=== PATIENT | female | born 1975 | race Caucasian/White ===

== ENCOUNTER 2022-09-11 16:35 | Emergency (ER) | payer BC, SELFPAY ==
[2022-09-11 16:44] VITALS: BP 140/72; PULSE 94; RESP 14; TEMP 36.7; O2SAT 100
[2022-09-11 16:58] VITALS: BP 140/72; PULSE 94; RESP 14; TEMP 36.7; O2SAT 100
--- NOTE | 2022-09-11 17:10 | ED.GENADULT ---
HPI - General Adult General Chief complaint: Urogenital-Female Stated complaint: Toothache/Facial Swelling Source: patient Mode of arrival: ambulatory Limitations: no limitations History of Present Illness HPI narrative: Patient presents for evaluation of multiple concerns. She reports right lower dental pain with associated swelling since yesterday. She indicates that she has a ?bad tooth? in the affected area. Pain is moderate in severity, without descriptive quality. No fever, chills, nausea, vomiting, trismus, problems handling secretions. She recently found out that her insurance does cover dental care so she is planning on scheduling appointment with a dentist. She is also concerned about some irritation to her vaginal area for the last few weeks. She has urinary frequency, itching, and feels ?cut up . She notes blood on the tissue when wiping after urination. She is in a sexually monogamous relationship with her . She denies vaginal discharge and other urinary symptoms. She states she has felt vaginal dryness as she has been going through menopause. She is diabetic with sees her blood sugars at home have been in the 150s. Related Data Home Medications Medication Instructions Recorded Confirmed gabapentin 100 mg tablet 100 mg PO DAILY 09/11/22 09/11/22 insulin aspart U-100 100 unit/mL 1 sliding scale dose subcut 09/11/22 09/11/22 (3 mL) subcutaneous pen (Novolog USEASDIRECTD Flexpen U-100 Insulin aspart) insulin glargine 100 unit/mL 8 unit subcut BID 09/11/22 09/11/22 subcutaneous solution (Lantus U-100 Insulin) Allergies Allergy/AdvReac Type Severity Reaction Status Date / Time hydrocodone Allergy Anxiety Verified 09/11/22 16:58 ibuprofen Allergy Swelling Verified 09/11/22 16:58 of Lip/Tongue/Throat Review of Systems Review of Systems: CONSTITUTIONAL: Denies fever, chills, or sweats. EYES: Denies visual changes, redness, or discharge. ENT: Reports right-sided dental pain with associated swelling. CARDIOVASCULAR: Denies chest pain, palpitations, or edema. RESPIRATORY: Denies cough or dyspnea. GASTROINTESTINAL: Denies abdominal pain, nausea, vomiting, or diarrhea. GENITOURINARY: Reports urinary frequency, vaginal irritation and dryness. Denies vaginal discharge or other urinary symptoms SKIN: Denies rash or itching. MUSCULOSKELETAL: Denies back pain, joint pain, or myalgia. NEUROLOGIC: Denies headache, numbness, dizziness, or weakness. PSYCHIATRIC: Denies anxiety or depression. [facility] Past Medical History Medical History Diabetes Surgical History Surgical History History of History of hand surgery Family History Family History Mother Family history non-contributory Social History Social History Living arrangements: with family Gender identity (if verbalized by the patient): Female Sexual Orientation (if Verbalized by the Patient): Straight or Heterosexual Spiritual care concerns: No Exam Narrative: GENERAL: Well-appearing, well-nourished, and in no acute distress. HEAD: Normocephalic, atraumatic. EYES: PERRLA and EOMI. ENT: Nares clear, no rhinorrhea or epistaxis. Mucous membranes moist. Tooth #29 is fractured. There is tenderness in the gum line adjacent to tooth #29 but there is no discrete drainable fluid collection visualized or palpated. There is right sided mandibular swelling. Oropharynx without tonsillar hypertrophy exudate or other lesions. Bilateral TMs pearly blake nonbulging NECK: Supple. No adenopathy or masses. No carotid bruits or JVD CHEST: Clear to auscultation. No respiratory distress. No wheezes rales or rhonchi HEART: Regular rate and rhythm. No murmur heard. Normal peripheral pulses.
== END 2022-09-11 17:31 | disposition home or self-care (01) ==
PROVIDERS: Emergency Provider Nurse Practitioner; PCP Nurse Practitioner Family
DX: N76.0 Acute vaginitis (principal); S02.5XXA Fracture of tooth (traumatic), initial encounter for closed fracture; X58.XXXA Exposure to other specified factors, initial encounter; E11.9 Type 2 diabetes mellitus without complications
CPT/HCPCS: 81003; 87070; 87491; 87591; 87661; 99214; G0463

== ENCOUNTER 2023-02-17 08:50 | Emergency (ER) | payer BC, SELFPAY ==
[2023-02-17 08:58] VITALS: BP 139/93; PULSE 93; RESP 20; TEMP 36.6; O2SAT 100
--- NOTE | 2023-02-17 08:58 | ED.EAR ---
HPI - Ear Problem General Chief complaint: Ear Stated complaint: ear clogged Time Seen by Provider: 02/17/23 08:58 Source: patient, family and RN notes reviewed History of Present Illness HPI Narrative: Patient is a 47-year-old female who presents to urgent care with complaints of bilateral ear clogging. Patient states that she is having ringing in the ears and feels muffled. Patient has not taken anything [id number] for her symptoms. Denies any other upper respiratory complaints. No acute distress noted. Patient aware of plan of care. Some parts of this dictation were generated by voice recognition software and may contain typographical and/or grammatical inaccuracies. Related Data Home Medications Medication Instructions Recorded Confirmed insulin glargine 100 unit/mL 8 unit subcut BID 09/11/22 09/11/22 subcutaneous solution (Lantus U-100 Insulin) insulin lispro 100 unit/mL subcut 02/17/23 02/17/23 subcutaneous pen Allergies Allergy/AdvReac Type Severity Reaction Status Date / Time hydrocodone Allergy Anxiety Verified 02/17/23 09:07 ibuprofen Allergy Swelling Verified 02/17/23 09:07 of Lip/Tongue/Throat Review of Systems Review of Systems: CONSTITUTIONAL: Denies fever, chills, or sweats. EYES: Denies visual changes, redness, or discharge. ENT: Denies rhinorrhea, congestion, sore throat. Reports of bilateral otalgia CARDIOVASCULAR: Denies chest pain, palpitations, or edema. RESPIRATORY: Denies cough or dyspnea. GASTROINTESTINAL: Denies abdominal pain, nausea, vomiting, or diarrhea. GENITOURINARY: Denies dysuria or hematuria. SKIN: Denies rash or itching. MUSCULOSKELETAL: Denies back pain, joint pain, or myalgia. NEUROLOGIC: Denies headache, numbness, or weakness. All other systems reviewed are negative, except as documented in HPI. [facility] Past Medical History Medical History (Updated 02/17/23 @ 09:44 by JULIA Selby) Diabetes Surgical History Surgical History History of History of hand surgery Family History Family History Mother Family history non-contributory Social History Social History Living arrangements: with family Gender identity (if verbalized by the patient): Female Sexual Orientation (if Verbalized by the Patient): Straight or Heterosexual Spiritual care concerns: No Comments At the time of my signature, I reviewed and agree with the nursing past medical, surgical, social, and family history. There is no relevant family history pertinent to the patient complaint. Exam Narrative: GENERAL: This is a well-nourished, well-developed patient, in no apparent distress. HEAD: normocephalic, atraumatic. EYES: PERRL. Sclera clear/white. Vision is grossly intact. EARS: External ears normal, auditory canals clear and without drainage, unable to visualize bilateral TMs due to cerumen impaction NOSE: External nose normal with no obvious nasal discharge, nares without redness, no rhinorrhea. THROAT: Mucous membranes moist NECK: Neck supple SKIN: warm, intact with no suspicious lesions or rash, good texture and turgor. NEURO: awake, alert, and oriented to person, place and time. There were no obvious focal neurologic abnormalities. EXTREMITIES: No clubbing, cyanosis, or edema. Course Course Level of Care: Express Care Visit Vital Signs Vital signs: Vital Signs Temperature 97.8 F 02/17/23 08:58 Pulse Rate 93 02/17/23 08:58 Respiratory Rate 20 02/17/23 08:58 Blood Pressure 139/93 H 02/17/23 08:58 Pulse Oximetry 100 02/17/23 08:58 Oxygen Delivery Room Air 02/17/23 08:58 Temperature 97.8 F 02/17/23 08:58 Pulse Rate 93 02/17/23 08:58 Respiratory Rate 20 02/17/23 08:58 Blood Pressure 139/93 H 02/17/23 08:58 Pulse Oximetry 100
== END 2023-02-17 09:46 | disposition home or self-care (01) ==
PROVIDERS: Emergency Provider Nurse Practitioner Family; PCP Nurse Practitioner Family
DX: H61.23 Impacted cerumen, bilateral (principal); E11.9 Type 2 diabetes mellitus without complications
CPT/HCPCS: 69210; 99213; G0463

== ENCOUNTER 2023-05-20 08:08 | Emergency (ER) | payer BC, SELFPAY ==
[2023-05-20 08:12] VITALS: BP 154/97; PULSE 95; RESP 16; TEMP 36.3; O2SAT 100
--- NOTE | 2023-05-20 08:15 | ED.FEMALEGU ---
HPI - Female Genitourinary General Chief complaint: Urogenital-Female Stated complaint: Urinary Problem Source: patient and RN notes reviewed History of Present Illness HPI Narrative: 47 yo F Presents to urgent care with complaints of urinary urgency x 2 days. Pt reports a pressure in her mid lower pelvic region. Pt admits to having her initial appt with a GI MD next month to be evaluated for IBS. Pt reports having loose, watery, bowels at times and feels like there is a hard stool that she is unable to get out. Pt denies any burning with urination. Pt denies any known fevers, vomiting, flank pain, or concern for STIs. Related Data Home Medications Medication Instructions Recorded Confirmed insulin glargine 100 unit/mL 8 unit subcut BID 09/11/22 05/20/23 subcutaneous solution (Lantus U-100 Insulin) insulin lispro 100 unit/mL subcut 02/17/23 02/17/23 subcutaneous pen Allergies Allergy/AdvReac Type Severity Reaction Status Date / Time hydrocodone Allergy Anxiety Verified 02/17/23 09:07 ibuprofen Allergy Swelling Verified 02/17/23 09:07 of Lip/Tongue/Throat Penicillins Allergy Rash Verified 05/20/23 08:17 Review of Systems Review of Systems: Pertinent positives and pertinent negatives per HPI. [facility] Past Medical History Medical History (Updated 05/20/23 @ 08:31 by Hodan Dong APRN) Diabetes Surgical History Surgical History History of History of hand surgery Family History Family History Mother Family history non-contributory Social History Social History Living arrangements: with family Gender identity (if verbalized by the patient): Female Sexual Orientation (if Verbalized by the Patient): Straight or Heterosexual Spiritual care concerns: No Comments At the time of my signature, I reviewed and agree with the nursing past medical, surgical, social, and family history. There is no relevant family history pertinent to the patient complaint. Exam Narrative: GENERAL: This is a well-nourished, well-developed patient, in no apparent distress. HEAD: normocephalic, atraumatic. EYES: Sclera clear/white. Vision is grossly intact. EARS: External ears normal, auditory canals clear and without drainage. Hearing grossly intact. NOSE: External nose normal with no obvious nasal discharge, nares without redness, no rhinorrhea. THROAT: Mucous membranes moist, posterior pharynx clear. NECK: Neck supple, non-tender without lymphadenopathy, masses or thyromegaly. CARDIOVASCULAR: Regular rate and rhythm without murmurs, gallops, or rubs. RESPIRATORY: Clear to auscultation. Breath sounds equal bilaterally. No wheezes, rales, or rhonchi. GASTROINTESTINAL:Abdomen soft, non-tender. bowel sounds hypoactive. SKIN: warm, intact with no suspicious lesions or rash, good texture and turgor. NEURO: awake, alert, and oriented to person, place and time. There were no obvious focal neurologic abnormalities. EXTREMITIES: No clubbing, cyanosis, or edema. No joint tenderness, effusion, or edema noted. BACK: Nontender without deformity or crepitus. No flank tenderness. Course Course Level of Care: Express Care Visit Vital Signs Vital signs: Vital Signs Temperature 97.3 F L 05/20/23 08:12 Pulse Rate 95 05/20/23 08:12 Respiratory Rate 16 05/20/23 08:12 Blood Pressure 154/97 H 05/20/23 08:12 Pulse Oximetry 100 05/20/23 08:12 Oxygen Delivery Room Air 05/20/23 08:12 Temperature 97.3 F L 05/20/23 08:18 Pulse Rate 95 05/20/23 08:18 Respiratory Rate 16 05/20/23 08:18 Blood Pressure 154/97 H 05/20/23 08:18 Pulse Oximetry 100 05/20/23 08:18 Oxygen Delivery Room Air 05/20/23 08:18 Reviewed MDM - Female Genitourinary MDM Narrative Medical decision making narrative
[2023-05-20 08:18] VITALS: BP 154/97; PULSE 95; RESP 16; TEMP 36.3; O2SAT 100
== END 2023-05-20 08:38 | disposition home or self-care (01) ==
PROVIDERS: Emergency Provider Nurse Practitioner Family; PCP Nurse Practitioner Family
DX: K59.00 Constipation, unspecified (principal); E11.9 Type 2 diabetes mellitus without complications; Z79.4 Long term (current) use of insulin
CPT/HCPCS: 81003; 99212; G0463

== ENCOUNTER 2024-09-08 16:53 | Emergency (ER) | payer BC, SELFPAY ==
[2024-09-08 17:04] VITALS: BP 144/71; PULSE 76; RESP 16; TEMP 36.8; O2SAT 100
--- NOTE | 2024-09-08 17:10 | ED.DENTAL ---
HPI - Dental/Oral General Chief complaint: Dental/Oral Stated complaint: tooth pain History of Present Illness HPI Narrative: NO FEVER. NO JAW SWELLING. NO NECK SWELLING. NO LIMITATION WITH SPEAKING OR SWALLOWING. HAS A HISTORY OF DENTAL CARIES. HAS NOT SEEN A DENTIST RECENTLY. Related Data Home Medications Medication Instructions Recorded Confirmed blood-glucose sensor (Dexcom G7 09/08/24 09/08/24 Sensor device) gabapentin 100 mg capsule mg 09/08/24 insulin lispro 100 unit/mL subcut 09/08/24 subcutaneous pen Allergies Allergy/AdvReac Type Severity Reaction Status Date / Time hydrocodone Allergy Anxiety Verified 02/17/23 09:07 ibuprofen Allergy Swelling Verified 02/17/23 09:07 of Lip/Tongue/Throat Penicillins Allergy Rash Verified 05/20/23 08:17 Review of Systems Review of Systems: CONSTITUTIONAL: Denies fever, chills, or sweats. EYES: Denies visual changes, redness, or discharge. ENT: Denies rhinorrhea, congestion, sore throat, or otalgia. CARDIOVASCULAR: Denies chest pain, palpitations, or edema. RESPIRATORY: Denies cough or dyspnea. GASTROINTESTINAL: Denies abdominal pain, nausea, vomiting, or diarrhea. GENITOURINARY: Denies dysuria or hematuria. SKIN: Denies rash or itching. MUSCULOSKELETAL: Denies back pain, joint pain, or myalgia. NEUROLOGIC: Denies headache, numbness, or weakness. PSYCHIATRIC: Denies anxiety or depression. [facility] Past Medical History Medical History (Updated 09/08/24 @ 17:11 by JULIA Nixon) Diabetes Surgical History Surgical History History of History of hand surgery Family History Family History Mother Family history non-contributory Social History Social History Living arrangements: with family Gender identity (if verbalized by the patient): Female Sexual Orientation (if Verbalized by the Patient): Straight or Heterosexual Spiritual care concerns: No Comments At time of signature, agree with nursing past medical, surgical, social and family history. There is no relevant family history pertinent to the presenting complaint Exam Narrative: GENERAL: Well-appearing, well-nourished, and in no acute distress. HEAD: Normocephalic, atraumatic. EYES: PERRLA and EOMI. ENT: Nares clear, no rhinorrhea or epistaxis. Mucous membranes moist. NO EVE APICAL SWELLING, TOOTH TENDER TO PALPATION. NO FACIAL SWELLING. NO TRISMUS. ABLE TO OPEN MOUTH FULLY. NO NECK SWELLING OR REBEKA'S ANGINA. NO ABSCESS TO BE DRAINED. no drooling, trismus, facial asymmetry or significant neck swelling NECK: Supple. CHEST: Clear to auscultation. No respiratory distress. HEART: Regular rate and rhythm. No murmur heard. Normal peripheral pulses. ABDOMEN: Soft, nontender, nondistended, normal active bowel sounds. EXTREMITIES: Normal range of motion. No edema. SKIN: Warm, dry, no rash. NEURO: No focal deficits. Alert and oriented x3. Martha Coma Scale Eye Opening: Spontaneous 4 [place] Coma Scale Motor: Obeys Commands 6 Martha Coma Scale Verbal: Oriented 5 [place] Coma Scale Total 15 Course Course Level of Care: Express Care Visit Vital Signs Vital signs: Vital Signs Temperature 36.8 C 09/08/24 17:04 Pulse Rate 76 09/08/24 17:04 Respiratory Rate 16 09/08/24 17:04 Blood Pressure 144/71 H 09/08/24 17:04 Pulse Oximetry 100 09/08/24 17:04 Oxygen Delivery Room Air 09/08/24 17:04 Temperature 36.8 C 09/08/24 17:04 Pulse Rate 76 09/08/24 17:04 Respiratory Rate 16 09/08/24 17:04 Blood Pressure 144/71 H 09/08/24 17:04 Pulse Oximetry 100 09/08/24 17:04 Oxygen Delivery Room Air 09/08/24 17:04 Please GAURAV schedule a followup visit with your personal physician for further evaluation and treatment. Including recheck and discussion of your blood pressure. If your symptoms persist, change or worsen significantly before you can contact your personal physician then please, without delay, go to the emergency department for further evaluation Discharge Plan Discharge Clinical Impression: Dental caries, Toothache, Dental abscess Patient Disposition: Home, Self-Care Condition: Stable Instructions: Antibiotic Form Additional Instructions: Dental discharge Avoid temperature extremes May apply heat or ice to the face Gentle brushing and flossing Antibiotic as directed Tylenol for lesser pain Follow-up with the dentist as soon as possible--see the list provided -If you have any worsening of symptoms or any other concerns please go to the ED immediately. Prescriptions: New clindamycin HCl [Cleocin HCl] 300 mg capsule 300 mg PO Q8H 7 Days Qty: 21 0RF lidocaine HCl [Lidocaine Viscous] 2 % solution 1 applic MUCOUS MEM BID PRN (Reason: pain) 3 Days Qty: 100 0RF No Action gabapentin 100 mg capsule insulin lispro 100 unit/mL insulin pen SUBCUT (DME) Dexcom G7 Sensor Device MISCELLANEOUS Follow-up/Referrals: Lisa,Radha Freire APN [Primary Care Provider] -
== END 2024-09-08 17:16 | disposition home or self-care (01) ==
PROVIDERS: Emergency Provider Nurse Practitioner Family; PCP Nurse Practitioner Family
DX: K02.9 Dental caries, unspecified (principal); K04.7 Periapical abscess without sinus; E11.9 Type 2 diabetes mellitus without complications
CPT/HCPCS: 99213; G0463

== ENCOUNTER 2025-05-26 11:33 | Emergency (ER) | payer BC, SELFPAY ==
--- OUTSIDE RECORDS SUMMARY | 2025-05-26 11:35 | XMS_ITS | Continuity of Care Document ---
Author Organization [facility] Address [id number] [place] [address] [address] [place] [address] Phone Care Team Providers Care Blower Insulator Name Role Phone Jovita Gautam Unavailable Unavailable Advance Directives Directive Yes / No Effective Date File Name No Information Encounters Encounter Description Practice Location Reason(s) For Visit Diagnoses Date Provider Providers Copied on Encounter [facility], [id number] [place] [address] [address], [place], [place], [id number], [place] tel:[phone] [facility] No Information 3 Lotus Hussein. [address] , [address], [place], [address], [place]. tel:[phone] Referring Provider: Benji Monreal MD, [address], [facility]. tel:[phone] Family History Family Member Type Diagnosis Age At Onset No Information Payers Payer name Insurance type Covered constitution party ID Authoriza tion(s) No Information Social [...]
--- OUTSIDE RECORDS SUMMARY | 2025-05-26 11:35 | XMS_ITS | Continuity of Care Document ---
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 Name Role Phone Unavailable Unavailable Unavailable Allergies, [...] EAR STICK) OFFICE/OUTPATIENT VISIT, EST OFFICE/OUTPATIENT VISIT, [facility] COLLECTION OF VENOUS BLOOD BY VENIPUNCTU Advance Directives Directive Yes / No Effective Date File Name No Information Encounters Encounter Description Practice Location Reason(s) For Visit Diagnoses Date Provider Providers Copied on Encounter [facility], [address], [place], [place], [id number] , [place] tel: [phone] [facility] No Information 4 No Information [facility], [address], [place], [place], [id number] , [place] tel:[phone] [facility] No Information 3 No Information OFFICE/OUTPA TIENT VISIT, EST [facility], [address], [place], [place], [id number] , [place] tel: [phone] [facility] diabetes (chief complaint) allergies (chief complaint) back pain (chief complaint) Diabetes with ketoacidosis, type I [juvenile type], not stated as uncontrolledAllerg ic reaction caused by a drugLumbagoRoutine general medical examination at a health care facility 3 No Information OFFICE/OUTPA TIENT VISIT, MARIANNA [facility], [address], [place], [place], [id number] , [place] tel: [phone] Helga Grimaldo rt eye problem (chief complaint) Diabetes mellitus without mention of complication, type II or unspecified type, not stated as uncontrolledHordeo lum externum 2 No Information OFFICE/OUTPA TIENT VISIT, CONNIE [facility], [address], [place], [place], [id number] , [place] tel: [phone] Helga Grimaldo diabetes (chief complaint) blisters on feet (chief complaint) preegnancy test (chief complaint) Diabetes with ketoacidosis, type I [juvenile type], not stated as uncontrolledDiabet es mellitus without mention of complication, type II or unspecified type, not stated as uncontrolled 2 No Information Family History Family Member Type Diagnosis Age At Onset No Information Payers Payer name Insurance type Covered libertarian ID Authoriza tion(s) No Information Social History [...] t No Information Instructions Date Instruction Additional Infotabitha page Reviewed medications Change medication Patient understood and made info rmed decision Continue current medication Assessments Type Assessment Date No Information Patient Care Teams Name Effective Dates (start - stop) Status Members No Information
--- OUTSIDE RECORDS SUMMARY | 2025-05-26 11:35 | XMS_ITS | Data Portability ---
Author Organization [facility] Address [address] [place] [address] Care Team Providers Care Dependency Counselor Name Role Phone TIMO, RADHA Primary Care Provider [phone] RANJANA JORDAN Jacquard Lace Weaver Unavailable Assessment No assessment recorded. Plan of Treatment Reminders Order Date Submit Date Provider Last Modified By Organization Details Last Modified Time Details Appointments None recorded. Lab HbA1c (hemoglobin A1c), blood 2024 025 [facility], [address] [facility], [place], [address], 12:12:32 microalbumi n/creatinin e, mass ratio, urine 2024 025 [facility], [address] [facility], [place], [address], 12:12:29 TSH, ultra-sensi tive, serum 2024 025 [facility], [address], [place], [address], 12:12:31 CMP, serum or plasma 2024 025 [facility], [address], [place], [address], 12:12:24 lipid panel, serum 2024 025 NATHAN [facility], [address], [place], [address], 5 12:12:23 CBC 2024 025 NATHAN [facility], [address], [place], [address], 5 12:12:26 vaginal pathogens panel, ILIR+probe, vaginal fluid 2023 024 NATHAN [facility], [address], [place], [address], 4 18:35:49 Hepatitis C IgG Ab, qual, serum 2023 024 eemeryma [facility], [address], [place], [address], 4 16:13:54 HIV 1 + 2, meaningful use set 2023 024 eemeryma [facility], [address], [place], [address], 4 10:01:45 cytology report, thin prep, smear or scraping, cervical or vaginal 2023 024 [facility], [address], [place], [address], 4 14:36:26 HbA1c (hemoglobin A1c), blood 2023 024 In-Office Order, Internal Use Only DO Not Attach Compendium DO Not Attach Compendium, Do Not Delete/merge, [id number] 4 10:47:48 TITO (antinuclea r antibodies) screen, serum 2022 023 [facility], [address], [place], [address], 3 16:14:00 erythrocyte sedimentati on rate by westergren method 2022 023 [facility], [address] [facility], [facility], [place], [address], 3 16:14:02 C reactive protein, QN, serum or plasma 2022 023 [facility], [address] [facility], [facility], [place], [address], 3 16:14:03 microalbumi n/creatinin e, mass ratio, urine 2022 023 [facility], [address] [facility], [facility], [place], [address], 3 16:13:59 HbA1c (hemoglobin A1c), blood 2022 023 [facility], [address] [facility], [facility], [place], [address], 3 16:14:01 rf (rheumatoid factor) + anti-ccp abs, serum 2022 023 [facility], [address] [facility], [facility], [place], [address], 3 16:13:59 TSH, ultra-sensi tive, serum 2022 023 [facility], [address], [place], [address], 3 16:14:01 CMP, serum or plasma 2022 023 [facility], [address], [place], [address], 3 20:08:50 lipid panel, serum 2022 023 [facility], [address] [facility], [facility] [address], [place], [address], 3 20:08:49 CBC 2022 023 [facility], [address] [facility] [address], [place], [address], 3 20:08:51 Referral gastroenter ologist referral 2023 024 [email or web address] Augustine Jung MD, [address] [place], [address], 4 11:35:19 gastroenter ologist referral 2022 023 [email or web address] Augustine Jung MD, [address] [place], [address], 3 12:00:18 diabetic ophthalmolo gy referral 2022 023 [email or web address], [address], [place], [address], 3 15:40:30 numerical tool programmer referral 2022 023 [email or web address] [facility], [address], [place], [address], 3 16:44:28 Procedures None recorded. Surgeries None recorded. Imaging MAMMO, screening, digital, bilateral 2023 024 eemeryma [facility] ([facility] Scheduling, [address] [place], [address], 4 17:03:03 Medication Orders cephalexin 500 mg capsule 2024 025 [id number], [address], [place], [place], [id number], 5 09:44:27 estradiol 0.01% (0.1 mg/gram) vaginal cream 2023 025 [id number], [address], [place], [place], [id number], 5 11:11:35 gabapentin 100 mg capsule 2023 024 [id number], [address], [place], [place], [id number], 5 09:44:47 gabapentin 100 mg capsule 2022 023 NATHAN [facility][id number], [address], [place], [place], [id number], 3 10:00:17 Patient TargetsNo targets recorded. Patient Instructions Encounter Date Encounter Id Patient Instructions Last Modified By Organization Details Last Modified Time 06/23/2023 [id number] Quitting Tobacco : Care Instructions Not available 06/23/2023 10:00:09 learning about type 1 diabetes Not available 06/23/2023 10:00:09 type 1 diabetes: care instructions Not available 06/23/2023 10:00:09 Continue to work on diet and decrease A1C to < 7 with fasting glucose 100. Need to see eye drMartine each year for dilated eye exam. Increase activity level to get exercise most days of the week. Work on eating more fresh fruit, veggies and lean protein and less packaged foods. Cut back on the fatty foods, add fish oil or omega three fatty acids; red yeast rice may also help. Drink more water! Low salt diet. Take all medications as prescribed. Keep appointments with PCP and all specialists. Not available 06/23/2023 10:01:30 dwp labs needed, plan pending results schedule for 6 mos Not available 06/23/2023 14:20:47 01/12/2024 [id number] tailbone injury: care instructions Not available 01/12/2024 10:50:56 learning about type 1 diabetes Not available 01/12/2024 10:47:45 type 1 diabetes: care instructions Not available 01/12/2024 10:47:45 Continue to work on diet and decrease A1C to < 7 with fasting glucose 100. Need to see eye dr. each year for dilated eye exam. Increase activity level to get exercise most days of the week. Work on eating more fresh fruit, veggies and lean protein and less packaged foods. Cut back on the fatty foods, add fish oil or omega three fatty acids; red yeast rice may also help. Drink more water! Low salt diet. Take all medications as prescribed. Keep appointments with PCP and all specialists. Not available 01/12/2024 10:47:59 f/u 6 months DWP barriers to care: none Not available 01/12/2024 10:48:35 11/22/2024 [id number] Quitting Tobacco : Care Instructions Not available 11/22/2024 11:36:31 learning about type 1 diabetes Not available 11/22/2024 11:36:32 type 1 diabetes: care instructions Not available 11/22/2024 11:36:31 Increase intake of fresh fruits, and vegetables. Avoid packaged foods and fast foods. Follow a low salt diet, drink at least 8-10 8oz glasses of water a day, exercise most days of the week. Take all medications as prescribed. Keep appointments with PCP and all specialists. Not available 11/22/2024 11:36:56 follow up as needed, yearly to keep established with provider Not available 11/22/2024 11:37:12 03/11/2025 [id number] learning about type 1 diabetes Not available 03/11/2025 09:59:56 type 1 diabetes: care instructions Not available 03/11/2025 09:59:56 Continue all medications as prescribed. Not available 03/11/2025 09:58:45 follow up in 6 months Not available 03/11/2025 09:58:57 Reason for Referral Console Operator Referral for Altered bowel function Referring Physician: [facility], Encounter Date: 06/23/2023 Compensation Director Referral for Neur opathy due to diabetes mellitus Referring Physician: Family Tacho Garcia, Encounter Date: 06/23/2023 Diabetic Ophthalmology Refer ral for Type 1 diabetes mellitus Referring Physician: Family Tacho Garcia, Encounter Date: 06/23/2023 Console Operator Referral for Altered bowel function Referring Physician: Family Tacho Garcia, Encounter Date: 01/12/2024 Results Created Date Observation Date Name Description Value Unit Range Abnormal Flag Note LastModifiedBy Organization Detail LastModifiedTime 06/23/20 23 06/23/2023 LIPID PANEL cholesterol, total 223 mg/dL 100-19 9 above high normal Not Available [facility] Department [address] [place] [address], [address], 06/23/2023 20:08:49 06/23/20 23 06/23/2023 LIPID PANEL triglyceride s 87 mg/dL 0-149 Not Available [facility] Department [address] [place] [address], [address], 06/23/2023 20:08:49 06/23/20 23 06/23/2023 LIPID PANEL HDL cholesterol 92 mg/dL 40-999 Not Available [facility] Department [address] [place], [address], 06/23/2023 20:08:49 06/23/20 23 06/23/2023 LIPID PANEL VLDL cholesterol prasanth 17 mg/dL 5-40 Not Available [facility] Department [address] [place], [address], 06/23/2023 20:08:49 06/23/20 23 06/23/2023 LIPID PANEL LDL chol calc ([facility]) 127 mg/dL 0-99 above high normal Not Available [facility] Department [address] [place], [address], 06/23/2023 20:08:49 06/23/20 23 06/23/2023 COMP. METAB OLIC PANEL (14) glucose 165 mg/dL 70-99 above high normal Not Available [facility] Department [address] [place], [address], 06/23/2023 20:08:50 06/23/20 23 06/23/2023 COMP. METAB OLIC PANEL (14) BUN 12 mg/dL 6-[address] [facility] Department [address] [place], [address], 06/23/2023 20:08:50 06/23/20 23 06/23/2023 COMP. METAB OLIC PANEL (14) creatinine 0.63 mg/dL 0.76-1 .27 below low normal Not Available [facility] Department [address] [place], [address], 06/23/2023 20:08:50 06/23/20 23 06/23/2023 COMP. METAB OLIC PANEL (14) eGFR 110 >=60 Units for eGFR value s are mL/mi n/1.7 3 The eGFR Calcu latio n has not been valid ated for patie nts under the age of 18. If test resul ts are displ ayed for a patie nt under the age of 18, disre nannette that value . Not Available [facility] Department [address] [place] [address], [address], 06/23/2023 20:08:50 06/23/20 23 06/23/2023 COMP. METAB OLIC PANEL (14) BUN/creatini ne ratio 20 9-23 Not Available [facility] Department [address] [place], [address], 06/23/2023 20:08:50 06/23/20 23 06/23/2023 COMP. METAB OLIC PANEL (14) sodium 143 mmol/ L 134-[address] [facility] Department [address] [place] [address], [address], 06/23/2023 20:08:50 06/23/20 23 06/23/2023 COMP. METAB OLIC PANEL (14) potassium 4.0 mmol/ L 3.5-5. [address] [facility] Department [address] [place], [address], 06/23/2023 20:08:50 06/23/20 23 06/23/2023 COMP. METAB OLIC PANEL (14) chloride 98 mmol/ L 96-[address] [facility] Department [address] [place], [address], 06/23/2023 20:08:50 06/23/20 23 06/23/2023 COMP. METAB OLIC PANEL (14) carbon dioxide, total 32 mmol/ L 20-29 above high normal Not Available [facility] Department [address] [place], [address], 06/23/2023 20:08:50 06/23/20 23 06/23/2023 COMP. METAB OLIC PANEL (14) calcium 9.8 mg/dL 8.7-[address] [facility] Department [address] [place], [address], 06/23/2023 20:08:50 06/23/20 23 06/23/2023 COMP. METAB OLIC PANEL (14) protein, total 7.4 g/dL 6.0-8. [address] [facility] Department [address] [place], [address], 06/23/2023 20:08:50 06/23/20 23 06/23/2023 COMP. METAB OLIC PANEL (14) albumin 4.6 g/dL 3.9-4. [address] [facility] Department [address] [place], [address], 06/23/2023 20:08:50 06/23/20 23 06/23/2023 COMP. METAB OLIC PANEL (14) globulin, total 2.8 g/dL 1.5-4. [address] [facility] Department [address] [place], [address], 06/23/2023 20:08:50 06/23/20 23 06/23/2023 COMP. METAB OLIC PANEL (14) A/G ratio 1.7 1.2-2. [address] [facility] Department [address] [place], [address], 06/23/2023 20:08:50 06/23/20 23 06/23/2023 COMP. METAB OLIC PANEL (14) bilirubin, total 0.3 mg/dL 0.0-1. [address] [facility] Department [address] [place] [address], [address], 06/23/2023 20:08:50 06/23/20 23 06/23/2023 COMP. METAB OLIC PANEL (14) alkaline phosphatase 77 IU/L 44-121 Not Available [facility] Department [address] [place] [address], [address], 06/23/2023 20:08:50 06/23/20 23 06/23/2023 COMP. METAB OLIC PANEL (14) AST (SGOT) 31 IU/L 0-40 Not Available [facility] Department [address] [place], [address], 06/23/2023 20:08:50 06/23/20 23 06/23/2023 COMP. METAB OLIC PANEL (14) ALT (SGPT) 29 IU/L 0-32 Not Available [facility] Department [address] [place] [address], [address], 06/23/2023 20:08:50 06/23/20 23 06/23/2023 CBC, NO DIFFE RENTI AL/PL ATELE T WBC 8.3 x10e3 /uL 3.4-[address] [facility] Department [address] [place] [address], [address], 06/23/2023 20:08:51 06/23/20 23 06/23/2023 CBC, NO DIFFE RENTI AL/PL ATELE T RBC 4.39 x10e6 /uL 3.77-[address] [facility] Department [address] [place], [address], 06/23/2023 20:08:51 06/23/20 23 06/23/2023 CBC, NO DIFFE RENTI AL/PL ATELE T hemoglobin 13.6 g/dL 11.1-[address] [facility] Department [address] [place], [address], 06/23/2023 20:08:51 06/23/20 23 06/23/2023 CBC, NO DIFFE RENTI AL/PL ATELE T hematocrit 42.5 % 34.0-[address] [facility] Department [address] [place], [address], 06/23/2023 20:08:51 06/23/20 23 06/23/2023 CBC, NO DIFFE RENTI AL/PL ATELE T MCV 97 fL 79-[address] [facility] Department [address] [place], [address], 06/23/2023 20:08:51 06/23/20 23 06/23/2023 CBC, NO DIFFE RENTI AL/PL ATELE T MCH 31.0 pg 26.6-[address] [facility] Department [address] [place], [address], 06/23/2023 20:08:51 06/23/20 23 06/23/2023 CBC, NO DIFFE RENTI AL/PL ATELE T MCHC 32.0 g/dL 31.5-[address] [facility] Department [address] [place], [address], 06/23/2023 20:08:51 06/23/20 23 06/23/2023 CBC, NO DIFFE RENTI AL/PL ATELE T RDW 13.2 % 11.5-[address] [facility] Department [address] [place], [address], 06/23/2023 20:08:51 06/23/20 23 06/23/2023 CBC, NO DIFFE RENTI AL/PL ATELE T NRBC 0 % 0-0 Not Available [facility] Department [address] [place], [address], 06/23/2023 20:08:51 06/23/20 23 06/24/2023 ALBUM IN/CR EAT RATIO , RANDO M UR creatinine, urine 92.7 mg/dL notest ab. Not Available [facility] ([facility]) [address] [place], [address], 06/24/2023 16:13:59 06/23/20 23 06/24/2023 ALBUM IN/CR EAT RATIO , RANDO M UR albumin, urine 5.4 ug/mL notest ab. Not Available [facility] ([facility]) [address] [place], [address], 06/24/2023 16:13:59 06/23/20 23 06/24/2023 ALBUM IN/CR EAT RATIO , RANDO M UR alb/creat ratio 6 mg/g_ creat 0-29 Sabina l: 0 - 29 Moder ately incre ased: 30 - 300 Sever phu incre ased: >300 Not Available [facility] ([facility]) [address] [place], [address], 06/24/2023 16:13:59 06/23/20 23 06/24/2023 RHEUM ATOID ARTHR ITIS PROFI LE rheumatoid factor (rf) <10.0 IU/mL <14.0 Not Available [facility] ([facility]) [address] [place], [address], 06/24/2023 16:13:59 06/23/20 23 06/24/2023 RHEUM ATOID ARTHR ITIS PROFI LE anti-ccp Ab, IgG/IgA 3 units 0-19 Negat lucrecia <20 Weak posit lucrecia 20 - 39 Moder ate posit lucrecia 40 - 59 Stron g posit lucrecia >59 Not Available [facility] ([facility]) [address] [place], [address], 06/24/2023 16:13:59 06/23/20 23 06/24/2023 ANTIN UCLEA R AB MULTI PLEX RFX 9 TITO direct Positi ve negati ve abnormal Not Available [facility] ([facility]) [address] [place], [address], 06/24/2023 16:14:00 06/23/20 23 06/24/2023 ANTIN UCLEA R AB MULTI PLEX RFX 9 anti-DNA (ds) Ab qn 1 IU/mL 0-9 Negat lucrecia <5 Equiv ocal 5 - 9 Posit lucrecia >9 Not Available [facility] ([facility]) [address] [place], [address], 06/24/2023 16:14:00 06/23/20 23 06/24/2023 ANTIN UCLEA R AB MULTI PLEX RFX 9 senior cytogenetics laboratory director antibodies 1.2 ai 0.0-0. 9 above high normal Not Available [facility] ([facility]) [address] [place], [address], 06/24/2023 16:14:00 06/23/20 23 06/24/2023 ANTIN UCLEA R AB MULTI PLEX RFX 9 chatman antibodies <0.2 ai 0.0-0. 9 Not Available [facility] ([facility]) [address] [place], [address], 06/24/2023 16:14:00 06/23/20 23 06/24/2023 ANTIN UCLEA R AB MULTI PLEX RFX 9 antisclerode rma-70 antibodies <0.2 Not Available [facility] ([facility]) [address] [place], [address], 06/24/2023 16:14:00 06/23/20 23 06/24/2023 ANTIN UCLEA R AB MULTI PLEX RFX 9 sjogren's anti-ss-A <0.2 Not Available [facility] ([facility]) [address] [place], [address], 06/24/2023 16:14:00 06/23/20 23 06/24/2023 ANTIN UCLEA R AB MULTI PLEX RFX 9 sjogren's anti-ss-B <0.2 Not Available [facility] ([facility]) [address] [place], [address], 06/24/2023 16:14:00 06/23/20 23 06/24/2023 ANTIN UCLEA R AB MULTI PLEX RFX 9 antichromati n antibodies <0.2 Not Available [facility] ([facility]) [address] [place], [address], 06/24/2023 16:14:00 06/23/20 23 06/24/2023 ANTIN UCLEA R AB MULTI PLEX RFX 9 anti-celeste-1 <0.2 Not Available [facility] ([facility]) [address] [place], [address], 06/24/2023 16:14:00 06/23/20 23 06/24/2023 ANTIN UCLEA R AB MULTI PLEX RFX 9 anti-centrom ere B antibodies <0.2 Not Available [facility] ([facility]) [address] [place], [address], 06/24/2023 16:14:00 06/23/20 23 06/24/2023 ANTIN UCLEA R AB MULTI PLEX RFX 9 see below: Yessy t Autoa ntibo dy Disea se Assoc iatio n ----- ----- ----- ----- ----- ----- ----- ----- ----- ----- ----- ----- Condi tion Mohinder ency ----- ----- ----- ----- - ----- ----- ----- ----- ---- ----- ---- Antin uclea r Antib [place], SLE, mixed conne ctive Direc t (TITO- D) tissu e disea ses ----- ----- ----- ----- - ----- ----- ----- ----- ---- ----- ---- dsDNA SLE 40 - 60% ----- ----- ----- ----- - ----- ----- ----- ----- ---- ----- ---- Chrom atin Drug induc ed SLE 90% SLE 48 - 97% ----- ----- ----- ----- - ----- ----- ----- ----- ---- ----- ---- SSA (Ro) SLE 25 - 35% Sjogr en's Syndr ome 40 - 70% Neona daniel Lupus 100% ----- ----- ----- ----- - ----- ----- ----- ----- ---- ----- ---- SSB (La) SLE 10% Sjogr en's Syndr ome 30% ----- ----- ----- ----- - ----- ----- ----- ----- --- ----- ---- Sm (anti -Isaias h) SLE 15 - 30% ----- ----- ----- ----- - ----- ----- ----- ----- --- ----- ---- HOROLOGIST Mixed Conne ctive Tissu e Disea se 95% (U1 nRNP, SLE 30 - 50% anti- ribon ucleo prote in) Polym yosit is and/o r [place] tomyo sitis 20% ----- ----- ----- ----- - ----- ----- ----- ----- ---- ----- ---- Scl-7 0 (anti DNA Scler oderm a (diff use) 20 - 35% topoi corby ase) Crest 13% ----- ----- ----- ----- - ----- ----- ----- ----- ---- ----- ---- Celeste-1 Polym yosit is and/o r [place] tomyo sitis 20 - 40% ----- ----- ----- ----- - ----- ----- ----- ----- ---- ----- ---- Centr omere B Scler oderm a - Crest varia nt 80% Not Available [facility] ([facility]) [address] [place], [address], 06/24/2023 16:14:00 06/23/20 23 06/24/2023 TSH RFX ON ABNOR MAL TO FREE T4 TSH 3.860 uIU/m L 0.450- 4.500 Not Available [facility] ([facility]) [address] [place], [address], 06/24/2023 16:14:01 06/23/20 23 06/24/2023 HEMOG LOBIN A1C hemoglobin A1C 11.0 % 4.8-5. 6 above high normal Predi abete s: 5.7 - 6.4 Diabe marty: >6.4 Glyce kika contr ol for adult s with diabe marty: <7.0 Not Available [facility] ([facility]) [address] [place], [address], 06/24/2023 16:14:01 06/23/20 23 06/24/2023 SEDIM ENTAT ION RATE- WESTE RGREN sedimentatio n rate-westerg derek 2 mm/HR 0-32 Not Available [facility] ([facility]) [address] [facility], [place], [address], 06/24/2023 16:14:02 06/23/20 23 06/24/2023 C-WALLY CTIVE PROTE IN, QUANT C-reactive protein, quant <1 mg/L 0-10 Not Available [facility] ([facility]) [address] [facility], [place], [address], 06/24/2023 16:14:02 11/01/20 23 11/01/2023 Compr ehens lucrecia metab olic 1999 panel - Serum or Plasm a sodium [moles/volum e] in serum or plasma 133 mmol/ L low: 136mmo l/Lhig h: 145mmo l/L low SODIU M 133 (L) 136 - 145 mmol/ L 11/01 1:19 AM MARINE EQUIPMENT TEST ENGINEER [facility] Not Available Not Available 02/15/2025 09:10:37 11/01/20 23 11/01/2023 Compr ehens lucrecia metab olic 1999 panel - Serum or Plasm a potassium [moles/volum e] in serum or plasma 4.2 mmol/ L low: 3.5mmo l/Lhig h: 5.1mmo l/L POTAS SIUM 4.2 3.5 - 5.1 mmol/ L 11/01 1:19 AM MARINE EQUIPMENT TEST ENGINEER [facility] Not Available Not Available 02/15/2025 09:10:37 11/01/20 23 11/01/2023 Compr ehens lucrecia metab olic 2000 panel - Serum or Plasm a chloride [moles/volum e] in serum or plasma 93 mmol/ L low: 98mmol /Lhigh : 107mmo l/L low CHLOR DONTAE 93 (L) 98 - 107 mmol/ L 11/01 1:19 AM MARINE EQUIPMENT TEST ENGINEER [facility] Not Available Not Available 02/15/2025 09:10:37 11/01/20 23 11/01/2023 Compr ehens lucrecia metab olic 1999 panel - Serum or Plasm a carbon dioxide, total [moles/volum e] in serum or plasma 19 mmol/ L low: 22mmol /Lhigh : 30mmol /L low CO2, VENOU S 19 (L) 22 - 30 mmol/ L 11/01 1:19 AM MARINE EQUIPMENT TEST ENGINEER [facility] [employer] R LAB Not Available Not Available 02/15/2025 09:10:37 11/01/20 23 11/01/2023 Compr ehens lucrecia metab olic 1999 panel - Serum or Plasm a anion gap in serum or plasma by calculation 25.2 mmol/ L high: 18mmol /L high ANION GAP 25.2 (H) <18.0 mmol/ L 11/01 1:19 AM [facility] [employer] [facility] LAB Not Available Not Available 02/15/2025 09:10:37 11/01/20 23 11/01/2023 Compr ehens lucrecia metab olic 2000 panel - Serum or Plasm a glucose [mass/volume ] in serum or plasma 330 mg/dL low: 70mg/d Lhigh: 99mg/d L high GLUCO SE 330 (H) 70 - 99 mg/dL 11/01 1:19 AM [facility] [employer] [facility] LAB Not Available Not Available 02/15/2025 09:10:37 11/01/20 23 11/01/2023 Compr ehens lucrecia metab olic 1999 panel - Serum or Plasm a urea nitrogen [mass/volume ] in serum or plasma 9 mg/dL low: 5mg/dL high: 18mg/d L BUN 9 5 - 18 mg/dL 11/01 1:19 AM [facility] Not Available Not Available 02/15/2025 09:10:37 11/01/20 23 11/01/2023 Compr ehens lucrecia metab olic 2000 panel - Serum or Plasm a creatinine [mass/volume ] in serum or plasma 0.98 mg/dL low: 0.6mg/ dLhigh : 1mg/dL CREAT ININE , BLOOD 0.98 0.60 - 1.00 mg/dL 11/01 1:19 AM MARINE EQUIPMENT TEST ENGINEER [facility] Not Available Not Available 02/15/2025 09:10:37 11/01/20 23 11/01/2023 Compr ehens lucrecia metab olic 1999 panel - Serum or Plasm a urea nitrogen/cre atinine [mass ratio] in serum or plasma 9 text: 12 - 20 ratio low BUN/C REATI NINE RATIO 9 (L) 12 - 20 ratio 11/01 1:19 AM MARINE EQUIPMENT TEST ENGINEER [facility] Not Available Not Available 02/15/2025 09:10:37 11/01/20 23 11/01/2023 Compr ehens lucrecia metab olic 1999 panel - Serum or Plasm a protein [mass/volume ] in serum or plasma 7.6 g/dL low: 6.3g/d Lhigh: 8.2g/d L TOTAL PROTE IN 7.6 6.3 - 8.2 g/dL 11/01 1:19 AM MARINE EQUIPMENT TEST ENGINEER [facility] Not Available Not Available 02/15/2025 09:10:37 11/01/20 23 11/01/2023 Compr ehens lucrecia metab olic 1999 panel - Serum or Plasm a albumin [mass/volume ] in serum or plasma 4 g/dL low: 3.5g/d Lhigh: 5g/dL ALBUM IN 4.0 3.5 - 5.0 g/dL 11/01 1:19 AM MARINE EQUIPMENT TEST ENGINEER [facility] Not Available Not Available 02/15/2025 09:10:37 11/01/20 23 11/01/2023 Compr ehens lucrecia metab olic 1999 panel - Serum or Plasm a albumin/glob ulin [mass ratio] in serum or plasma 1.1 low: 1high: 2.2 A/G RATIO 1.1 1.0 - 2.2 11/01 1:19 AM MARINE EQUIPMENT TEST [facility]INE[facility] Not Available Not Available 02/15/2025 09:10:37 11/01/20 23 11/01/2023 Compr ehens lucrecia metab olic 1999 panel - Serum or Plasm a calcium [mass/volume ] in serum or plasma 9.5 mg/dL low: 8.7mg/ dLhigh : 10.5mg /dL CALCI UM 9.5 8.7 - 10.5 mg/dL 11/01 1:19 AM MARINE EQUIPMENT TEST ENGINEER [facility] [employer] R LAB Not Available Not Available 02/15/2025 09:10:37 11/01/20 23 11/01/2023 Compr ens lucrecia metab [facility] 1999 panel - Serum or Plasm a bilirubin.to daniel [mass/volume ] in serum or plasma 0.6 mg/dL low: 0.2mg/ dLhigh : 1.2mg/ dL T BILI 0.6 0.2 - 1.2 mg/dL 11/01 1:19 AM MARINE EQUIPMENT TEST ENGINEER [facility] [employer] Not Available Not Available 02/15/2025 09:10:37 11/01/20 23 11/01/2023 Compr ens lucrecia metab ic 1999 panel - Serum or Plasm a aspartate aminotransfe rase [enzymatic activity/vol ume] in serum or plasma 23 U/L low: 5U/Lhi gh: 34U/L SGOT (AST) 23 5 - 34 U/L 11/01 1:19 AM MARINE EQUIPMENT TEST ENGINEER [facility] [employer] [facility] Not Available Not Available 02/15/2025 09:10:37 11/01/20 23 11/01/2023 Compr ens lucrecia metab olic 1999 panel - Serum or Plasm a alanine aminotransfe rase [enzymatic activity/vol ume] in serum or plasma 14 U/L low: 0U/Lhi gh: 55U/L SGPT (ALT) 14 0 - 55 U/L 11/01 1:19 AM MARINE EQUIPMENT TEST ENGINEER [facility] [employer] [facility] Not Available Not Available 02/15/2025 09:10:37 11/01/20 23 11/01/2023 Compr ehens lucrecia metab olic 2000 panel - Serum or Plasm a alkaline phosphatase [enzymatic activity/vol ume] in serum or plasma 73 U/L low: 40U/Lh igh: 150U/L ALKAL INE PHOSP HATAS E 73 40 - 150 U/L 11/01 1:19 AM MARINE EQUIPMENT TEST ENGINEER [facility] Not Available Not Available 02/15/2025 09:10:37 11/01/20 23 11/01/2023 Compr ehens lucrecia metab olic 2000 panel - Serum or Plasm a glomerular filtration rate [volume rate/area] in serum, plasma or blood by creatinine-b ased formula (MDRD)/1.73 sq M among non black population low: 60 GFR, ESTIM ATED >60 >=60 11/01 1:19 AM 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 [facility] Not Available Not Available 02/15/2025 09:10:37 11/01/20 23 11/01/2023 Compr ehens lucrecia metab olic 2000 panel - Serum or Plasm a interpretati on and review of laboratory results Abnorm al Not Available Not Available 09:10:37 01/12/20 24 01/12/2024 HbA1c (hemo globi n A1c), blood HbA1c 10.2 Not Available In-Office Order Internal Use Only DO Not Attach Compendium DO Not Attach Compendium, Do Not Delete/merge, [id number] 01/12/2024 10:37:38 03/01/20 24 03/03/2024 NUSWA B VAGIN ITIS PLUS (VG+) atopobium vaginae Low - 0 score Not Available [facility] ([facility]) [address], [place], [address], 03/04/2024 18:35:49 03/01/20 24 03/03/2024 NUA B VAGIN ITIS PLUS (VG+) bvab 2 Low - 0 score Not Available [facility] ([facility]) [address], [place], [address], 03/04/2024 18:35:49 03/01/20 24 03/03/2024 NUA B VAGIN ITIS PLUS (VG+) megasphaera 1 Low - 0 score Calcu late total score by arnie yost the 3 indiv idual bacte rial vagin osis (BV) marke r score s toget her. Total score is inter prete d as follo ws: Total score 0-1: Indic ates the absen ce of BV. Total score 2: Indet ermin ate for BV. Addit ional clini prasanth data shoul d be evalu ated to estab ju a diagn osis. Total score 3-6: Indic ates the prese nce of BV. This test was devel oped and its perfo rmanc e mariam cteri stics deter mined by [facility]. It has not been clear ed or appro festus by the Food and Drug Admin istra tion. Not Available [facility] ([facility]) [address], [place], [address], 03/04/2024 18:35:49 03/01/20 24 03/03/2024 NUA B VAGIN ITIS PLUS (VG+) valeria albicans, ILIR Negati ve negati ve Not Available [facility] ([facility]) [address], [place], [address], 03/04/2024 18:35:49 03/01/20 24 03/03/2024 NUA B VAGIN ITIS PLUS (VG+) valeria glabrata, ILIR Negati ve negati ve Not Available [facility] ([facility]) [address], [place], [address], 03/04/2024 18:35:49 03/01/20 24 03/04/2024 NUA B VAGIN ITIS PLUS (VG+) trich vag by ILIR Negati ve negati ve Not Available [facility] ([facility]) [address], [place], [address], 03/04/2024 18:35:49 03/01/20 24 03/04/2024 NUA B VAGIN ITIS PLUS (VG+) chlamydia trachomatis, ILIR Negati ve negati ve Not Available [facility] ([facility]) [address] [place], [address], 03/04/2024 18:35:49 03/01/20 24 03/04/2024 NUA B VAGIN ITIS PLUS (VG+) neisseria gonorrhoeae, ILIR Negati ve negati ve Not Available [facility] ([facility]) [address], [place], [address], 03/04/2024 18:35:49 03/01/20 24 03/03/2024 IGP, APTIM A HPV, RFX 16/18 ,45 HPV aptima Negati ve negati ve This nucle ic acid ampli ficat ion test detec ts fourt een high- risk HPV types (16,1 8,31, 33,35 ,39,4 5,51, 52,56 ,58,5 9,66, 68) witho darren dumont atalejandro . Not Available [facility] ([facility]) [address] [place], [address], 03/05/2024 14:36:26 03/01/20 24 03/05/2024 IGP, APTIM A HPV, RFX 16/18 ,45 diagnosis: Commbrandyn t NEGAT LUCRECIA FOR INTRA EPITH ELIAL LESIO N OR DORA TURPIN . CELLU TIA AVELAR ES ASSOC IATED WITH INFLA MMATI ON ARE PRESE NT. Not Available [facility] ([facility]) [address] [place], [address], 03/05/2024 14:36:26 03/01/20 24 03/05/2024 IGP, APTIM A HPV, RFX 16/18 ,45 specimen adequacy: Commen t Satis facto ry for evalu ation . Endoc ervic al and/o r squam ous metap lasti c cells (endo cervi prasanth compo nent) are prese nt. Not Available [facility] ([facility]) [address] [place], [address], 03/05/2024 14:36:26 03/01/20 24 03/05/2024 IGP, APTIM A HPV, RFX 16/18 ,45 clinician provided ICD10: Yessy de la garza L29.3 Z11.5 9 Z11.4 Z12.4 Not Available [facility] ([facility]) [address] [place], [address], 03/05/2024 14:36:26 03/01/20 24 03/05/2024 IGP, APTIM A HPV, RFX 16/18 ,45 performed by: Yessy Frank and-Sylvia Murrieta (ASCP ) Not Available [facility] ([facility]) [address] [place], [address], 03/05/2024 14:36:26 03/01/20 24 03/05/2024 IGP, APTIM A HPV, RFX 16/18 ,45 . . Not Available [facility] ([facility]) [address] [place], [address], 03/05/2024 14:36:26 03/01/20 24 03/05/2024 IGP, APTIM A HPV, RFX 16/18 ,45 note: Commen t The Pap smear is a scree josse test desig macy to aid in the detec tion of sara ligna nt and malig nant condi tions of the uteri ne cervi x. It is not a diagn ostic proce dure and shoul d not be used as the sole means of detec ting cervi prasanth cance r. Both false -posi tive and false -nega tive repor ts do occur . Not Available [facility] ([facility]) [address], [place], [address], 03/05/2024 14:36:26 03/01/20 24 03/05/2024 IGP, APTIM A HPV, RFX 16/18 ,45 test methodology: Yessy t This liqui d based ThinP rep(R ) pap test was scree macy with the use of an image guide alivia vicente. Not Available [facility] ([facility]) [address], [place], [address], 03/05/2024 14:36:26 03/01/20 24 03/05/2024 IGP, APTIM A HPV, RFX 16/18 ,45 HPV genotype reflex Commen t Crite gudelia not met, HPV Genot ype not perfo rmed. Not Available [facility] ([facility]) [address] [place], [address], 03/05/2024 14:36:26 06/08/20 24 06/08/2024 Gluco se [Mass /volu me] in Blood glucose [mass/volume ] in blood 202 mg/dL low: 70mg/d Lhigh: 99mg/d L high GLUCO SE,BE DSIDE POCT 202 (H) 70 - 99 mg/dL 06/08 11:57 AM CDT [facility] Not Available Not Available 02/21/2025 13:18:02 06/08/20 24 06/08/2024 Gluco se [Mass /volu me] in Blood interpretati on and review of laboratory results Abnorm al Not Available Not Available 13:18:02 10/25/20 24 10/25/2024 Hemog lobin A1c/H emogl obin. total in Blood hemoglobin A1C/hemoglob in.total in blood 7.8 % low: 4%high : 6% abnormal HGB-A 1C 7.8 (A) 4 - 6 % Not Available Not Available 02/15/2025 09:10:37 10/25/20 24 10/25/2024 Hemog lobin A1c/H emogl obin. total in Blood interpretati on and review of laboratory results Abnorm al Not Available Not Available 09:10:37 11/22/19 25 11/23/2024 INTER PRETA TION: interpretati on: Commen t Not infec elida with HCV unles s early or acute infec tion is suspe cted (whic h may be delay ed in an immun ocomp romis ed indiv idual ), or other evide nce exist s to indic ate HCV infec tion. Not Available [facility] ([facility]) [address], [place], [address], 11/23/2024 07:37:47 11/22/19 25 11/23/2024 HCV ANTIB LINCOLN RFX TO QUANT PCR HCV Ab Non Reacti ve nonrea ctive Not Available [facility] ([facility]) [address], [place], [address], 11/23/2024 07:37:48 11/22/19 25 11/23/2024 HIV AB/P2 4 AG WITH REFLE X HIV Ab/P24 Ag screen Non Reacti ve nonrea ctive HIV-1 /HIV- 2 antib odies and HIV-1 p24 antig en were NOT detec elida. There is no labor atory evide nce of HIV infec tion. HIV Negat lucrecia Not Available [facility] ([facility]) [address], [place], [address], 11/23/2024 07:37:49 11/22/19 25 11/23/2024 LIPID PANEL cholesterol, total 194 mg/dL 100-19 9 Not Available [facility] ([facility]) [address] [place], [address], 11/23/2024 12:12:23 11/22/19 25 11/23/2024 LIPID PANEL triglyceride s 65 mg/dL 0-149 Not Available [facility] ([facility]) [address] [place], [address], 11/23/2024 12:12:23 11/22/19 25 11/23/2024 LIPID PANEL HDL cholesterol 85 mg/dL >39 Not Available [facility] ([facility]) [address] [place], [address], 11/23/2024 12:12:23 11/22/19 25 11/23/2024 LIPID PANEL VLDL cholesterol prasanth 12 mg/dL 5-40 Not Available [facility] ([facility] [address] [place], [address], 11/23/2024 12:12:23 11/22/19 25 11/23/2024 LIPID PANEL LDL chol calc ([facility]) 97 mg/dL 0-99 Not Available [facility] ([facility] [address] [place], [address], 11/23/2024 12:12:23 11/22/19 25 11/23/2024 COMP. METAB OLIC PANEL (14) glucose 90 mg/dL 70-99 Not Available [facility] ([facility]) [address] [place], [address], 11/23/2024 12:12:24 11/22/19 25 11/23/2024 COMP. METAB OLIC PANEL (14) BUN 17 mg/dL 6-24 Not Available [facility] ([facility]) [address] [place], [address], 11/23/2024 12:12:24 11/22/19 25 11/23/2024 COMP. METAB OLIC PANEL (14) creatinine 0.65 mg/dL 0.57-1 .00 Not Available [facility] ([facility]) [address], [address], 11/23/2024 12:12:24 11/22/19 25 11/23/2024 COMP. METAB OLIC PANEL (14) eGFR 108 mL/mi n/1.7 3 >59 Not Available [facility] ([facility]) [address], [address], 11/23/2024 12:12:24 11/22/19 25 11/23/2024 COMP. METAB OLIC PANEL (14) BUN/creatini ne ratio 26 9-23 above high normal Not Available [facility] ([facility]) [address], [place], [address], 11/23/2024 12:12:24 11/22/19 25 11/23/2024 COMP. METAB OLIC PANEL (14) sodium 141 mmol/ L 134-14 4 Not Available [facility] ([facility]) [address] [place], [address], 11/23/2024 12:12:24 11/22/19 25 11/23/2024 COMP. METAB OLIC PANEL (14) potassium 4.0 mmol/ L 3.5-5. 2 Not Available [facility] ([facility]) [address] [place], [address], 11/23/2024 12:12:24 11/22/19 25 11/23/2024 COMP. METAB OLIC PANEL (14) chloride 99 mmol/ L 96-106 Not Available [facility] ([facility]) [address] [place], [address], 11/23/2024 12:12:24 11/22/19 25 11/23/2024 COMP. METAB OLIC PANEL (14) carbon dioxide, total 28 mmol/ L 20-29 Not Available [facility] ([facility]) [address], [place], [address], 11/23/2024 12:12:24 11/22/19 25 11/23/2024 COMP. METAB OLIC PANEL (14) calcium 9.6 mg/dL 8.7-10 .2 Not Available [facility] ([facility]) [address], [place], [address], 11/23/2024 12:12:24 11/22/19 25 11/23/2024 COMP. METAB OLIC PANEL (14) protein, total 7.1 g/dL 6.0-8. 5 Not Available [facility] ([facility]) [address], [place], [address], 11/23/2024 12:12:24 11/22/19 25 11/23/2024 COMP. METAB OLIC PANEL (14) albumin 4.5 g/dL 3.9-4. 9 Not Available [facility] ([facility]) [address], [place], [address], 11/23/2024 12:12:24 11/22/19 25 11/23/2024 COMP. METAB OLIC PANEL (14) globulin, total 2.6 g/dL 1.5-4. 5 Not Available [facility] ([facility]) [address], [place], [address], 11/23/2024 12:12:24 11/22/19 25 11/23/2024 COMP. METAB OLIC PANEL (14) bilirubin, total 0.3 mg/dL 0.0-1. 2 Not Available [facility] ([facility]) [address], [address], 11/23/2024 12:12:24 11/22/19 25 11/23/2024 COMP. METAB OLIC PANEL (14) alkaline phosphatase 84 IU/L 44-121 Not Available [facility] [address], [place], [address], 11/23/2024 12:12:24 11/22/19 25 11/23/2024 COMP. METAB OLIC PANEL (14) AST (SGOT) 25 IU/L 0-40 Not Available [facility] ([facility]) [address], [place], [address], 11/23/2024 12:12:24 11/22/19 25 11/23/2024 COMP. METAB OLIC PANEL (14) ALT (SGPT) 23 IU/L 0-32 Not Available [facility] ([facility]) [address], [place], [address], 11/23/2024 12:12:24 11/22/19 25 11/23/2024 CBC, PLATE LET, NO DIFFE RENTI AL WBC 6.3 x10e3 /uL 3.4-10 .8 Not Available [facility] ([facility]) [address], [place], [address], 11/23/2024 12:12:26 11/22/19 25 11/23/2024 CBC, PLATE LET, NO DIFFE RENTI AL RBC 4.12 x10e6 /uL 3.77-5 .28 Not Available [facility] ([facility]) [address], [place], [address], 11/23/2024 12:12:26 11/22/19 25 11/23/2024 CBC, PLATE LET, NO DIFFE RENTI AL hemoglobin 12.6 g/dL 11.1-1 5.9 Not Available [facility] ([facility]) [address], [place], [address], 11/23/2024 12:12:26 11/22/19 25 11/23/2024 CBC, PLATE LET, NO DIFFE RENTI AL hematocrit 39.9 % 34.0-4 6.6 Not Available [facility] ([facility]) [address], [place], [address], 11/23/2024 12:12:26 11/22/1911/23/2024 CBC, PLATE LET, NO DIFFE RENTI AL MCV 97 fL 79-97 Not Available [facility] ([facility]) [address], [place], [address], 11/23/2024 12:12:26 11/22/19 25 11/23/2024 CBC, PLATE LET, NO DIFFE RENTI AL MCH 30.6 pg 26.6-3 3.0 Not Available [facility] ([facility]) [address], [place], [address], 11/23/2024 12:12:26 11/22/19 25 11/23/2024 CBC, PLATE LET, NO DIFFE RENTI AL MCHC 31.6 g/dL 31.5-3 5.7 Not Available [facility] ([facility]) [address], [place], [address], 11/23/2024 12:12:26 11/22/19 25 11/23/2024 CBC, PLATE LET, NO DIFFE RENTI AL RDW 12.2 % 11.7-1 5.4 Not Available [facility] ([facility]) [address], [place], [address], 11/23/2024 12:12:26 11/22/19 25 11/23/2024 CBC, PLATE LET, NO DIFFE RENTI AL platelets 371 x10e3 /uL 150-45 0 Not Available [facility] ([facility]) [address], [place], [address], 11/23/2024 12:12:26 11/22/19 25 11/23/2024 ALBUM IN/CR EAT RATIO , RANDO M UR creatinine, urine 74.7 mg/dL notest ab. Not Available [facility] ([facility]) [address], [place], [address], 11/23/2024 12:12:29 11/22/19 25 11/23/2024 ALBUM IN/CR EAT RATIO , KARLENE Vicente UR albumin, urine 4.2 ug/mL notest ab. Not Available [facility] ([facility]) [address] [place], [address], 11/23/2024 12:12:29 11/22/19 25 11/23/2024 ALBUM IN/CR EAT RATIO , RANDO M UR alb/creat ratio 6 mg/g_ creat 0-29 Sabina l: 0 - 29 Moder ately incre ased: 30 - 300 Sever phu incre ased: >300 Not Available [facility] ([facility]) [address] [place], [address], 11/23/2024 12:12:29 11/22/19 25 11/23/2024 TSH RFX ON ABNOR MAL TO FREE T4 TSH 3.260 uIU/m L 0.450- 4.500 Not Available [facility] ([facility]) [address] [place], [address], 11/23/2024 12:12:31 11/22/19 25 11/23/2024 HEMOG LOBIN A1C hemoglobin A1C 8.3 % 4.8-5. 6 above high normal Predi abete s: 5.7 - 6.4 Diabe marty: >6.4 Glyce kika contr ol for adult s with diabe marty: <7.0 Not Available [facility] ([facility]) [address] [place], [address], 11/23/2024 12:12:32 03/01/20 25 03/02/2025 MEASL ES/MU MPS/R UBELL A IMMUN ITY rubella antibodies, IgG 20.10 index immune >0.99 Non-i mmune <0.90 Equiv ocal 0.90 - 0.99 Immun e >0.99 Not Available [facility] ([facility]) [address] [place], [address], 03/02/2025 09:36:16 03/01/2003/02/2025 MEASL ES/MU MPS/R UBELL A IMMUN ITY measles antibodies, IgG 140.0 AU/mL immune >16.4 Negat lucrecia <13.5 Equiv ocal 13.5 - 16.4 Posit lucrecia >16.4 Prese nce of antib odies to Rubeo la is presu mptiv e evide nce of immun ity excep t when acute infec tion is suspe cted. Not Available [facility] ([facility]) [address], [place], [address], 03/02/2025 09:36:16 03/01/2003/02/2025 MEASL ES/MU MPS/R UBELL A IMMUN ITY mumps abs, IgG 207.0 AU/mL immune >10.9 Negat lucrecia <9.0 Equiv ocal 9.0 - 10.9 Posit lucrecia >10.9 A posit lucrecia resul t gener ally indic ates past expos ure to Mumps virus or previ ous vacci natio n. Not Available [facility] ([facility]) [address], [place], [address], 03/02/2025 09:36:16 03/01/2003/02/2025 VARIC RAJINDER- ZOSTE R V AB, IGG varicella zoster IgG REACTI VE nonrea ctive Ple ase note refer ence inter elizabeth avelar e A React lucrecia resul t is consi dered evide nce of immun ity to VZV. React lucrecia indic ates that VZV IgG was detec elida consi stent with previ ous infec tion and/o r vacci natio n. A Non React lucrecia resul t indic ates that VZV IgG was not detec elida sugge sting that immun ity has not been acqui red. Not Available [facility] ([facility]) [address], [place], [address], 03/02/2025 09:36:17 03/01/2003/02/2025 QUANT IFERO N-TB GOLD PLUS quantiferon incubation INCUBA TION PERFOR MED. Not Available [facility] ([facility]) [address], [place], [address], 03/05/2025 14:28:17 03/01/2003/02/2025 QUANT IFERO N-TB GOLD PLUS quantiferon criteria COMMEN T Quant iFERO N-TB Gold Plus is a quali tativ e indir ect test for M tuber culos is infec tion (incl uding disea se) and is inten ded for use in conju nctio n with risk asses sment , radio graph y, and other medic al and diagn ostic evalu ation s. The Quant iFERO N-TB Gold Plus resul t is deter mined by subtr actin g the Nil value from eithe r TB antig en (Ag) value . The Mitog en tube serve s as a contr ol for the test. Not Available [facility] ([facility]) [address] [address], [place], [address], 03/05/2025 14:28:17 03/01/2003/05/2025 QUANT IFERO N-TB GOLD PLUS quantiferon- TB gold plus NEGATI VE negati ve No respo nse to M tuber culos is antig ens detec elida. Infec tion with M tuber culos is is unlik phu, but high risk indiv idual s shoul d be consi dered for addit ional testi ng (ATS/ IDSA/ CDC Clini prasanth Pract ice Guide lines , 2017) . The refer ence range is an Antig en minus Nil resul t of <0.35 IU/mL . Chemi lumin escen ce immun oassa y metho dolog y Not Available [facility] ([facility]) [address], [place], [address], 03/05/2025 14:28:17 03/01/2003/05/2025 QUANT IFERO N-TB GOLD PLUS quantiferon TB1 Ag value 0.02 IU/mL Not Available [facility] ([facility]) [address] [place], [address], 03/05/2025 14:28:17 03/01/20 25 03/05/2025 QUANT IFERO N-TB GOLD PLUS quantiferon TB2 Ag value 0.04 IU/mL Not Available [facility] ([facility]) [address] [place], [address], 03/05/2025 14:28:17 03/01/20 25 03/05/2025 QUANT IFERO N-TB GOLD PLUS quantiferon nil value 0.02 IU/mL Not Available [facility] ([facility] [address] [place], [address], 03/05/2025 14:28:17 03/01/20 25 03/05/2025 QUANT IFERO N-TB GOLD PLUS quantiferon mitogen value 7.02 IU/mL Not Available [facility] ([facility]) [address] [place], [address], 03/05/2025 14:28:17 Result Notes None recorded. Problems Name Problem SNOMED Code Status Onset Date Resolution Date Notes Provider Name and Address Organization Details Recorded Time Neuropathy due to diabetes mellitus 648326369 Active 020 Radha Lisa APN, FNP-C Attn: Erick yost,[address] [place], [address], [facility] 5 11:24:49 Type 1 diabetes mellitus [id number] Active 020 Radha Lisa APN, FNP-C Attn: Erick yost,[address] [place], [address], [facility] 5 11:24:49 Tobacco user [id number] Active 020 Radha Lisa APN, FNP-C Attn: Erick yost,[address] [place], [address], [facility] 5 11:24:49 Pain of multiple joints 16360257 Active 020 Radha Lisa APN, [employer] SERV[employer] AIDE-C Attn: Erick ritika,[address] [facility], [place], [address], [facility] 5 11:24:49 Anti-nuclear factor detected [id number] Active 020 Radha Lisa APN, WELFARE SERVICE AIDE-C Attn: Tiffaneisadie yost,[address] [facility], [place], [address], [facility] 5 11:24:49 Problem Notes None recorded. Procedures Surgical History Date Name Laterality Status Provider Name and Address Organization Details Recorded Time 06/08/20 24 colonoscopy completed GABRIELA Gotti [facility] 11/22/2024 11:14:25 delivery completed Lucero Burnett [facility] 09/11/2020 15:32:14 Carpal tunnel surgery completed Lucero Burnett [facility] 09/11/2020 15:32:35 Cholecystectomy completed Lucero Burnett [facility] 09/11/2020 15:32:42 release of trigger finger completed Lucero Burnett MA [facility] 09/11/2020 15:32:53 Imaging Results None recorded. Procedure Notes None recorded. Medical Equipment None Reported. Allergies Allergen ID Allergen Name Allergen Category Reaction Reaction Severity Criticality Documentation Date Start Date Code Code System Note Provider Name and Address Organization Details Recorded Time 332015 hydrocodo ne Not available palpitati ons mild Not available 09/11/20202019 5489 RxNorm Radha Lisa APN, [employer] AIDE-C Attn: Erick ritika,[address] [facility], [place], [address], [facility] [place] 11:23:48 [id number] ibuprofen medicatio n Not available Not available Not available 09/11/20202019 5640 RxNorm Other react ions and sever ities : 'Swel ling - Moder ate'. Radha Lisa APN, WELFARE SERVICE AIDE-C Attn: Accountin g,[address] [facility], [place], [address] 5 11:23:48 [id number] Product containin g penicilli n (product) medicatio n tachycard ia Not available Not available 06/23/2023 67540 8001 SNOMED Ursula Montes null, [place] - [facility] 3 09:33:55 [id number] cephalexi n medicatio n other Not available unabletoasse ss 11/29/20242024 2231 RxNorm pt repor elida ma and yobani Rabago LPN null, [facility] 5 17:19:39 Medications Name Sig Start Date Stop Date Status Note LastModified by Organization Details LastModified Time Prescript ion - Prior Authoriza tion Request 01/11 completed Not Available Not Available Not Available clindamyc in HCl 300 mg capsule TAKE 1 CAPSULE BY MOUTH EVERY 6 HOURS FOR 7 DAYS 03/11 completed Not Available Not Available Not Available azithromy ky 250 mg tablet TAKE 2 TABLETS (500 MG) BY ORAL ROUTE ONCE DAILY FOR 1 DAY THEN 1 TABLET (250 MG) BY ORAL ROUTE ONCE DAILY FOR 4 DAYS 06/24 completed Not Available Not Available Not Available Lidocaine Viscous 2 % mucosal solution APPLY 1 APPLICAT ION TO AFFECTED MUCOSAL AREA TWICE DAILY NEEDED PAIN FOR 3 DAYS 11/22 completed Not Available Not Available Not Available fluconazo le 150 mg tablet TAKE 1 TABLET BY MOUTH 1 TIME 06/23 completed Not Available Not Available Not Available Lantus U-100 Insulin 100 unit/mL subcutane ous solution 01/11 completed Not Available Not Available Not Available penicilli n V potassium 500 mg tablet TAKE 1 TABLET BY MOUTH EVERY 6 HOURS FOR 10 DAYS 06/23 completed Not Available Not Available Not Available metronida zole 500 mg tablet TAKE 1 TABLET BY MOUTH EVERY 12 HOURS 06/23 completed Not Available Not Available Not Available sulfameth oxazole 800 mg-trimet hoprim 160 mg tablet TAKE 1 TABLET BY MOUTH EVERY 12 HOURS FOR 7 DAYS 06/23 completed Not Available Not Available Not Available tramadol 50 mg tablet 06/24 completed Not Available Not Available Not Available amoxicill in 500 mg tablet 06/23 completed Not Available Not Available Not Available ofloxacin 0.3 % ear drops INSTILL 10 DROPS INTO EACH EAR DAILY FOR 7 DAYS 06/23 completed Not Available Not Available Not Available amoxicill in 875 mg tablet 09/11 completed Not Available Not Available Not Available methotrex ate sodium 2.5 mg tablet 11/22 completed Not Available Not Available Not Available NXETouch Ultra Test strips TEST FOUR TIMES DAILY DIRECTED active Not Available Not Available No t Available benzonata te 100 mg capsule TK 1 C PO TID PRN 06/24 completed Not Available Not Available Not Available cephalexi n 500 mg capsule TAKE 1 CAPSULE BY MOUTH EVERY 6 HOURS FOR 7 DAYS 03/11 completed Not Available Not Available Not Available gabapenti n 300 mg capsule 09/11 completed ER, pt states she d/c due to dizzines s and difficul ty concentr ating. Not Available Not Available Not Available folic acid 1 mg tablet TAKE 1 TABLET BY MOUTH DAILY active Not Available Not Available No t Available gabapenti n 100 mg capsule TAKE 2 CAPSULES BY MOUTH THREE TIMES DAILY active PRN Not Available Not Available No t Available estradiol 0.01% (0.1 mg/gram) vaginal cream Insert 2g vaginall y every night for 14 nights, then insert 1g vaginall y three times weekly (M, W, F) for maintena nce dose. 11/22 completed Not Available Not Available Not Available albuterol sulfate HFA 90 mcg/actua tion aerosol inhaler TAKE 2 PUFFS BY INHALATI ON EVERY 6 HOURS NEEDED FOR COUGH 01/11 completed Not Available Not Available Not Available ondansetr on 4 mg disintegr ating tablet PLACE 1 TABLET ON TOP OF TONGUE AND LET DISSOLVE EVERY 8 HOURS NEEDED FOR NAUSEA 01/11 completed Not Available Not Available Not Available neomycin- polymyxin -hydrocor t 3.5 mg-10,000 unit/mL-1 % ear drops,adam p 10/10 completed Not Available Not Available Not Available insulin lispro (U-100) 100 unit/mL subcutane ous pen Inject by SQ route three times daily with meals:1 unit per 10 grams of carbohyd rates plus correcti ve dosing of 1 unit for every 50 mg/dl over 150 mg/dl, max dose 14 units active Not Available Not Available No t Available Lantus Solostar U-100 Insulin 100 unit/mL (3 mL) subcutane ous pen ADMINIST ER 9 UNITS UNDER THE SKIN TWICE DAILY - USE IF INSULIN PUMP DOES NOT WORK 03/11 completed Not Available Not Available Not Available Humalog Mix for every 10 grams of carbs 1 unit 10/10 completed pt is on generic Not Available Not Available Not Available TRUEplus Pen Needle 31 gauge x 5/16 USE TO INJECT THREE TIMES DAILY DIRECTED active Not Available Not Available No t Available TRUEplus Pen Needle 32 gauge x 5/32 active Not Available Not Available Not Available OneToUpMo Ultra Blue Test Strip USE TO TEST FIVE TIMES DAILY 06/23 completed Not Available Not Available Not Available FreeStyle Snehal 2 Sensor kit CHANGE EVERY 14 DAYS DIRECTED active Not Available Not Available No t Available Dexcom G7 Log Buyer CHECK BLOOD GLUCOSE BEFORE EACH MEAL AND AT BEDTIME active Not Available Not Available No t Available Dexcom G7 Sensor device CHANGE EVERY 10 DAYS active Not Available Not Available No t Available Vitals Date Recorded Body height Body mass index (BMI) Body weight Oxygen saturation Oxygen saturation in Arterial blood by Pulse oximetry Respiratory rate Body temperature Heart rate Systolic And Diastolic Provider Name and Address Organization Details Last Updated DateTime 5 162.56 cm 23.9 kg/m2 41163.3 4 g 98 % 98 % 16 /min 97.5 [degF] 82 /min 120/68 mm[Hg] Ursula Montes [facility] 5 11:16:26 Date Recorded Body height Body mass index (BMI) Body weight Oxygen saturation Oxygen saturation in Arterial blood by Pulse oximetry Heart rate Respiratory rate Body temperature Systolic And Diastolic Provider Name and Address Organization Details Last Updated DateTime 4 162.56 cm 22.7 kg/m2 45151.1 9 g 96 % 96 % 108 /min 16 /min 97.3 [degF] 128/72 mm[Hg] Ursula Montes [facility] 4 10:24:50 Date Recorded Body height Body mass index (BMI) Body weight Oxygen saturation Oxygen saturation in Arterial blood by Pulse oximetry Heart rate Body temperature Systolic And Diastolic Provider Name and Address Organization Details Last Updated DateTime 4 162.56 cm 23.5 kg/m2 75649.1 5 g 98 % 98 % 78 /min 97.6 [degF] 108/72 mm[Hg] Eugenia Blanca MA [facility] 4 14:00:48 Date Recorded Body height Body mass index (BMI) Body weight Oxygen saturation Oxygen saturation in Arterial blood by Pulse oximetry Heart rate Respiratory rate Body temperature Systolic And Diastolic Provider Name and Address Organization Details Last Updated DateTime 5 162.56 cm 24.8 kg/m2 22836.8 2 g 98 % 98 % 90 /min 16 /min 98 [degF] 127/77 mm[Hg] Annalise Lentz MA [facility] 5 09:49:23 Date Recorded Systolic And Diastolic Provider Name and Address Organization Details Last Updated DateTime 06/23/2023 142/80 mm[Hg] Radha Lisa APN, GAYEC Attn: Accounting[address] [place], [address], [facility] 06/23/2023 09:50:19 Date Recorded Body weight Body mass index (BMI) Body height Oxygen saturation Oxygen saturation in Arterial blood by Pulse oximetry Heart rate Respiratory rate Body temperature Systolic And Diastolic Provider Name and Address Organization Details Last Updated DateTime 3 29294.6 g 22.5 kg/m2 162.56 cm 98 % 98 % 96 /min 16 /min 98.2 [degF] 166/72 mm[Hg] Ursula Montes [facility] 3 09:41:43 Social History Question Answer Notes LastModified by Organizat ion Details LastModified Time Tobacco Smoking Status Former Smoker quit 10/2023 GABRIELA Gotti null, [facility] 01/12/2024 10:21:45 Do You Have An Advance Directive? No Information not available 09/11/2020 Are You Blind Or Do You Have Difficulty Seeing? No Information not available 06/24/2021 What Is Your Level Of Caffeine Consumption? Moderate Information not available 09/11/2020 How Much Tobacco Do You Chew? None Information not available 09/11/2020 In The 14 Days Before Symptom Onset, Have You Had Close Contact With A Laboratory-confi rmed COVID-19 While That Case Was Ill? No Information not available 09/11/2020 In The 14 Days Before Symptom Onset, Have You Had Close Contact With A Person Who Is Under Investigation For COVID-19 While That Person Was Ill? No Information not available 09/11/2020 Have You Been To An Area Known To Be High Risk For COVID-19? No Information not available 09/11/2020 Are You Deaf Or Do You Have Serious Difficulty Hearing? No Information not available 06/24/2021 What Type Of Diet Are You Following? DIABETIC Bigger Portions Information not available 11/22/2024 Which Illicit Or Recreational Drugs Have You Used? Marijuana Anxiety And Menopause Information not available 09/11/2020 Are There Any Guns Present In Your Home? No Information not available 09/11/2020 Hard Of Hearing Or Deaf In One Or Both Ears? No Information not available 09/11/2020 Legally Blind In One Or Both Eyes? No Information not available 09/11/2020 Marital Status Informatio n not available 09/11/2020 What Was The Date Of Your Most Recent Tobacco Screening? 03/11/2025 Information not available 03/11/2025 How Many Children Do You Have? 1 Information not available 06/24/2021 Performs Monthly Self-breast Exam? No Information not available 09/11/2020 Do You Use Protection During Sex? No Information not available 06/24/2021 What Is Your Relationship Status? Information not available 06/24/2021 Do You Use Your Seat Belt Or Car Seat Routinely? Yes Information not available 06/24/2021 Seat Belts Used Routinely Yes Information not available 09/11/2020 Are You Sexually Active? Yes Information not available 06/24/2021 Smoke Alarm In Home Yes Information not available 09/11/2020 Do You Have Smoke And Carbon Monoxide Detectors In Your Home? Yes Information not available 06/24/2021 At What Age Did You Start Smoking Tobacco? 35 Information not available 09/11/2020 Are You Passively Exposed To Smoke? Yes Information not available 06/24/2021 How Much Tobacco Do You Smoke? 0.25 PPD 6 Cigs A Day. [email or web address] Information not available 06/23/2023 General Stress Level Low Information not available 09/11/2020 Do You Use Sunscreen Routinely? Yes Information not available 09/11/2020 Has Tobacco Cessation Counseling Been Provided? Yes Information not available 06/23/2023 On What Date Was Tobacco Cessation Counseling Provided? 03/11/2025 Information not available 03/11/2025 How Many Years Have You Smoked Tobacco? 12 06/23/23 [email or web address] Information not available 06/23/2023 How Many Years Have You Used E-cigarettes Or Vape? 2024 Information not available 11/22/2024 Sex: Female Functional Status Question Answer Note LastModified by Organization Details LastModified Time Do you use any illicit or recreational drugs? Yes aline [email or web address] Information not available 06/23/2023 Do you or have you ever used any other forms of tobacco or nicotine? No Information not available 06/24/2021 What is your level of alcohol consumption? Occasional Information not available 09/11/2020 Do you or have you ever used smokeless tobacco? Never used smokeless tobacco Information not available 09/11/2020 Are you currently employed? Yes Information not available 03/11/2025 Are you able to care for yourself? 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 Current user of electronic cigarettes occasionally vapes Information not available 03/11/2025 What is your exercise level? Moderate Information not available 03/11/2025 Mental Status Question Answer Note LastModified by Organization D etails LastModified Time Do you feel stressed (tense, restless, nervous, or anxious, or unable to sleep at night)? [id number] Information not available 03/11/2025 Family History Relationship Description Onset Age of this Age Resolved Age Notes LastModified by Organization Details LastModified Time Maternal Grandfather Diabetes mellitus [email or web address] Not available 2019 15:33:06 Maternal Grandfather Myocardial infarction [email or web address] Not available 09/11 15:34:12 Paternal Grandfather Depressive disorder [email or web address] Not available 2019 15:33:45 Paternal Grandfather Myocardial infarction rreiterma Not available 09/11 15:34:06 Brother Diabetes mellitus [email or web address] Not available 2019 15:34:23 Mother Malignant neoplasm of skin [email or web address] Not available 06/23 09:36:07 Medical History Condition Response Coronary Artery Disease N Other N Atrial Fibrillation N High Blood Pressure N Thyroid Problems N Kidney or Bladder Problems N Depression N COPD N Blood Clots N GI Problems N Skin Problems N Eating Disorder N Anemia N Heart Attack (AL) N Diabetes Y Anxiety Disorder Y Muscle, Joint, or Bone Problems N Seizures/Epilepsy N Acid Reflux (GERD) N Cancer N Stroke N Allergies Y Asthma N ADHD N Substance Abuse N High Cholesterol N Hepatitis N Liver Disease N Schizophrenia N Headaches N Osteoporosis N Heart Failure N Gynecological History Statement/Question Response Age at Menarche 14 Current Control Method Menopause Age at First Child 22 Obstetrics History GPAL:G 1 P 1 0 0 1 Type Value Full Term 1 Induced 0 Spontaneous 0 Living 1 Total 1 Immunizations Vaccine Type Date Status Note Provider Nam e and Address Organization Details Recorded Time Tdap 03/11/2025 completed Annalise Lentz MA [place] - [facility] 03/11/2025 11:34:09 Past Encounters Encounter ID Performer Location Encounter Start Date Encounter Closed Date Diagnosis/Indication Diagnosis SNOMED-CT Code Diagnosis ICD10 Code Diagnosis Note [id number] MD [facility] (Adult Med) [address] [place] [address] 09/11/2020 09:09:20 09/12/2020 08:33:08 Adult health examination 292847298 Z00.01 Encouraged routine [employer] CLE[employer]ER, vision, dental exams, well balanced diet. Type 1 lucita betes mellitus 73608062 E10.9 lantus 17 u q hsHumalog 1 unit for every 10 grams, andcorrect lucrecia dosing- gives 1 unit for every 50 over 150 based on bs readingsus es one touch ultra meterhas not had endocrine in a while Neuropathy due to diabetes mellitus 736016402 E13.42 dwp starting lower dose of gabapentin and will also refer to podiatry Tobacco user 484001468 Z 72.0 Smoking cessation encouraged . Pain of mu ltiple joints 97521765 M25.50 pain in todd hands and feet, knees; mother has RA, dwp will check labs as well [id number] MD Adrián Arriaga (Adult Med) [address] [place] [address] 10/10/2020 08:22:36 10/13/2020 11:52:07 Upper respiratory infection 79467018 J06.9 over two weeks of bronchial cough, now moving phlegm, will send zpack and tessalon perlesdwp to increase fluids, OTC cold med prn, rest, good handwashin g Dyspnea 676364315 R06.00 prn albuterol Vaginal discharge 654817 006 N89.8 increased sugars since being sick, vaginal itching, dwp antifungal , increase fluids [id number] Radha Lisa APN, WELFARE SERVICE AIDE-C [facility] (Adult Med) [address] [place] [address] 06/24/2021 13:41:39 06/29/2021 13:35:47 Candidiasis of vagina 50225769 B37.3 prone to yeast infections with abx use Fever 723001809 R50.9 advised pt to get covid test and follow cdc precaution s Dysuria 60840125 R30.9 will treat for bacterial infection, will need culture if not improving Type 1 lucita betes mellitus 03075776 E10.9 lantus 17 u q hsHumalog 1 unit for every 10 grams, andcorrect lucrecia dosing- gives 1 unit for every 50 over 150 based on bs readings Order: Inject by SQ route three times daily with meals: 1 unit per 10 grams of carbohydra marty plus corrective dosing of 1 unit for every 50 mg/dl over 150 mg/dl, max dose 14 units uses one touch ultra meterhas not had endocrine in a while, will refer to endocrine and podiatry [id number] MD Adrián Arriaga (Adult Med) [address] [place] [address] 06/23/2023 09:17:47 06/28/2023 11:59:35 Adult health examination 883257043 Z00.01 Encouraged routine [employer], vision, dental exams, well balanced diet. Type 1 lucita betes mellitus 56953972 E10.9 since age 15 lantus 17 u q hsHumalog 1 unit for every 10 grams, andcorrect lucrecia dosing- gives 1 unit for every 50 over 150 based on bs readings Order: Inject by SQ route three times daily with meals: 1 unit per 10 grams of carbohydra marty plus corrective dosing of 1 unit for every 50 mg/dl over 150 mg/dl, max dose 14 units uses one touch ultra meterrefer to podiatry Neuropathy due to diabetes mellitus 325659893 E13.42 dwp starting lower dose of gabapentin and will also refer to podiatry Pain of mu ltiple joints 10254056 M25.50 pain in todd hands and feet, knees; mother has RA, dwp will check labs as well Tobacco user 198448950 Z 72.0 Smoking cessation encouraged . Anti-nucle ar factor detected 919638877 R76.8 will get new testing Feeling stressed 2875424 06 Z73.3 not working Altered oscar wel function 01010563 R19.4 varies from constipati on and diarrhea, hx of gallbladde r removed, no prior scope, will refer to GI,advised diet/sympt om log [id number] MD Adrián Arriaga (Adult Med) [address] [place] [address] 01/12/2024 10:09:53 01/17/2024 16:07:56 Type 1 diabetes mellitus 18632441 E10.9 since age 15Cont with endocrineu ses one touch ultra meterrefer to podiatry Neuropathy due to diabetes mellitus 446401703 E13.42 dwp starting lower dose of gabapentin and will also refer to podiatry Altered oscar wel function 98531944 R19.4 varies from constipati on and diarrhea, hx of gallbladde r removed, no prior scope, will refer to GI,advised diet/sympt om log Fall 5134044 W19.XXXA fell on buttocks recently hx of tailbone fx years ago, feels the same, sitting on pillow,adv ised pt to call if not improving [id number] MD Adrián WHITAKER (DIRECTOR OF STRATEGIC MARKETING) [address] [place] [address] 03/01/2024 13:37:53 03/05/2024 12:14:16 Routine gynecologic examination done 3905136920 9101 Z01.419 - Reviewed risks for infection and cancer; ordered screening tests as appropriat e Screening for malignant neoplasm of cervix 334494610 Z12.4 - Due for co-testing ; collected today Screening for malignant neoplasm of breast 085080469 Z12.31 - Due for screening mammogram; ordered today HIV screening 879655769 Z11.4 - Once in lifetime screening per USPSTF recommenda tions Hepatitis C screening 41 0448335 Z11.59 - Once in lifetime screening per USPSTF recommenda tions Pruritus of vagina 21550 003 L29.3 - f/u NuSwab; will treat as indicated by results Atrophic vaginitis 68058 000 N95.2 - Exam as well as history of vaginal dryness with superficia l dyspareuni a concerning for atrophic vaginitis in setting of menopause- Will treat with vaginal estrogen - 2g nightly x2 weeks, then 1g M/W/F thereafter - RTC as needed if symptoms not adequately controlled with vaginal estrogen alone [id number] MD Adrián Arriaga (Adult Med) [address] [place] [address] 11/22/2024 11:03:17 11/26/2024 13:13:26 Adult health examination 918644457 Z00.01 Encouraged routine [employer] CLE[employer]ER, vision, dental exams, well balanced diet. Type 1 lucita betes mellitus 47145965 E10.9 since age 15Cont with endocrineu ses one touch ultra metersees podiatry Tobacco user 063439458 Z 72.0 Smoking cessation encouraged . Infection of tooth 88609 8007 K04.7 bottom molars, will send abx, dwp dental options [id number] MD Adrián Arriaga (Adult Med) [address] [place] [address] 03/11/2025 09:24:36 03/12/2025 09:50:18 Requires diphtheria, tetanus and pertussis vaccination 062795148 Z23 cdc handout provided Health exa mination of sub-group 852130530 Z02.89 form completed Type 1 lucita betkali mellitus 83841677 E10.9 since age 15Cont with endocrine- Sees Dr Balderrama, has apt next week;uses one touch ultra metersees podiatry Health Concerns Section Related Observation LastModified by Organization Detai ls LastModified Time None Recorded Concern Status LastModified by Organization Details LastModified Time None Recorded Advance Directives Directive N: Payers Insurance Date Sequence Insurance Name Policy Number Policy De La Cruz Covered Member ID De La Cruz Member ID Guarantor Name 03/11/2025 1 [facility] (MEDICAID REPLACEMENT - HMO) [id number] Eugenia Hopson [id number] Eugenia Holland 03/11/2025 1 [place] Eugenia Hopson [id number] Eugenia Holland 10/09/2020 2 *SELF PAY* Stone Holland 06/23/2023 SLIDING FEE SCHEDULE - DISCOUNT Eugenia Holland Notes Date Note Type Note Provider Name and Address Organization Details Recorded Time 06/23/2023 text/html pt was having transportation issues.have never seen in person here, has only done phone visits during covidstomach issues- states an hour after she eats she gets very bloating and has diarrhea. started 2 months ago. states she has a lot cramping and pressure when she lays down. Has constipation often as well. Did go to in April for Gi issues, has never had scope Sees Endo in Sep.pt states shes been very stressed with life- has not worked in 2 years Radha Lisa APN, WELFARE SERVICE AIDE-C Attn: Accounting[address] [facility], [place], [address], [facility] 06/23/2023 14:21:21 01/12/2024 text/html ER f/u from 10/08 023. and her had the flu which make pt SOB. Given breathing treatments and given albuterol inhaler.Never made apt with gastro- unsure if referral is still valid.fell recently, hx of broken tailbone, sitting on pillow helping HX:pt was having transportation issues.have never seen in person here, has only done phone visits during covidstomach issues- states an hour after she eats she gets very bloating and has diarrhea. started 2 months ago. states she has a lot cramping and pressure when she lays down. Has constipation often as well. Did go to in April for Gi issues, has never had scope Sees Endo in Sep.pt states shes been very stressed with life- has not worked in 2 years Radha Lisa APN, WELFARE SERVICE AIDE-C Attn: Accounting, [address] [facility], [place], [address], [place] - [facility] 01/12/2024 10:52:11 03/01/2024 text/html Annual well [facility] n- PCP: JULIA Mascorro Concerns today- Has a bump on the left side of groin. Not irritated or painful.- Has some vaginal itching- Has superficial dyspareunia and vaginal dryness Infection risk- Prior testing for HIV? Never tested- Prior testing for HepC? Never tested- History of STIs? No- Currently having unprotected sex? With spouse for 13 years- Vaccines due? Tdap, COVID, flu Plans for - Menopause about 7-8 years ago Cancer screenings- Breast cancer: No known FHx.- Cervical cancer: Denies history of abnormal Pap.- Colon cancer: No known FHx.- Lung cancer: Former smoker, quit 10/2023 (age 48). RANJANA JORDAN MD Attn: Accounting[address] [facility], [place], [address], [place] - [facility] 03/01/2024 16:25:25 11/22/2024 text/html here for annual exam,currently looking for dental insurance. pt has been having a lot of teeth pain. requesting abx. Radha Lisa APN, WELFARE SERVICE AIDE-C Attn: Accounting[address] [facility], [place], [address], [place] - [facility] 11/22/2024 11:39:20 03/11/2025 text/html Patient is here for a work physical, no complaints today,Needs Tdap, has records from [facility] with Endocrine for type 1 diabetes, had appointment for tomorrow but had to reschedule for next week Radha Lisa APN, JULIA-C Attn: Accounting[address] , [place], [address], [place] - [facility] 03/11/2025 10:22:44 OBGyn Episode Ob Episode Information Episode Created Date Number of Fetuses Patient Bloodtype Patient rh Status Prepregnancy Weight lbs Domestic Partner Domestic Partner Phone Father Name J[employer] Servicer Status 09/11/20 20 1 CLOSED Fetus Data First Name Last Name Admitted to NICU Weight (g) Sex Living Outcome Pediatric Complications Fetus ID Race Codes Race Delivery Type M Full Term [id number] Reuben Calculation Initial Reuben Date Initial Exam Date Initial Exam Provider Initial Ultrasound Date Last Menstrual Period Date Ultra Sound Weeks Gestation 0 Eighteen To Twenty Week Reuben Update Ultra Sound Date Fundal Height At Umbil Quickening Date Ultra Sound Latest Weeks Gestation Final Reuben Confirmed By Final Reuben Confirmed Date Final Reuben Date Ultra Sound Latest Days Gestation 0 0 Menstrual History Last Menstrual Date Menses Monthly On Bcp Conception Prior Menses Frequency Hcg Plus Date Menarche Onset Age Delivery Information Delivery Date Delivery Type Labor Anesthesia Weeks Gestation Incision Type Labor Labor Length Hrs Delivered By Post Complications Tubal Sterilization Discharge Date Comments 7 Discharge Information Feeding Method Contraceptive Method Maternal HG B and HCT Levels
--- OUTSIDE RECORDS SUMMARY | 2025-05-26 11:35 | XMS_ITS | Clinical Summary ---
Author Organization [facility] Address [address] [facility] [address] [place] [address] Phone Care Team Providers Care Anesthesiology Fellow Name Role Phone Radha Lisa APRN, BLACK TOP PAVER OPERATOR Primary Care Provider [phone] Nick Balderrama MD Unavailable Eugenia Roger APRN, BLACK TOP PAVER OPERATOR Unavailable Allergies Active Allergy Reactions Criticality Noted Date Comments Hydrocodone Palpitations Low 03/27/2020 Ibuprofen Swelling Medium 03/27/2020 Latex Rash 06/01/2024 Penicillin V Potassium Other (see Comments) Medications gabapentin (NEURONTIN) 300 MG Capsule Take 300 mg by mouth 2 times daily. 0 Active meclizine (ANTIVERT) 25 MG Tablet Take 12.5 mg by mouth. 0 Active oxyCODONE-acetam inophen (PERCOCET) 5-325 MG Tablet Take 1 Tablet by mouth. 0 Active traMADol (ULTRAM) 50 MG Tablet Take 50 mg by mouth. 0 Active OneTouch Ultra Strip 4 times a day 400 Each 3 3 Active ondansetron (ZOFRAN-ODT) 4 MG TABLET DISPERSIBLE Take 1 Tablet by mouth every 8 hours as needed for Nausea - 1st line. 20 Tablet 3 Active albuterol 108 (90 Base) MCG/ACT Aerosol Solution take 2 Puffs by inhalation every 6 hours as needed for Cough. 18 g 3 Active Continuous Glucose Energy Projects Lead (Dexcom G7 Energy Projects Lead) Device Check blood glucose before each meal and at bedtime 1 Each 4 Active methotrexate 2.5 MG Tablet once a week 5 tabs 4 Active folic acid (FOLVITE) 1 MG Tablet Take 1,000 mcg by mouth daily. 4 Active insulin glargine (Lantus SoloStar) 100 UNIT/ML Solution Pen-injector 9 units twice a day if insulin pump doesn't work 15 mL 1 4 Active Insulin Lispro, 1 Unit Dial, 100 UNIT/ML Solution Pen-injector Per insulin pump settings, up to 50 units/day 45 mL 1 4 Active Insulin Pen Needle (Pen Raleigh) 32G X 4 MM Misc Up to 4 times a day 100 Each 1 4 Active Continuous Glucose Sensor (Dexcom G7 Sensor) Misc Change every 10 days 9 Each 1 5 Active Active Problems Problem Noted Date Diagnosed Date Colon polyp 06/08/2024 Type 1 diabetes mellitus with diabetic polyneuro eileen 12/18/2023 Encounters Date Type Department Care Team Description 04/04/2025 3:30 PM CDT Office Visit [facility] Endocrinology [facility] [address] [place] [address] Nick Balderrama MD Type 1 diabetes mellitus with diabetic polyneuropathy (HCC) (Primary Dx); Insulin pump titration; Hypoglycemia Discharge Disposition: Discharged to home or Selfcare 04/03/2025 Travel 03/11/2025 Refill [facility] [address] [place] [address] Nick Balderrama MD Medication Refill from Last 3 Months Family History Medical History Relation Name Comments Diabetes Brother No Known Problems Father Heart Attack Maternal Grandfather Cancer Mother Diabetes Paternal Grandfather Heart Attack Paternal Grandfather Relation Name Status Comments Brother Father Alive Maternal Grandfather Mother Alive Paternal Grandfather Social History Tobacco Use Types Packs/Day Years Used Date Smoking Tobacco: Former Cigarettes Smokeless Tobacco: Never Tobacco Cessation:Counseling Given: Not Answered Alcohol Use Standard Drinks/Week Comments Yes 0 (1 standard drink = 0.6 oz pur e alcohol) rare Sexually Active Control Partners Comments Yes Comments No Sex and Gender Information Value Date Recorded Sex Assigned at Female 06/04/2024 10:37 PM CDT Legal Sex Female 10:36 AM CDT Gender Identity Female 06/04/2024 10:37 PM CDT Sexual Orientation Straight 06/04/2024 10 :37 PM CDT Last Filed Vital Signs Vital Sign Reading Time Taken Comments Blood Pressure 116/74 04/04/2025 2:48 PM CDT Pulse 78 04/04/2025 2:48 PM CDT Temperature 36.6 C (97.8 F) 04/04/2025 2:48 PM CDT Respiratory Rate 20 04/04/2025 2:48 PM CDT Oxygen Saturation 98% 04/04/2025 2:48 PM CDT Inhaled Oxygen Concentration - - Weight 66.3 kg (146 lb 3.2 oz) 04/04/2025 2:48 P M CDT Height 163.8 cm (5' 4.5) 05/01/2024 11:03 AM CD T Body Mass Index 24.71 05/01/2024 11:03 AM CDT Plan of Treatment Upcoming Encounters Date Type Department Care Team (Late st Contact Info) Description 07/11/2025 3:45 PM CDT Office Visit [facility] - [place] [address] [place] [address] Nick Balderrama MD [address] [address] Health Maintenance Due Date Last Done Comments Hepatitis C Virus (HCV) Screening 1975 SARS-COV-2 Immunization (#1) 1980 Hepatitis B Immunization (1 of 3 - 19+ 3-dose series) 1994 Pneumococcal Immunization Combined (1 of 2 - PCV) 1994 Pap Smear 1996 Cervical Cancer Screening (CCS) 2005 HPV/Cotest 2005 Cologuard 2020 Immunochemical Fecal Occult Blood 2020 Diabetes: Nephropathy Screening 11/01/2024 11/01/2023 Diabetes: Eye Exam 12/07/2024 12/07/2023 Influenza Immunization (#1) 2025 Diabetes: Foot Exam 07/12/2025 07/12/2024, Diabetes: Hemoglobin A1c 10/05/2025 025, 10/25/2024, 07/12/2024, Additional history exists Mammogram 11/15/2025 11/15/2024 Colonoscopy 06/08/2034 06/08/2024 Colorectal Cancer Screening 06/08/2034 Respiratory Syncytial Virus (RSV) Immunization (Adult) (1 - 1-dose 75+ series) 2050 Discussion re Starting/Frequency of Mammograms Completed 11/15/2024 DTaP/Tdap/Td Immunization Discontinued 03/11/2025 TdaP Immunization Completed 03/11/2025 Human Papillomavirus (HPV) Immunization Aged Out No longer eligible based on patient's age to complete this topic Meningococcal Immunization (ACWY) Aged Out No longer eligible based on patient's age to complete this topic Rotavirus Immunization Aged Out No lo nger eligible based on patient's age to complete this topic Procedures Procedure Name Priority Date/Time Associated Diagnosis Comments POCT GLYCOSYLATED HEMOGLOBIN Routine 04/04/2025 2:51 PM CDT Type 1 diabetes mellitus with diabetic polyneuropathy (HCC) [facility] SCREENING BILATERAL DIGITAL W CAD W ESTUARDO Routine 11/15/2024 11:55 AM WAFER FABRICATION OPERATOR Encounter for screening mammogram for malignant neoplasm of breast CMP (COMPREHENSIVE METABOLIC PANEL) STAT 11/01/2023 12:44 AM WAFER FABRICATION OPERATOR from Last 3 Months or Most Recently Relevant to Health Maintenance Results * (ABNORMAL) POCT GLYCOSYLATED HEMOGLOBIN (04/04/2025 2:51 PM CDT) HGB-A1C 8.2(A) 4 - 6 % Blood 04/04/2025 2:51 PM CDT us Nick Balderrama MD POINT OF CARE TESTING (MANUAL) F inal Result * REX SCREENING BILATERAL DIGITAL W CAD W ESTUARDO (11/15/2024 11:55 AM WAFER FABRICATION OPERATOR) Anatomical Region Laterality Modality breast Bilateral Mammography 11/15/2024 11:4 9 AM WAFER FABRICATION OPERATOR Narrative 11/16/2024 1:05 PM WAFER FABRICATION OPERATOR - REX SCREENING BILATERAL DIGITAL W CAD W ESTUARDO BILATERAL DIGITAL SCREENING MAMMOGRAM 3D/2D WITH CAD WITH MEDIOLATERAL OBLIQUE CRANIOCAUDAL: 11/15/2024 The study was acquired using digital technology and interpreted from soft copy. Current study was also evaluated with ICAD version 7.2. 2D digital mammographic views, as well as 3D digital tomosynthesis were performed in the CC and MLO projections. CLINICAL: New baseline. Routine screening. Patient has no complaints. She has reduced range of motion in her right shoulder. No personal history of cancer. No family history of breast cancer. COMPARISONS: No prior exams were available for comparison. BREAST TISSUE:The breasts are heterogeneously dense, which may obscure small masses. FINDINGS: No significant masses, calcifications, or other findings are seen in either breast. IMPRESSION: NEGATIVE There is no mammographic evidence of malignancy. A 1 year screening mammogram is recommended. A letter will be sent to the patient with these results. The patient will be entered into a reminder system with a target due date of 1 year for her next screening exam. Electronically signed by: Dara kinsey/peter:11/16/2024 12:13:50 Shaker Washer(s): RT Linnette(R)(M), [facility] letter sent: Normal Exam Reading location: [facility] [place] Mammogram BI-RADS: Category 1: Negative Procedure Note Dara Salazar MD - 11/16/2024 - REX SCREENING BILATERAL DIGITAL W CAD W ESTUARDO BILATERAL DIGITAL SCREENING MAMMOGRAM 3D/2D WITH CAD WITH MEDIOLATERAL OBLIQUE CRANIOCAUDAL: 11/15/2024 The study was acquired using digital technology and interpreted from soft copy. Current study was also evaluated with ICAD version 7.2. 2D digital mammographic views, as well as 3D digital tomosynthesis were performed in the CC and MLO projections. CLINICAL: New baseline. Routine screening. Patient has no complaints. She has reduced range of motion in her right shoulder. No personal history of cancer. No family history of breast cancer. COMPARISONS: No prior exams were available for comparison. BREAST TISSUE:The breasts are heterogeneously dense, which may obscure small masses. FINDINGS: No significant masses, calcifications, or other findings are seen in either breast. IMPRESSION: NEGATIVE There is no mammographic evidence of malignancy. A 1 year screening mammogram is recommended. A letter will be sent to the patient with these results. The patient will be entered into a reminder system with a target due date of 1 year for her next screening exam. Electronically signed by: Dara kinsey/peter:11/16/2024 12:13:50 Shaker Washer(s): RT Linnette(R)(M), [facility] letter sent: Normal Exam Reading location: [facility] [place] Mammogram BI-RADS: Category 1: Negative us Tresa Krishnamurthy MD IMG MAMMO ORDERABLES Final Re sult * (ABNORMAL) CMP (11/01/2023 12:44 AM WAFER FABRICATION OPERATOR) SODIUM 133(L) 136 - 145 mmol/L 11/01/2023 1:19 AM [facility] POTASSIUM 4.2 3.5 - 5.1 mmol/L 11/01/2023 1:19 AM [facility] CHLORIDE 93(L) 98 - 107 mmol/L 11/01/2023 1:19 AM [facility] CO2, VENOUS 19(L) 22 - 30 mmol/L 11/01/2023 1:19 AM [facility] ANION GAP 25.2(H) <18.0 mmol/L 11/01/2023 1:19 AM [facility] GLUCOSE 330(H) 70 - 99 mg/dL 11/01/2023 1:19 AM [facility] BUN 9 5 - 18 mg/dL 11/01/2023 1:19 AM [facility] CREATININE, BLOOD 0.98 0.60 - 1.00 mg/dL 11/01/2023 1:19 AM [facility] BUN/CREATININE RATIO 9(L) 12 - 20 ratio 11/01/2023 1:19 AM [facility] TOTAL PROTEIN 7.6 6.3 - 8.2 g/dL 11/01/2023 1:19 AM [facility] ALBUMIN 4.0 3.5 - 5.0 g/dL 11/01/2023 1:19 AM [facility] A/G RATIO 1.1 1.0 - 2.2 11/01/2023 1:19 AM [facility] CALCIUM 9.5 8.7 - 10.5 mg/dL 11/01/2023 1:19 AM [facility] T BILI 0.6 0.2 - 1.2 mg/dL 11/01/2023 1:19 AM [facility] SGOT (AST) 23 5 - 34 U/L 11/01/2023 1:19 AM [facility] SGPT (ALT) 14 0 - 55 U/L 11/01/2023 1:19 AM [facility] ALKALINE PHOSPHATASE 73 40 - 150 U/L 11/01/2023 1:19 AM [facility] GFR, ESTIMATED >60 >=60 11/01/2023 1:19 AM [facility] Comment: Creatinine Clearance is the preferred criteria for selecting drug dose adjustments in renally impaired patients. The GFR is provided as additional pertinent clinical information. GFR is reported in mL/min/1.73 sq m. Calculation based on the Chronic Kidney Disease Epidemiology Collaboration (CKD- EPI) equation refit without adjustment for race. GFR, EST. >60 >=60 023 1:19 AM [facility] GFR, EST. NONAFRICAN >60 >=60 11/01/2023 1:19 AM [facility] Blood Venipuncture / Unknown 11/01/2023 12:44 AM WAFER FABRICATION OPERATOR 11/01/2023 12:54 AM WAFER FABRICATION OPERATOR Wayne Lawler MD CHEMISTRY ORDERABLES Final Resu lt [facility] [place] [address] from Last 3 Months or Most Recently Relevant to Health Maintenance Insurance MEDICAID [place]NEZ [id number] Care Teams Anesthesiology Fellow Relationship Specialty Start Date End Date Radha Lisa APRN, CNP [address] [place] [address] PCP - General Family Medicine 06/30/23 Nick Balderrama MD [facility] [phone] Consulting Physician Endocrinology 08/19/23 Eugenia Roger APRN, BLACK TOP PAVER OPERATOR [address] [place] [address] Nurse Practitioner Advanced Practice Nurse 05/01/24
--- OUTSIDE RECORDS SUMMARY | 2025-05-26 11:35 | XMS_ITS | Clinical Summary ---
Author Organization [facility] [employer] Address [address] [place] [address] Care Team Providers Care Maintenance Electrician Name Role Phone Radha Lisa APRN-STREETCAR REPAIRER Primary Care Provider [phone] Source Comments [facility] [employer],non-owned Affiliates and Associated Physician Practices is amultiple site organization consisting of ambulatory clinics and hospital sitesin [place], [place], [place] and [place]. This disclosure is being madepursuant to the Care Everywhere program and may not contain all information available regarding this patient. Last updated 18.[facility] [employer] Allergies Active Allergy Reactions Criticality Noted Date Comments Hydrocodone Palpitations Low 03/27/2020 Ibuprofen Swelling Medium 03/27/2020 Lortab Itching 07/22/2023 Penicillin V Potassium Other 07/22/2023 Medications * Be aware that medications may not be up to date on this document. Alwaysverify current medications with the patient. albuterol HFA (Proventil; Ventolin; Proair) 108 (90 Base) MCG/ACT inhaler TAKE 2 PUFFS BY INHALATION EVERY 6 HOURS NEEDED FOR COUGH 3 Active albuterol HFA (Proventil; Ventolin; Proair) 108 (90 Base) MCG/ACT inhaler Inhale 2 (two) puffs by mouth every 6 hours as needed 3 Active gabapentin (Neurontin) 100 MG capsule Take 2 (two) capsules by mouth 3 times daily 3 Active OneTouch Ultra test strip TEST FOUR TIMES DAILY DIRECTED 3 Active insulin glargine (Lantus/Semgle e) 100 units/ml injection Inject 9 (nine) Units subcutaneously every 12 hours 3 Active insulin lispro (HumaLOG;ADMel og) 100 UNIT/ML pen 1 units for every 10 gm of carb before each meal and snack, up to 50 units/day 0 Active TRUEplus 5-Bevel Pen Harris 31G X 8 MM needle USE TO INJECT THREE TIMES DAILY DIRECTED 3 Active methotrexate 2.5 MG tablet TAKE 4 TABLET BY MOUTH FOR WEEK 1, THEN 5 TABLET BY MOUTH EVERY WEEK 30 tablet 1 4 Active folic acid (Folvite) 1 MG tablet TAKE 1 TABLET BY MOUTH DAILY 30 tablet 5 5 Active Encounters Date Type Department Care Team Description 04/11/2025 Refill [facility] - Rheumatology [address] [place] [id number] Lorraine Roth MD Refill Request from Last 3 Months Social History Tobacco Use Types Packs/Day Years Used Date Smoking Tobacco: Former Smokeless Tobacco: Former Tobacco Cessation:Counseling Given: No Comments Unknown Sex and Gender Information Value Date Recorded Sex Assigned at Not on file Legal Sex Female 10:51 AM SHOPPING CENTRE MANAGER Gender Identity Not on file Sexual Orientation Not on file Last Filed Vital Signs Vital Sign Reading Time Taken Comments Blood Pressure 118/74 11/25/2023 1:40 PM SHOPPING CENTRE MANAGER Pulse 83 11/25/2023 1:40 PM SHOPPING CENTRE MANAGER Temperature - - Respiratory Rate - - Oxygen Saturation - - Inhaled Oxygen Concentration - - Weight 61.1 kg (134 lb 9.6 oz) 11/25/2023 1:40 P M SHOPPING CENTRE MANAGER Height 162.6 cm (5' 4) 11/25/2023 1:40 PM SHOPPING CENTRE MANAGER Body Mass Index 23.1 11/25/2023 1:40 PM SHOPPING CENTRE MANAGER Plan of Treatment Upcoming Encounters Date Type Department Care Team (Late st Contact Info) Description 06/25/2025 1:40 PM CDT Office Visit [facility] - Rheumatology [address] [place] [address] Lorraine Roth MD [address] [place] [phone] Health Maintenance Due Date Last Done Comments COLOGUARD (AGES 45-75) - COL ON CA SCREENING 1975 COLON MONITORING 1975 COLONOSCOPY - COLON CA SCREENING 1975 CT COLONOGRAPHY - COLON CA SCREENING 1975 Colorectal Cancer Screening 1975 FIT - COLON CA SCREENING 1975 FLEX SIG - COLON CA SCREENING 1975 LIPID TESTING 1975 MAMMOGRAM 1975 HIV SCREENING 1990 HEPATITIS C SCREENING 09/11/1993 DTAP/TDAP/TD VACCINES (1 - Tdap) 1994 HEPATITIS B VACCINE (1 of 3 - 19+ 3-dose series) 1994 PAP SMEAR 1996 COVID-19 VACCINE (1 - 2023-2 5 season) 2024 DEPRESSION SCREENING 11/07/2024 INFLUENZA VACCINE (#1) 2025 ZOSTER VACCINE (1 of 2) 2025 HIB VACCINE Aged Out No longer eligi ble based on patient's age to complete this topic HPV VACCINE Aged Out No longer eligi ble based on patient's age to complete this topic MENINGOCOCCAL (Group B) VACC INE SHARED DECISION-MAKING Aged Out No longer eligibl e based on patient's age to complete this topic MENINGOCOCCAL GROUPS A/C/Y/W VACCINE Aged Out No longer eligible b ased on patient's age to complete this topic [place] [address] [address] MEDICAID Care Teams Maintenance Electrician Relationship Specialty Start Date End Date Radha Lisa APRN-EMMANUEL [address] [place] [address] PCP - General Nurse Practitioner Family 11/25/23
--- OUTSIDE RECORDS SUMMARY | 2025-05-26 11:38 | XMS_ITS | Continuity of Care Document ---
Author Organization [facility] Address [address] [place] [address] Phone Care Team Providers Care Sub Prior Name Role Phone Unavailable Unavailable Unavailable Allergies, [...] EAR STICK) OFFICE/OUTPATIENT VISIT, EST OFFICE/OUTPATIENT VISIT, [facility] COLLECTION OF VENOUS BLOOD BY VENIPUNCTU Advance Directives Directive Yes / No Effective Date File Name No Information Encounters Encounter Description Practice Location Reason(s) For Visit Diagnoses Date Provider Providers Copied on Encounter [facility], [address], [place], [place], [id number] , [place] tel: [phone] [facility] No Information 4 No Information [facility], [address], [place], [place], [id number] , [place] tel:[phone] [facility] No Information 3 No Information OFFICE/OUTPA TIENT VISIT, EST [facility], [address], [place], [place], [address] , [place] tel: [phone] [facility] diabetes (chief complaint) allergies (chief complaint) back pain (chief complaint) Diabetes with ketoacidosis, type I [juvenile type], not stated as uncontrolledAllerg ic reaction caused by a drugLumbagoRoutine general medical examination at a health care facility 3 No Information OFFICE/OUTPA TIENT VISIT, [facility], [address], [place], [place], [address] , [place] tel: [phone] Helga Grimaldo rt eye problem (chief complaint) Diabetes mellitus without mention of complication, type II or unspecified type, not stated as uncontrolledHordeo lum externum 2 No Information OFFICE/OUTPA TIENT VISIT, [facility], [address], [place], [place], [id number] , [place] tel: [phone] Helga Grimaldo diabetes (chief complaint) blisters on [...] Of Treatment Date Type Action Status Goal AST. Due on due Goal TSH. Due on due Goal Hemoglobin A1C. Due on due Goal Lipid Panel. Due on 013 due Goal BMP fasting. Due on 013 due Goal ALT. Due on due History Of Present Illness Encounter Date Complaint History Of Prese nt Illness No Information Functional Status Date Functional Assessmen t No Information Instructions Date Instruction Additional John page Continue current medication Patient understood and made info rmed decision Change medication Reviewed medications Assessments Type Assessment Date No Information Patient Care Teams Name Effective Dates (start - stop) Status Members No Information
--- OUTSIDE RECORDS SUMMARY | 2025-05-26 11:38 | XMS_ITS | Continuity of Care Document ---
Author Organization [facility] Address [address] [place] [address] [address] [place] [address] Phone Care Team Providers Care Solar Water Heater Installer Name Role Phone Jovita Gautam Unavailable Unavailable Advance Directives Directive Yes / No Effective Date File Name No Information Encounters Encounter Description Practice Location Reason(s) For Visit Diagnoses Date Provider Providers Copied on Encounter [facility], [id number] [place] [address] [address], [place], [place], [id number], [place] tel:[phone] [facility]3] No Information 3 Lotus Hussein. [address] , [address], [place], [address], [place]. tel:[phone] Referring Provider: Benji Monreal MD, [address], [facility]. tel:[phone] Family History Family Member Type Diagnosis Age [...]
--- NOTE | 2025-05-26 11:41 | ED.URI ---
HPI - URI/Sore Throat General Chief Complaint: Upper Respiratory Infection Stated Complaint: Cough/Chest Congesiton/Low Back Pain Time Seen by Provider: 05/26/25 11:45 Source: patient and RN notes reviewed Mode of arrival: ambulatory Limitations: no limitations History of Present Illness HPI Narrative: 49-year-old female presented complaint of headache, body aches, sinus pressure/congestion, cough, and sore throat. Onset One week. Denies sob, wheezing, n/v/d/f/c. Taking otc meds for symptoms. 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 MD elicited complaint: cough Related Data Home Medications ?Medication ?Instructions ?Recorded ?Confirmed ?Last Taken ?Type blood-glucose sensor (Dexcom G7 09/08/24 09/08/24 Unknown History Sensor device) gabapentin 100 mg capsule mg 09/08/24 Unknown History folic acid 1 mg tablet 05/26/25 Unknown History insulin pump cartridge 05/26/25 Unknown History Allergies Allergy/AdvReac Type Severity Reaction Status Date / Time hydrocodone Allergy Anxiety Verified 05/26/25 11:46 ibuprofen Allergy Swelling Verified 05/26/25 11:46 of Lip/Tongue/Throat Penicillins Allergy Rash Verified 05/26/25 11:46 Review of Systems Review of Systems: CONSTITUTIONAL: denies malaise, body aches, chills, sweats, fever EYES: Denies visual changes, redness, or discharge ENT: Reports rhinorrhea, congestion, sinus pain, otalgia, sore throat CARDIOVASCULAR: Denies chest pain, palpitations, edema RESPIRATORY: Reports cough, post nasal drainage. Denies dyspnea GASTROINTESTINAL: Denies abdominal pain, nausea, vomiting, diarrhea SKIN: Denies rash or itching NEUROLOGIC: reports headache PMFSH Past Medical History Medical History (Updated 05/26/25 @ 11:57 by Gavi Bridges, TERRAZZO GRINDER) Diabetes Surgical History Surgical History History of History of hand surgery Family History Family History Mother Family history non-contributory Social History Social History Living arrangements: with family Gender identity (if verbalized by the patient): Female Sexual Orientation (if Verbalized by the Patient): Straight or Heterosexual Spiritual care concerns: No Exam Narrative: GENERAL: mildly Ill-appearing, nontoxic no acute distress. EYES: conjunctivae clear ENT: Mucous membranes moist. Tender frontal and maxillary sinuses. TMs unable to visualize due to excess cerumen bilaterally; no tragal tenderness. Oropharynx erythematous without lesions or exudate, no drooling, no hoarseness, no trismus, uvula midline. No tripod positioning, muffled voice, soft palate or pharyngeal wall bulging NECK: Supple. No lymphadenopathy CHEST: Clear to auscultation, breath sounds equal. No wheezing, rhonchi, rales, or stridor. No respiratory distress, speaks in full sentences. HEART: Regular rate and rhythm. SKIN: Warm, dry, no rash. NEURO: Alert and oriented x3. PSYCH: Normal mood and affect Course Course Emergency Course: Patient is aware of diagnosis, understands and agrees to treatment plan. Anticipatory guidance given. Patient agrees to follow-up as directed and is aware of reasons to seek care at the emergency department. Portions of this record may have been created with voice recognition software Level of Care: Express Care Visit Vital Signs Vital signs: reviewed MDM - URI/Sore Throat MDM Narrative Medical decision making narrative: Discussed physical exam findings and test results. Discussed viral vs bacterial infections. Shared decision making Will send steroid, and pt will start abx if no improvement. Advised supportive measures and signs/symptoms to go to the ER. Pt is appropriate for outpt treatment and f/u. Differential Diagnosis Differential diagnosis: Likely upper respiratory infection, sinusitis, viral infection, bronchitis and influenza Discharge Plan Discharge Clinical Impression: Bronchitis Patient Disposition: Home Condition: Stable Instructions: Antibiotic Form, Acute Bronchitis (ED) Additional Instructions: flu and COVID negative Rapid strep swab was negative today You will be notified in a few days if the culture comes back positive for strep, and appropriate antibiotics will be called in at that time. if symptoms are due to a viral illness, it is not treated with antibiotics. Viral symptoms can be present for up to 10-14 days. Recommendations: Flonase spray and Zyrtec for sinus congestion Cough syrup may cause drowsiness; avoid driving or take it at night time. Tylenol every 8 hours as needed for pain/fever Soft foods, cool liquids, warm tea. Gargle with warm saltwater twice a day. Chloraseptic spray and throat lozenges. Rest and stay hydrated. Take steroid as directed, continue to monitor blood sugar levels if no improvement in symptoms within 3-5 days you can start the antibiotic --Follow up with your PCP --Go to the ER For any worsening symptoms or concerns Patient Language: Anguillan Prescriptions: New azithromycin [Zithromax Z-Placido] 250 mg tablet See Rx Instructions .ROUTE .COMPLEX Qty: 6 0RF Rx Instructions: For 250 mg dose pack: take 500 mg today (day 1), then 250 mg for 4 days (days 2-5) benzonatate 200 mg capsule 200 mg PO TID PRN (Reason: cough) Qty: 20 0RF prednisone 20 mg tablet 40 mg PO DAILY 4 Days Qty: 8 0RF No Action gabapentin 100 mg capsule (DME) Dexcom G7 Sensor Device MISCELLANEOUS folic acid 1 mg tablet insulin pump cartridge Follow-up/Referrals: Lisa,Radha Freire APN [Primary Care Provider] - Time of Disposition: 11:58
[2025-05-26 11:44] VITALS: BP 137/72; PULSE 97; RESP 18; TEMP 36.7; O2SAT 99
[2025-05-26 12:01] LABS: EDCOVIDSCREEN Negative (Negative); EDINFLUASCREEN Negative (Negative); EDINFLUBSCREEN Negative (Negative); EDSTREPNEGPOS1 Negative (Negative)
== END 2025-05-26 12:04 | disposition home or self-care (01) ==
PROVIDERS: Emergency Provider Nurse Practitioner Family; PCP Nurse Practitioner Family
DX: J40 Bronchitis, not specified as acute or chronic (principal); Z20.822 Contact with and (suspected) exposure to COVID-19; E11.9 Type 2 diabetes mellitus without complications; Z96.41 Presence of insulin pump (external) (internal)
CPT/HCPCS: 87081; 87426; 87804; 87880; 99213; G0463

== ENCOUNTER 2025-06-13 17:24 | Emergency (ER) | payer BC, SELFPAY ==
--- NOTE | ~2025-06-13 | XR_ITS ---
HISTORY: pain left ankle no injury, lateral swelling COMPARISON: None TECHNIQUE: 3 views of the left ankle were performed FINDINGS: No acute fracture or dislocation. Increased sclerosis is identified within the intersection of the body and neck of the talus, with ant erior cortical irregularity, for which MRI is recommended. Trace lateral soft tissue swelling. The ankle mortise is preserved. Bone mineralization is otherwise age-appropriate. IMPRESSION: Increased sclerosis within the intersection of the body and neck of the talus on lateral view with anterior cortical irregularity for which nonemergent MRI is suggested, if the patient is c linically able. No acute fracture or dislocation. Reviewed, dictated and finalized at location A. IMPRESSION: Increased sclerosis within the intersection of the body and neck o f the talus on lateral view with anterior cortical irregularity for which nonem ergent MRI is suggested, if the patient is clinically able. No acute fracture or dislocation.
--- OUTSIDE RECORDS SUMMARY | 2025-06-13 17:26 | XMS_ITS | Continuity of Care Document ---
Author Organization [facility] Address [id number] [place] [address] [address] [place] [address] Phone Care Team Providers Care Front Desk Supervisor Name Role Phone Jovita Gautam Unavailable Unavailable Advance Directives Directive Yes / No Effective Date File Name No Information Encounters Encounter Description Practice Location Reason(s) For Visit Diagnoses Date Provider Providers Copied on Encounter [facility], [id number] [place] [address] [address], [place], [place], [address], [place] tel:[phone] [facility] No Information 3 Lotus Hussein. [address] , [address], [place], [address], [place]. tel:[phone] Referring Provider: Benji Monreal MD, [address], [facility]. tel:[phone] Family History Family Member Type Diagnosis Age At Onset No Information Payers Payer name Insurance type Covered alliance party ID Authoriza tion(s) No Information Social [...]
--- OUTSIDE RECORDS SUMMARY | 2025-06-13 17:26 | XMS_ITS | Continuity of Care Document ---
Author Organization [facility] Address [address] [place] [address] Phone Care Team Providers Care Flash Ranging Crewmember Name Role Phone Unavailable Unavailable Unavailable Allergies, [...] EAR STICK) OFFICE/OUTPATIENT VISIT, EST OFFICE/OUTPATIENT VISIT, [facility] COLLECTION OF VENOUS BLOOD BY VENIPUNCTU Advance Directives Directive Yes / No Effective Date File Name No Information Encounters Encounter Description Practice Location Reason(s) For Visit Diagnoses Date Provider Providers Copied on Encounter [facility], [address], [place], [place], [address] , [place] tel: [phone] [facility] No Information 4 No Information [facility], [address], [place], [place], [address] , [place] tel:[phone] [facility] No Information 3 No Information OFFICE/OUTPA TIENT VISIT, EST [facility], [address], [place], [place], [address] , [place] tel: [phone] [facility] diabetes (chief complaint) allergies (chief complaint) back pain (chief complaint) Diabetes with ketoacidosis, type I [juvenile type], not stated as uncontrolledAllerg ic reaction caused by a drugLumbagoRoutine general medical examination at a health care facility 3 No Information OFFICE/OUTPA TIENT VISIT, [facility], [address], [place], [place], [address] , [place] tel: [phone] Helga Grimaldo rt eye problem (chief complaint) Diabetes mellitus without mention of complication, type II or unspecified type, not stated as uncontrolledHordeo lum externum 2 No Information OFFICE/OUTPA TIENT VISIT, [facility], [address], [place], [place], [address] , [place] tel: [phone] Helga Grimaldo diabetes (chief complaint) blisters on [...] Of Treatment Date Type Action Status Goal Lipid Panel. Due on 013 due Goal ALT. Due on due Goal BMP fasting. Due on 013 due Goal Hemoglobin A1C. [...]
--- OUTSIDE RECORDS SUMMARY | 2025-06-13 17:26 | XMS_ITS | Clinical Summary ---
Author Organization [facility] [employer] Address [address] [place] [address] Care Team Providers Care Usps Letter Carrier Name Role Phone Radha Lisa APRN-SILVICULTURE PROFESSOR Primary Care Provider [phone] Source Comments [facility] [employer],non-owned Affiliates and Associated Physician Practices is amultiple site organization consisting of ambulatory clinics and hospital sitesin [place], [place], [place] and [place]. This disclosure is being madepursuant to the Care Everywhere program and may not contain all information available regarding this patient. Last updated 18.[facility] [employer] Allergies Active Allergy Reactions Criticality Noted Date [...] 50 units/day 0 Active TRUEplus 5-Bevel Pen [place] 31G X 8 MM needle USE TO [...] Type Department Care Team Description 04/11/2025 Refill [facility] - Rheumatology [address] [place] [address] Lorraine Roth MD Refill Request from Last 3 Months Social History Tobacco Use Types Packs/Day Years Used Date Smoking Tobacco: Former Smokeless Tobacco: Former Tobacco Cessation:Counseling Given: No Comments Unknown Sex and Gender Information Value Date Recorded Sex Assigned at Not on file Legal Sex Female 10:51 AM VISITOR SERVICES INFORMATION ASSISTANT Gender Identity Not on file Sexual Orientation Not on file Last Filed Vital Signs Vital Sign Reading Time Taken Comments Blood Pressure 118/74 11/25/2023 1:40 PM VISITOR SERVICES INFORMATION ASSISTANT Pulse 83 11/25/2023 1:40 PM VISITOR SERVICES INFORMATION ASSISTANT Temperature - - Respiratory Rate - - Oxygen Saturation - - Inhaled Oxygen Concentration - - Weight 61.1 kg (134 lb 9.6 oz) 11/25/2023 1:40 P M VISITOR SERVICES INFORMATION ASSISTANT Height 162.6 cm (5' 4) 11/25/2023 1:40 PM VISITOR SERVICES INFORMATION ASSISTANT Body Mass Index 23.1 11/25/2023 1:40 PM VISITOR SERVICES INFORMATION ASSISTANT Plan of Treatment Upcoming Encounters Date Type Department Care Team (Late st Contact Info) Description 06/25/2025 1:40 PM CDT Office Visit [facility] - Rheumatology [address] [place] [address] Lorraine Roth MD [address] [place] [address] [phone] Health Maintenance Due Date Last Done Comments [...] patient's age to complete this topic [place] [address] [place] [address] MEDICAID Care Teams Usps Letter Carrier Relationship Specialty Start Date End Date Radha Lisa APRN-EMMANUEL [address] [place] [address] PCP - General Nurse Practitioner Family 11/25/23
--- OUTSIDE RECORDS SUMMARY | 2025-06-13 17:26 | XMS_ITS | Clinical Summary ---
Author Organization [facility] Address [address] [facility], [facility] [address] [place] [address] Phone Care Team Providers Care Lcsw Name Role Phone Radha Lisa APRN, CLAIMS PROCESSOR Primary Care Provider [phone] Nick Balderrama MD Unavailable Eugenia Roger APRN, CLAIMS PROCESSOR Unavailable Allergies Active Allergy Reactions Criticality Noted [...] Cough. 18 g 3 Active Continuous Glucose Research Associate (Dexcom G7 Research Associate) Device Check blood glucose before each meal [...] 1 4 Active Insulin Pen Needle (Pen [place]) 32G X 4 MM Misc Up to [...] Description 04/04/2025 3:30 PM CDT Office Visit [facility] - Endocrinology [facility] [address] [place] [address] Nick Balderrama MD Type 1 diabetes mellitus with diabetic polyneuropathy (HCC) (Primary Dx); Insulin pump titration; Hypoglycemia Discharge Disposition: Discharged to home or Selfcare 04/03/2025 Travel from Last 3 Months Family History Medical [...] Visit [facility] - Endocrinology - [place] [address] [place] [address] Nick Balderrama MD [address] [address] Health Maintenance Due Date Last Done Comments [...] (#1) 2025 Diabetes: Foot Exam 07/12/2025 07/12/2024, 3 Diabetes: Hemoglobin A1c 10/05/2025 025, 10/25/2024, 07/12/2024, [...] 1 diabetes mellitus with diabetic polyneuropathy (HCC) [facility] SCREENING BILATERAL DIGITAL W CAD W ESTUARDO Routine 11/15/2024 11:55 AM FARM WORKER Encounter for screening mammogram for malignant neoplasm of breast CMP (COMPREHENSIVE METABOLIC PANEL) STAT 11/01/2023 12:44 AM FARM WORKER from Last 3 Months or Most Recently Relevant to Health Maintenance Results * (ABNORMAL) POCT GLYCOSYLATED HEMOGLOBIN (04/04/2025 2:51 PM CDT) HGB-A1C 8.2(A) 4 - 6 % Blood 04/04/2025 2:51 PM CDT us Nick Balderrama MD POINT OF CARE TESTING (MANUAL) F inal Result * [facility] SCREENING BILATERAL DIGITAL W CAD W ESTUARDO (11/15/2024 11:55 AM FARM WORKER) Anatomical Region Laterality Modality breast Bilateral Mammography 11/15/2024 11:4 9 AM FARM WORKER Narrative 11/16/2024 1:05 PM FARM WORKER - [facility] SCREENING BILATERAL DIGITAL W CAD [...] next screening exam. Electronically signed by: Dara kisney/peter:11/16/2024 12:13:50 Glue Sprayer(s): RT Linnette(Stormy)(M), [facility] letter sent: Normal Exam Reading location: [facility] Mammogram BI-RADS: Category 1: Negative Procedure Note [...] next screening exam. Electronically signed by: Dara Salazar M.D. ab/penrad:11/16/2024 12:13:50 Glue Sprayer(s): RT Linnette(R)(M), [facility] letter sent: Normal Exam Reading location: [facility] Mammogram BI-RADS: Category 1: Negative us Tresa Krishnamurthy MD IMG MAMMO ORDERABLES Final Re sult * (ABNORMAL) CMP (11/01/2023 12:44 AM FARM WORKER) SODIUM 133(L) 136 - 145 mmol/L 11/01/2023 1:19 AM [facility] POTASSIUM 4.2 3.5 - 5.1 mmol/L 11/01/2023 1:19 AM [facility] CHLORIDE 93(L) 98 - 107 mmol/L 11/01/2023 1:19 AM [facility] CO2, VENOUS 19(L) 22 - 30 mmol/L 11/01/2023 1:19 AM [facility] ANION GAP 25.2(H) <18.0 mmol/L 11/01/2023 1:19 AM [facility] GLUCOSE 330(H) 70 - 99 mg/dL 11/01/2023 1:19 AM [facility] BUN 9 5 - 18 mg/dL 11/01/2023 1:19 AM [facility] CREATININE, BLOOD 0.98 0.60 - 1.00 mg/dL 11/01/2023 1:19 AM [facility] BUN/CREATININE RATIO 9(L) 12 - 20 ratio 11/01/2023 1:19 AM [facility] TOTAL PROTEIN 7.6 6.3 - 8.2 g/dL 11/01/2023 1:19 AM [facility] ALBUMIN 4.0 3.5 - 5.0 g/dL 11/01/2023 1:19 AM [facility] A/G RATIO 1.1 1.0 - 2.2 11/01/2023 1:19 AM [facility] CALCIUM 9.5 8.7 - 10.5 mg/dL 11/01/2023 1:19 AM [facility] T BILI 0.6 0.2 - 1.2 mg/dL 11/01/2023 1:19 AM [facility] SGOT (AST) 23 5 - 34 U/L 11/01/2023 1:19 AM [facility] SGPT (ALT) 14 0 - 55 U/L 11/01/2023 1:19 AM [facility] ALKALINE PHOSPHATASE 73 40 - 150 U/L 11/01/2023 1:19 AM [facility] GFR, ESTIMATED >60 >=60 11/01/2023 1:19 AM [facility] Comment: Creatinine Clearance is the preferred criteria for selecting drug dose adjustments in renally impaired patients. The GFR is provided as additional pertinent clinical information. GFR is reported in mL/min/1.73 sq m. Calculation based on the Chronic Kidney Disease Epidemiology Collaboration (CKD- EPI) equation refit without adjustment for race. GFR, EST. >60 >=60 023 1:19 AM FARM WORKER [facility] GFR, EST. NONAFRICAN >60 >=60 11/01/2023 1:19 AM [facility] Blood Venipuncture / Unknown 11/01/2023 12:44 AM FARM WORKER 11/01/2023 12:54 AM FARM WORKER us Wayne Lawler MD CHEMISTRY ORDERABLES Final Resu lt [facility] [address] [place] [address] from Last 3 Months or Most Recently Relevant to Health Maintenance Insurance MEDICAID [place] Care Teams Lcsw Relationship Specialty Start Date End Date Radha Lisa APRN, CNP [address] [address] [place] [address] PCP - General Family Medicine 06/30/23 Nick Balderrama MD [address] [address] Consulting Physician Endocrinology 08/19/23 Eugenia Roger APRN, CNP [address] [place] [address] Nurse Practitioner Advanced Practice Nurse 05/01/24
[2025-06-13 17:28] VITALS: BP 135/80; PULSE 104; RESP 20; TEMP 36.6; O2SAT 100
--- OUTSIDE RECORDS SUMMARY | 2025-06-13 17:28 | XMS_ITS | Continuity of Care Document ---
Author Organization [facility] Address [address] [place] [address] [address] [place] [address] Phone Care Team Providers Care Full Time Paramedic Name Role Phone Jovita Gautam Unavailable Unavailable Advance Directives Directive Yes / No Effective Date File Name No Information Encounters Encounter Description Practice Location Reason(s) For Visit Diagnoses Date Provider Providers Copied on Encounter [facility], [id number] [place] [address] [address], [place], [place], [address], [place] tel:[phone] [facility] No Information 3 Lotus Hussein. [address] , [address], [place], [address], [place]. tel:[phone] Referring Provider: Benji Monreal MD, [address], [facility]. tel:[phone] Family History Family Member Type Diagnosis Age At Onset No Information Payers Payer name Insurance type Covered democrat ID Authoriza tion(s) No Information Social History [...]
--- OUTSIDE RECORDS SUMMARY | 2025-06-13 17:28 | XMS_ITS | Continuity of Care Document ---
Author Organization [facility] Address [address] [place] [address] Phone Care Team Providers Care Groundskeeping Maintenance Worker Name Role Phone Unavailable Unavailable Unavailable Allergies, [...] EAR STICK) OFFICE/OUTPATIENT VISIT, EST OFFICE/OUTPATIENT VISIT, [facility] COLLECTION OF VENOUS BLOOD BY VENIPUNCTU Advance Directives Directive Yes / No Effective Date File Name No Information Encounters Encounter Description Practice Location Reason(s) For Visit Diagnoses Date Provider Providers Copied on Encounter [facility], [address], [place], [place], [address] , [place] tel: [phone] [facility] No Information 4 No Information [facility], [address], [place], [place], [address] , [place] tel:[phone] [facility] No Information 3 No Information OFFICE/OUTPA TIENT VISIT, EST [facility], [address], [place], [place], [address] , [place] tel: [phone] [facility] diabetes (chief complaint) allergies (chief complaint) back pain (chief complaint) Diabetes with ketoacidosis, type I [juvenile type], not stated as uncontrolledAllerg ic reaction caused by a drugLumbagoRoutine general medical examination at a health care facility 3 No Information OFFICE/OUTPA TIENT VISIT, [facility], [address], [place], [place], [address] , [place] tel: [phone] Helga Grimaldo rt eye problem (chief complaint) Diabetes mellitus without mention of complication, type II or unspecified type, not stated as uncontrolledHordeo lum externum 2 No Information OFFICE/OUTPA TIENT VISIT, [facility], [address], [place], [place], [address] , [place] tel: [phone] Helga Grimaldo diabetes (chief complaint) blisters on [...]
--- NOTE | 2025-06-13 17:38 | ED.LOWEXIN ---
HPI - Extremity Injury (Lower) General Chief Complaint: Extremity Injury, Lower Stated Complaint: Left Ankle Pain ,Swelling Time Seen by Provider: 06/13/25 17:39 Source: patient and RN notes reviewed Mode of arrival: ambulatory Limitations: no limitations History of Present Illness HPI Narrative: 49-year-old female Presents Express Care complaining of injury to left ankle 1-2 days ago. 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 Patient has have been taking Tylenol and ibuprofen and doing rice therapy with minimal relief. Patient denies any numbness, tingling or any other injuries. Patient denies significant past medical history. Related Data Home Medications ?Medication ?Instructions ?Recorded ?Confirmed ?Last Taken ?Type blood-glucose sensor (Dexcom G7 09/08/24 09/08/24 Unknown History Sensor device) gabapentin 100 mg capsule mg 09/08/24 Unknown History folic acid 1 mg tablet 05/26/25 Unknown History insulin pump cartridge 05/26/25 Unknown History Allergies Allergy/AdvReac Type Severity Reaction Status Date / Time hydrocodone Allergy Anxiety Verified 06/13/25 17:33 ibuprofen Allergy Swelling Verified 06/13/25 17:33 of Lip/Tongue/Throat Penicillins Allergy Rash Verified 06/13/25 17:33 Review of Systems Review of Systems: CONSTITUTIONAL: Denies fever, chills, or sweats. EYES: Denies visual changes, redness, or discharge. ENT: Denies rhinorrhea, congestion, sore throat, or otalgia. CARDIOVASCULAR: Denies chest pain, palpitations, or edema. RESPIRATORY: Denies cough or dyspnea. GASTROINTESTINAL: Denies abdominal pain, nausea, vomiting, or diarrhea. GENITOURINARY: Denies dysuria or hematuria. SKIN: Denies rash, wound, or itching. MUSCULOSKELETAL: Denies back pain, joint pain, or myalgia. Positive for left ankle injury and swelling NEUROLOGIC: Denies headache, numbness, or weakness. PSYCHIATRIC: Denies anxiety or depression. All other systems reviewed are negative, except as documented in HPI. [facility] Past Medical History Medical History Diabetes Surgical History Surgical History History of hand surgery History of Family History Family History Mother Family history non-contributory Social History Social History Living arrangements: with family Gender identity (if verbalized by the patient): Female Sexual Orientation (if Verbalized by the Patient): Straight or Heterosexual Spiritual care concerns: No Comments At the time of my signature, I reviewed and agree with the nursing past medical, surgical, social, and family history. There is no relevant family history pertinent to the patient complaint. Exam Narrative: GENERAL: This is a well-nourished, well-developed adult, in no apparent distress. They are non ill-appearing, nontoxic appearing. HEAD: normocephalic, atraumatic. EYES: Sclera clear/white. Vision is grossly intact. Conjunctiva normal. Extraocular movement intact. EARS: External ears normal Hearing grossly intact. NOSE: External nose normal THROAT: Mucous membranes moist NECK: Neck supple CARDIOVASCULAR: Regular rate and rhythm RESPIRATORY: Respiratory rate normal, respiratory effort nonlabored, no respiratory distress NEURO: awake, alert, and oriented to person, place and time. There were no obvious focal neurologic abnormalities. EXTREMITIES: Left ankle No obvious deformity, injury, bruising, redness. Mild swelling to the lateral side. Mild tenderness through full range of motion. Mild tenderness to palpation lateral ankle. Capillary refill less than 3 seconds. Left pedal Pulse 2 +palpable. Normal sensation. Neurovascular status intact distal injury. Negative England's test. Patient is able to wiggle her toes. BACK: Nontender without deformity. Course Course Emergency Course: Portions of this record may have been created with voice recognition software Level of Care: Express Care Visit Vital Signs Vital signs: Vital Signs Temperature 97.8 F 06/13/25 17:28 Pulse Rate 104 H 06/13/25 17:28 Respiratory Rate 06/13/25 17:28 Blood Pressure 135/80 06/13/25 17:28 Pulse Oximetry 100 06/13/25 17:28 Oxygen Delivery Room Air 06/13/25 17:28 Temperature 97.8 F 06/13/25 17:28 Pulse Rate 104 H 06/13/25 17:28 Respiratory Rate 20 06/13/25 17:28 Blood Pressure 135/80 06/13/25 17:28 Pulse Oximetry 100 06/13/25 17:28 Oxygen Delivery Room Air 06/13/25 17:28 Reviewed MDM - Extremity Injury (Lower) MDM Narrative Medical decision making narrative: X-ray left ankle shows no fracture or acute findings. Incidental finding to patient's talus bone with sclerosis, recommendation of non emergent MRI. Patient likely has an ankle sprain. Advised patient to follow-up with PCP about x-ray findings. Patient given Jhonny wrap for comfort. Discussed physical exam findings. Advised supportive measures and signs/symptoms to go to the ER. Pt is appropriate for outpt treatment and f/u. Differential Diagnosis Differential diagnosis: Likely ankle sprain and strain, ankle fracture and other (Foot fracture) Imaging Data Radiologist's impression: ITS Impressions Ankle X-Ray 06/13/25 18:06 IMPRESSION: Increased sclerosis within the intersection of the body and neck of the talus on lateral view with anterior cortical irregularity for which nonemergent MRI is suggested, if the patient is clinically able. No acute fracture or dislocation. Critical Care Time Critical Care Time Critical Care Time: No Discharge Plan Discharge Clinical Impression: Ankle sprain and strain Patient Disposition: Home Condition: Stable Instructions: Antibiotic Form, Ankle Sprain (ED) Additional Instructions: X-ray of left ankle is negative for any fractures or acute findings. There is an incidental finding on your x-ray showing a possible degenerative changes to the heel of the foot. Please follow-up with your PCP about this finding. Rest and elevate the leg; bear weight as tolerated Apply ice 15-20 minute intervals several times a day Keep it wrapped with JHONNY or use a soft ankle splint Motrin 600mg -800mg every 6 to 8 hours, alternate with Tylenol 1000mg every 6 to 8 hours as needed Follow up with your primary care provider or orthopedist as needed in 1-2 weeks especially if pain persists. Patient Language: Nepali Prescriptions: No Action gabapentin 100 mg capsule (DME) Dexcom G7 Sensor Device MISCELLANEOUS folic acid 1 mg tablet insulin pump cartridge azithromycin [Zithromax Z-Placido] 250 mg tablet See Rx Instructions .ROUTE .COMPLEX Qty: 6 0RF Rx Instructions: For 250 mg dose pack: take 500 mg today (day 1), then 250 mg for 4 days (days 2-5) benzonatate 200 mg capsule 200 mg PO TID PRN (Reason: cough) Qty: 20 0RF prednisone 20 mg tablet 40 mg PO DAILY 4 Days Qty: 8 0RF Follow-up/Referrals: Lisa,Radha Freire APN [Primary Care Provider] - Star Sanchez MD [Physician] - Stand Alone Forms: Work/School Release IP Time of Disposition: 18:29
== END 2025-06-13 18:34 | disposition home or self-care (01) ==
PROVIDERS: PCP Nurse Practitioner Family
DX: S93.402A Sprain of unspecified ligament of left ankle, initial encounter (principal); S96.912A Strain of unspecified muscle and tendon at ankle and foot level, left foot, initial encounter; X58.XXXA Exposure to other specified factors, initial encounter; E11.9 Type 2 diabetes mellitus without complications
CPT/HCPCS: 73610; 99213; G0463

== ENCOUNTER → 2025-08-05 16:26 | Outpatient (CLI) | payer BC, SELFPAY ==
--- OUTSIDE RECORDS SUMMARY | 2003-03-25 08:00 | XMS_ITS | Continuity of Care Document ---
Author Organization [facility] Address [id number] [place] [address] [address] [place] [address] Phone Care Team Providers Care Supervisor Cd Area Name Role Phone Jovita Gautam Unavailable Unavailable Advance Directives Directive Yes / No Effective Date File Name No Information Encounters Encounter Description Practice Location Reason(s) For Visit Diagnoses Date Provider Providers Copied on Encounter [facility], [id number] [place] [address] [address], [place], [place], [id number], [place] tel:[phone] [facility] No Information 3 Lotus Hussein. [address] , [address], [place], [address], [place]. tel:[phone] Referring Provider: Benji Monreal MD, [address], [facility]. tel:[phone] Family History Family Member Type Diagnosis Age At Onset No Information Payers Payer name Insurance type Covered green party ID Authoriza tion(s) No Information Social History Type Description Quantity Date Captured Comments Sex Female Smoking Status No Information Chief Complaint And Reason For Visit No Information Reason For Referral Reason For Referral No Information History Of Present Illness Encounter Date Complaint History Of Prese nt Illness No Information Functional Status Date Functional Assessmen t No Information Instructions Date Instruction Additional Infor mation No Information Assessments Type Assessment Date No Information Patient Care Teams Name Effective Dates (start - stop) Status Members No Information
--- OUTSIDE RECORDS SUMMARY | 2014-03-01 02:46 | XMS_ITS | Continuity of Care Document ---
Author Organization [facility] Address [address] [place] [address] Phone Care Team Providers Care Herb Counselor Name Role Phone Unavailable Unavailable Unavailable Allergies, Adverse Reactions, Alerts Substance Reaction Status Criticality ibuprofen Active No Information Medications Medication Instructions Dosage Effective Dates (start - stop) Status Comments Insulin Syringe 1/2 mL 29 x 1/2 Use to administer insulin as prescribed - Active Novolog 100 unit/mL Sub-Q load into pump as directed - Active Benadryl Allergy 25 mg tablet take 1 Tablet (25MG) by oral route 1 - 6 times every day as needed 25 MG - Active Procedures Procedure Date COLLECTION OF VENOUS BLOOD BY VENIPUNCTU RE OFFICE/OUTPATIENT VISIT, EST COLLECTION OF CAPILLARY BLOOD SPECIMEN ( EG, FINGER, HEEL, EAR STICK) OFFICE/OUTPATIENT VISIT, EST OFFICE/OUTPATIENT VISIT, [facility] COLLECTION OF VENOUS BLOOD BY VENIPUNCTU Advance Directives Directive Yes / No Effective Date File Name No Information Encounters Encounter Description Practice Location Reason(s) For Visit Diagnoses Date Provider Providers Copied on Encounter [facility], [address], [place], [place], [id number] , [place] tel: [phone] [facility] No Information 4 No Information [facility], [address], [place], [place], [address] , [place] tel:[phone] [facility] No Information 3 No Information OFFICE/OUTPA TIENT VISIT, EST [facility], [address], [place], [place], [address] , [place] tel: [phone] [facility] diabetes (chief complaint) allergies (chief complaint) back pain (chief complaint) Diabetes with ketoacidosis, type I [juvenile type], not stated as uncontrolledAllerg ic reaction caused by a drugLumbagoRoutine general medical examination at a health care facility 3 No Information OFFICE/OUTPA TIENT VISIT, [facility], [address], [place], [place], [address] , [place] tel: [phone] Helga Grimaldo rt eye problem (chief complaint) Diabetes mellitus without mention of complication, type II or unspecified type, not stated as uncontrolledHordeo lum externum 2 No Information OFFICE/OUTPA TIENT VISIT, [facility], [address], [place], [place], [address] , [place] tel: [phone] Helga Grimaldo diabetes (chief complaint) blisters on feet (chief complaint) preegnancy test (chief complaint) Diabetes with ketoacidosis, type I [juvenile type], not stated as uncontrolledDiabet es mellitus without mention of complication, type II or unspecified type, not stated as uncontrolled 2 No Information Family History Family Member Type Diagnosis Age At Onset No Information Payers Payer name Insurance type Covered republican ID Authoriza tion(s) No Information Social History Type Description Quantity Date Captured Comments Sex Female Smoking Status No Information Chief Complaint And Reason For Visit No Information Reason For Referral Reason For Referral No Information Plan Of Treatment Date Type Action Status Goal ALT. Due on due Goal BMP fasting. Due on 013 due Goal Lipid Panel. Due on 013 due Goal Hemoglobin A1C. Due on due Goal TSH. Due on due Goal AST. Due on due History Of Present Illness Encounter Date Complaint History Of Prese nt Illness No Information Functional Status Date Functional Assessmen t No Information Instructions Date Instruction Additional Infor camilo Continue current medication Reviewed medications Change medication Patient understood and made info rmed decision Assessments Type Assessment Date No Information Patient Care Teams Name Effective Dates (start - stop) Status Members No Information
--- NOTE | ~2025-08-05 | XR_ITS ---
EXAMINATION: XR foot RT min 3V, 08/05/2025 16:36 CDT HISTORY: ACUTE PAIN. COMPARISON: No comparisons available. Findings: No acute fracture or malalignment. No significant degenerative changes. Soft tissues unremarkable. Impression: No acute fracture or malalignment. Reviewed, dictated and finalized at location P. Impression: No acute fracture or malalignment.
--- NOTE | ~2025-08-05 | XR_ITS ---
EXAMINATION: XR ankle RT 2V, 08/05/2025 16:46 CDT HISTORY: PAIN. COMPARISON: No comparisons available. Findings: No acute fracture or malalignment. No significant degenerative changes. Soft tissues unremarkable. Impression: No acute fracture or malalignment. Reviewed, dictated and finalized at location P. Impression: No acute fracture or malalignment.
--- OUTSIDE RECORDS SUMMARY | 2025-08-05 17:01 | XMS_ITS | Clinical Summary ---
Author Organization [facility] [employer] Address [address] [place] [address] Care Team Providers Care Chemistry Instructor Name Role Phone Radha Lisa APRN-SOCIAL MEDIA SR STRATEGY MANAGER Primary Care Provider [phone] Source Comments [facility],non-owned Affiliates and Associated Physician Practices is amultiple site organization consisting of ambulatory clinics and hospital sitesin [place], [place] and [place]. This disclosure is being madepursuant to the Care Everywhere program and may not contain all information available regarding this patient. Last updated 18.[facility] Allergies Active Allergy Reactions Criticality Noted Date [...] 50 units/day 0 Active TRUEplus 5-Bevel Pen [place] 31G X 8 MM needle USE TO INJECT THREE TIMES DAILY DIRECTED 3 Active methotrexate 2.5 MG tablet TAKE 4 TABLET BY MOUTH FOR WEEK 1, THEN 5 TABLET BY MOUTH EVERY WEEK 30 tablet 1 4 Active folic acid (Folvite) 1 MG tablet TAKE 1 TABLET BY MOUTH DAILY 30 tablet 5 5 Active Social History Tobacco Use Types Packs/Day Years Used Date Smoking Tobacco: Former Smokeless Tobacco: Former Tobacco Cessation:Counseling Given: No Comments Unknown Sex and Gender Information Value Date Recorded Sex Assigned at Not on file Legal Sex Female 10:51 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 Gender Identity Not on file Sexual Orientation Not on file Last Filed Vital Signs Vital Sign Reading Time Taken Comments Blood Pressure 118/74 11/25/2023 1:40 PM INCISING MACHINE OPERATOR Pulse 83 11/25/2023 1:40 PM INCISING MACHINE OPERATOR Temperature - - Respiratory Rate - - Oxygen Saturation - - Inhaled Oxygen Concentration - - Weight 61.1 kg (134 lb 9.6 oz) 11/25/2023 1:40 P M INCISING MACHINE OPERATOR Height 162.6 cm (5' 4) 11/25/2023 1:40 PM INCISING MACHINE OPERATOR Body Mass Index 23.1 11/25/2023 1:40 PM INCISING MACHINE OPERATOR Plan of Treatment Health Maintenance Due Date Last Done Comments [...] 19+ 3-dose series) 1994 PAP SMEAR 1996 DEPRESSION SCREENING 11/07/2024 COVID-19 VACCINE (2023-2 5 season) 2025 INFLUENZA VACCINE (#1) 2025 ZOSTER VACCINE (1 [...] patient's age to complete this topic [place] [address] [place] [address] MEDICAID Care Teams Chemistry Instructor Relationship Specialty Start Date End Date Radha Lisa APRN-EMMANUEL [address] [place] [address] PCP - General Nurse Practitioner Family 11/25/23
--- OUTSIDE RECORDS SUMMARY | 2025-08-05 17:01 | XMS_ITS | Clinical Summary ---
Author Organization [facility] Address [address] [facility] [address] [place] [address] Phone Care Team Providers Care Computational Physicist Name Role Phone Radha Lisa APRN, BEAUTY CULTURE TEACHER Primary Care Provider [phone] Nick Balderrama MD Unavailable Eugenia Roger APRN, BEAUTY CULTURE TEACHER Unavailable Allergies Active Allergy Reactions Criticality Noted Date Comments Hydrocodone Palpitations Low 03/27/2020 Ibuprofen Swelling Medium 03/27/2020 Latex Rash 06/01/2024 Penicillin V Potassium Other (see Comments) Medications gabapentin (NEURONTIN) 300 MG Capsule Take 300 mg by mouth 2 times daily. 08/15/20 20 Active meclizine (ANTIVERT) 25 MG Tablet Take 12.5 mg by mouth. 03/30/20 20 Active oxyCODONE-acet aminophen (PERCOCET) 5-325 MG Tablet Take 1 Tablet by mouth. 09/30/20 20 Active traMADol (ULTRAM) 50 MG Tablet Take 50 mg by mouth. 11/06/20 20 Active OneTouch Ultra Strip 4 times a day 400 Each 3 09/02/20 23 Active ondansetron (ZOFRAN-ODT) 4 MG TABLET DISPERSIBLE Take 1 Tablet by mouth every 8 hours as needed for Nausea - 1st line. 20 Tablet 11/01/20 23 Active albuterol 108 (90 Base) MCG/ACT Aerosol Solution take 2 Puffs by inhalation every 6 hours as needed for Cough. 18 g 11/01/20 23 Active Continuous Glucose Workforce Consultant (Dexcom G7 Workforce Consultant) Device Check blood glucose before each meal and at bedtime 1 Each 03/01/20 24 Active methotrexate 2.5 MG Tablet once a week 5 tabs 03/01/20 24 Active folic acid (FOLVITE) 1 MG Tablet Take 1,000 mcg by mouth daily. 03/29/20 24 Active insulin glargine (Lantus SoloStar) 100 UNIT/ML Solution Pen-injector 9 units twice a day if insulin pump doesn't work 15 mL 1 09/04/20 24 Active Insulin Pen Needle (Pen [place]) 32G X 4 MM Misc Up to 4 times a day 100 Each 1 10/25/20 24 Active Insulin Lispro, 1 Unit Dial, 100 UNIT/ML Solution Pen-injector PER INSULIN PUMP SETTINGS, UP TO 50 UNITS/DAY 45 mL 1 07/15/20 25 Active Continuous Glucose Sensor (Dexcom G7 Sensor) Misc Change every 10 days 9 Each 1 07/15/20 25 Active Insulin Lispro, 1 Unit Dial, 100 UNIT/ML Solution Pen-injector Per insulin pump settings, up to 50 units/day 45 mL 1 10/25/20 24 025 Discontinued Continuous Glucose Sensor (Dexcom G7 Sensor) Misc Change every 10 days 9 Each 1 03/11/20 25 025 Discontinued(Re order) Active Problems Problem Noted Date Diagnosed Date Colon polyp 06/08/2024 Type 1 diabetes mellitus with diabetic polyneuro eileen 12/18/2023 Encounters Date Type Department Care Team Description 07/15/2025 Refill [facility] - Endocr[facility]ology - [place] [address] [place] [address] Nick Balderrama MD Medication Refill 07/14/2025 Refill [facility] - [facility]ology - [place] [address] [place] [address] Nick Balderrama MD Medication Refill from Last [...] Care Team (Late st Contact Info) Description 08/19/2025 3:45 PM CDT Office Visit [facility] - Endocrinology - [place] [address] [place] [address] Nick Balderrama MD [address] [address] Health Maintenance Due Date Last Done Comments [...] 1 diabetes mellitus with diabetic polyneuropathy (HCC) REX SCREENING BILATERAL DIGITAL W CAD W ESTUARDO Routine 11/15/2024 11:55 AM C SOFTWARE DEVELOPER Encounter for screening mammogram for malignant neoplasm of breast CMP (COMPREHENSIVE METABOLIC PANEL) STAT 11/01/2023 12:44 AM C SOFTWARE DEVELOPER from Last 3 Months or Most Recently Relevant to Health Maintenance Results * (ABNORMAL) POCT GLYCOSYLATED HEMOGLOBIN (04/04/2025 2:51 PM CDT) HGB-A1C 8.2(A) 4 - 6 % Blood 04/04/2025 2:51 PM CDT us Nick Balderrama MD POINT OF CARE TESTING (MANUAL) F inal Result * REX SCREENING BILATERAL DIGITAL W CAD W ESTUARDO (11/15/2024 11:55 AM C SOFTWARE DEVELOPER) Anatomical Region Laterality Modality breast Bilateral Mammography 11/15/2024 11:4 9 AM C SOFTWARE DEVELOPER Narrative 11/16/2024 1:05 PM C SOFTWARE DEVELOPER - REX SCREENING BILATERAL DIGITAL W CAD [...] exam. Electronically signed by: Dara kinsey/peter:11/16/2024 12:13:50 Associate Dentist(s): RT Linnette(R)(M), [facility] letter sent: Normal Exam Reading location: [facility] Mammogram BI-RADS: Category 1: Negative Procedure Note [...] exam. Electronically signed by: Dara kinsey/peter:11/16/2024 12:13:50 Associate Dentist(s): RT Linnette(R)(M), [facility] letter sent: Normal Exam Reading location: [facility] Mammogram BI-RADS: Category 1: Negative us Tresa Krishnamurthy MD IMG MAMMO ORDERABLES Final Re sult * (ABNORMAL) CMP (11/01/2023 12:44 AM C SOFTWARE DEVELOPER) SODIUM 133(L) 136 - 145 mmol/L 11/01/2023 1:19 AM [facility] POTASSIUM 4.2 3.5 - 5.1 mmol/L 11/01/2023 1:19 AM [facility] CHLORIDE 93(L) 98 - 107 mmol/L 11/01/2023 1:19 AM [facility] CO2, VENOUS 19(L) 22 - 30 mmol/L 11/01/2023 1:19 AM [facility] ANION GAP 25.2(H) <18.0 mmol/L 11/01/2023 1:19 AM [facility] GLUCOSE 330(H) 70 - 99 mg/dL 11/01/2023 1:19 AM [facility] BUN 9 5 - 18 mg/dL 11/01/2023 1:19 AM [facility] CREATININE, BLOOD 0.98 0.60 - 1.00 mg/dL 11/01/2023 1:19 AM [facility] BUN/CREATININE RATIO 9(L) 12 - 20 ratio 11/01/2023 1:19 AM [facility] TOTAL PROTEIN 7.6 6.3 - 8.2 g/dL 11/01/2023 1:19 AM [facility] ALBUMIN 4.0 3.5 - 5.0 g/dL 11/01/2023 1:19 AM [facility] A/G RATIO 1.1 1.0 - 2.2 11/01/2023 1:19 AM [facility] CALCIUM 9.5 8.7 - 10.5 mg/dL 11/01/2023 1:19 AM [facility] T BILI 0.6 0.2 - 1.2 mg/dL 11/01/2023 1:19 AM [facility] SGOT (AST) 23 5 - 34 U/L 11/01/2023 1:19 AM [facility] SGPT (ALT) 14 0 - 55 U/L 11/01/2023 1:19 AM [facility] ALKALINE PHOSPHATASE 73 40 - 150 U/L 11/01/2023 1:19 AM [facility] GFR, ESTIMATED >60 >=60 11/01/2023 1:19 AM [facility] Comment: Creatinine Clearance is the preferred criteria for selecting drug dose adjustments in renally impaired patients. The GFR is provided as additional pertinent clinical information. GFR is reported in mL/min/1.73 sq m. Calculation based on the Chronic Kidney Disease Epidemiology Collaboration (CKD- EPI) equation refit without adjustment for race. GFR, EST. >60 >=60 023 1:19 AM [facility] GFR, EST. NONAFRICAN >60 >=60 11/01/2023 1:19 AM [facility] Blood Venipuncture / Unknown 11/01/2023 12:44 AM C SOFTWARE DEVELOPER 11/01/2023 12:54 AM C SOFTWARE DEVELOPER Wayne Lawler MD CHEMISTRY ORDERABLES Final Resu lt [facility] [address] [place] [address] from Last 3 Months or Most Recently Relevant to Health Maintenance Insurance MEDICAID [place] Care Teams Computational Physicist Relationship Specialty Start Date End Date Radha Lisa APRN, BEAUTY CULTURE TEACHER PCP - General Family Medicine 06/30/23 Nick Balderrama MD [address] [address] Consulting Physician Endocrinology 08/19/23 Eugenia Roger APRN, BEAUTY CULTURE TEACHER [address] [place] [address] Nurse Practitioner Advanced Practice Nurse 05/01/24
== END ==
PROVIDERS: PCP Nurse Practitioner Family; Visit Provider Nurse Practitioner Family
DX: M79.671 Pain in right foot (principal)
CPT/HCPCS: 73600; 73630

== ENCOUNTER 2025-10-12 10:16 | Emergency (ER) | payer BC, SELFPAY ==
--- OUTSIDE RECORDS SUMMARY | 2025-10-12 10:19 | XMS_ITS | Clinical Summary ---
Author Organization [facility] Address [address] [facility], [facility] [address] [place] [address] Phone Care Team Providers Care Sas Programmer Name Role Phone Radha Lisa APRN, EDUCATION AND DEVELOPMENT MANAGER Primary Care Provider [phone] Nick Balderrama MD Unavailable Eugenia Roger APRN, EDUCATION AND DEVELOPMENT MANAGER Unavailable Allergies Active Allergy Reactions Criticality Noted [...] Cough. 18 g 3 Active Continuous Glucose Mannequin Refinisher (Dexcom G7 Mannequin Refinisher) Device Check blood glucose before each meal and at bedtime 1 Each 4 Active methotrexate 2.5 MG Tablet once a week 5 tabs 4 Active folic acid (FOLVITE) 1 MG Tablet Take 1,000 mcg by mouth daily. 4 Active insulin glargine (Lantus SoloStar) 100 UNIT/ML Solution Pen-injector 9 units twice a day if insulin pump doesn't work 15 mL 1 4 Active Insulin Pen Needle (Pen Middleton) 32G X 4 MM Misc Up to 4 times a day 100 Each 1 4 Active Insulin Lispro, 1 Unit Dial, 100 UNIT/ML Solution Pen-injector PER INSULIN PUMP SETTINGS, UP TO 50 UNITS/DAY 45 mL 1 5 Active Continuous Glucose Sensor (Dexcom G7 Sensor) Misc Change every 10 days 9 Each 1 5 Active Active Problems Problem Noted Date Diagnosed Date Colon polyp 06/08/2024 Type 1 diabetes mellitus with diabetic polyneuro eileen 12/18/2023 Encounters Date Type Department Care Team Description 07/15/2025 Refill [facility] Endocr[facility]ology [facility] [address] [place] [address] Nick Balderrama MD Medication Refill 07/14/2025 [facility] [address] [place] [address] Nick Balderrama MD Medication Refill from Last [...] Care Team (Late st Contact Info) Description 11/26/2025 3:45 PM AUTOMOTIVE PARTS COUNTER ASSOCIATE Office Visit [facility] - Endocrinology - [place] [address] [place] [phone] Nick Balderrama MD [address] [address] Health Maintenance Due Date Last Done Comments Hepatitis C Virus (HCV) Screening 1975 SARS-COV-2 Immunization (#1) 1980 Hepatitis B Immunization (1 of 3 - 19+ 3-dose series) 1994 Pneumococcal Immunization (50+ years) (1 of 2 - PCV) 1994 Zoster Immunization (1 of 2) 1994 Pap Smear 1996 Cervical Cancer Screening (CCS) 2005 HPV/Cotest 2005 Cologuard 2020 Immunochemical Fecal Occult Blood 2020 Diabetes: Nephropathy Screening 11/01/2024 11/01/2023 Diabetes: Eye Exam 12/07/2024 12/07/2023 Influenza Immunization (#1) 2025 Diabetes: Foot Exam 07/12/2025 07/12/2024, Respiratory Syncytial Virus (RSV) Immunization (Adult) (1 - Risk 50-74 years 1-dose series) 2025 Diabetes: Hemoglobin A1c 10/05/2025 025, 10/25/2024, 07/12/2024, Additional history exists Mammogram 11/15/2025 11/15/2024 Colonoscopy 06/08/2034 06/08/2024, 06/08/2024 Colorectal Cancer Screening 06/08/2034 Discussion re Starting/Frequency of Mammograms Discontinued 11/15/2024 DTaP/Tdap/Td Immunization Discontinued 03/11/2025 TdaP Immunization [...] 1 diabetes mellitus with diabetic polyneuropathy (HCC) [facility] SCREENING BILATERAL DIGITAL W CAD W ESTUARDO Routine 11/15/2024 11:55 AM AUTOMOTIVE PARTS COUNTER ASSOCIATE Encounter for screening mammogram for malignant neoplasm of breast GI IMAGING - COLONOSCOPY Routine 06/08/2024 8:27 AM CDT CMP (COMPREHENSIVE METABOLIC PANEL) STAT 11/01/2023 12:44 AM AUTOMOTIVE PARTS COUNTER ASSOCIATE from Last 3 Months or Most Recently Relevant to Health Maintenance Results * (ABNORMAL) POCT GLYCOSYLATED HEMOGLOBIN (04/04/2025 2:51 PM CDT) HGB-A1C 8.2(A) 4 - 6 % Blood 04/04/2025 2:51 PM CDT us Nick Balderrama MD POINT OF CARE TESTING (MANUAL) F inal Result * REX SCREENING BILATERAL DIGITAL W CAD W ESTUARDO (11/15/2024 11:55 AM AUTOMOTIVE PARTS COUNTER ASSOCIATE) Anatomical Region Laterality Modality breast Bilateral Mammography 11/15/2024 11:4 9 AM AUTOMOTIVE PARTS COUNTER ASSOCIATE Narrative 11/16/2024 1:05 PM AUTOMOTIVE PARTS COUNTER ASSOCIATE - REX SCREENING BILATERAL DIGITAL W CAD [...] exam. Electronically signed by: Dara kinsey/peter:11/16/2024 12:13:50 Home Restoration Service Supervisor(s): RT Linnette(R)(M), [facility] letter sent: Normal Exam Reading location: [...] exam. Electronically signed by: Dara kinsey/peter:11/16/2024 12:13:50 Home Restoration Service Supervisor(s): RT Linnette(R)(M), [facility] letter sent: Normal Exam Reading location: [facility] [place] Mammogram BI-RADS: Category 1: Negative Tresa Krishnamurthy MD IMG MAMMO ORDERABLES Final Re sult * GI IMAGING - COLONOSCOPY (06/08/2024 8:27 AM CDT) Freddie Correa MD IMG DIAGNOSTIC ORDERABLES Final Result * (ABNORMAL) CMP (11/01/2023 12:44 AM AUTOMOTIVE PARTS COUNTER ASSOCIATE) SODIUM 133(L) 136 - 145 mmol/L 11/01/2023 1:19 AM AUTOMOTIVE PARTS COUNTER ASSOCIATE [facility] POTASSIUM 4.2 3.5 - 5.1 mmol/L 11/01/2023 1:19 AM [facility] CHLORIDE 93(L) 98 - 107 mmol/L 11/01/2023 1:19 AM [facility] CO2, VENOUS 19(L) 22 - 30 mmol/L 11/01/2023 1:19 AM [facility] ANION GAP 25.2(H) <18.0 mmol/L 11/01/2023 1:19 AM [facility] GLUCOSE 330(H) 70 - 99 mg/dL 11/01/2023 1:19 AM [facility] BUN 9 5 - 18 mg/dL 11/01/2023 1:19 AM [facility] CREATININE, BLOOD 0.98 0.60 - 1.00 mg/dL 11/01/2023 1:19 AM [facility] BUN/CREATININE RATIO 9(L) 12 - 20 ratio 11/01/2023 1:19 AM [facility] TOTAL PROTEIN 7.6 6.3 - 8.2 g/dL 11/01/2023 1:19 AM [facility] ALBUMIN 4.0 3.5 - 5.0 g/dL 11/01/2023 1:19 AM [facility] A/G RATIO 1.1 1.0 - 2.2 11/01/2023 1:19 AM [facility] CALCIUM 9.5 8.7 - 10.5 mg/dL 11/01/2023 1:19 AM [facility] T BILI 0.6 0.2 - 1.2 mg/dL 11/01/2023 1:19 AM [facility] SGOT (AST) 23 5 - 34 U/L 11/01/2023 1:19 AM [facility] SGPT (ALT) 14 0 - 55 U/L 11/01/2023 1:19 AM [facility] ALKALINE PHOSPHATASE 73 40 - 150 U/L 11/01/2023 1:19 AM [facility] GFR, ESTIMATED >60 >=60 11/01/2023 1:19 AM [facility] Comment: Creatinine Clearance is the preferred criteria for selecting drug dose adjustments in renally impaired patients. The GFR is provided as additional pertinent clinical information. GFR is reported in mL/min/1.73 sq m. Calculation based on the Chronic Kidney Disease Epidemiology Collaboration (CKD- EPI) equation refit without adjustment for race. GFR, EST. >60 >=60 023 1:19 AM [facility] GFR, EST. NONAFRICAN >60 >=60 11/01/2023 1:19 AM [facility] Blood Venipuncture / Unknown 11/01/2023 12:44 AM AUTOMOTIVE PARTS COUNTER ASSOCIATE 11/01/2023 12:54 AM AUTOMOTIVE PARTS COUNTER ASSOCIATE Wayne Lawler MD CHEMISTRY ORDERABLES Final Resu lt [facility] [address] [place] [address] from Last 3 Months or Most Recently Relevant to Health Maintenance Insurance MEDICAID [place] Care Teams Sas Programmer Relationship Specialty Start Date End Date Radha Lisa APRN, EMMANUEL PCP - General Family Medicine 06/30/23 Nick Balderrama MD [address] [phone] Consulting Physician Endocrinology 08/19/23 Eugenia Roger APRN, EDUCATION AND DEVELOPMENT MANAGER [address] [place] [address] Nurse Practitioner Advanced Practice Nurse 05/01/24
--- OUTSIDE RECORDS SUMMARY | 2025-10-12 10:19 | XMS_ITS | Continuity of Care Document ---
Author Organization [facility] Address [address] [place] [address] Care Team Providers Care Other Sales Support Worker Name Role Phone GREENWOOD, RADHA Primary Care Provider RANJANA JORDAN Institution Director Unavailable Assessment No assessment recorded. Plan of Treatment Reminders Order Date Submit Date Provider Last Modified By Organization Details Last Modified Time Details Appointments None record ed. Lab None record ed. Referral None record ed. Procedures None record ed. Surgeries None record ed. Imaging XR, foot, 3 or more view 025 08/05/20 25 NATHAN Not available 5 18:21:33 XR, ankle, 2 view 025 08/05/20 25 NATHAN Not available 5 11:23:50 Medication Orders None record ed. Patient TargetsNo targets recorded. Patient Instructions Encounter Date Encounter Id Patient Instructions Last Modified By Organization Details Last Modified Time 08/05/2025 [id number] Rest To rest the ankle, stay off your feet. Ice Apply a cold gel pack, bag of ice, or bag of frozen vegetables on your ankle every 1 to 2 hours, for 15 minutes each time. Put a thin towel between the ice (or other cold object) and your skin. Use the ice (or other cold object) for at least 6 hours after your injury. Some people find it helpful to ice longer, even up to 2 days after their injury. Compression Compression basically means pressure. You want to have your ankle under slight pressure by having it wrapped in an elastic compression bandage. This helps reduce swelling and supports the ankle. Your doctor or nurse will show you how to wrap your ankle. It's important that you do not use too much pressure and cut off the blood flow to your foot. Elevation Elevation means you should keep your foot raised up above the level of your heart. To do this, you can put your foot on some pillows or blankets while you are lying down, or on a table or chair while you are sitting. Not available 08/06/2025 08:56:27 Plan pending lab/imaging results. Not available 08/06/2025 08:56:08 Reason for Referral None Reported. Results Created Date Observation Date Name Description Value Unit Range Abnormal Flag Note LastModifiedBy Organization Detail LastModifiedTime 08/05/20 25 08/05/2025 XR, foot, 3 or more view No observ ation record ed. NATHAN Patel [address], [place], [address], 08/06/2025 14:07:10 08/06/20 25 08/05/2025 XR, ankle , 2 view No observ ation record ed. NATHAN Patel [address], [place], [address], 08/07/2025 13:21:24 Result Notes None recorded. Problems Name Problem SNOMED Code Status Onset Date Resolution Date Notes Provider Name and Address Organization Details Recorded Time Neuropathy due to diabetes mellitus 746544015 Active 020 Radha Greenwood APN, JULIA-C Attn: Erick g,[address] [facility], [place], [address], [facility] - [facility] 5 11:24:49 Type 1 diabetes mellitus 16964705 Active 020 Radha Greenwood APN, JULIA-C Attn: Erick g,[address] [facility], [place], [address], [facility] - [facility] 5 11:24:49 Tobacco user 106815268 Active 020 Radha Greenwood APN, JULIA-C Attn: Erick g,[address] [facility], [place], [address], [facility] - [facility] 5 11:24:49 Pain of multiple joints 37350383 Active 020 Radha Greenwood APN, PULLER OUT-C Attn: Erick yost,[address] [facility], [place], [address], [facility] 5 11:24:49 Anti-nuclear factor detected 827714109 Active 020 Radha Greenwood APN, PULLER OUT-C Attn: Erick yost,[address] [facility], [place], [address], [facility] 5 11:24:49 Problem Notes None recorded. Procedures Surgical History Date Name Laterality Status Provider Name and Address Organization Details Recorded Time 06/08/20 24 colonoscopy completed GABRIELA Gotti [facility] 11/22/2024 11:14:25 delivery completed Lucero Burnett [facility] 09/11/2020 15:32:14 Carpal tunnel surgery completed Lucero Burnett MA [facility] 09/11/2020 15:32:35 Cholecystectomy completed Lucero Burnett MA [facility] 09/11/2020 15:32:42 release of trigger finger completed Lucero Burnett MA [facility] 09/11/2020 15:32:53 Imaging Results None recorded. Procedure Notes None recorded. Medical Equipment None Reported. Allergies Allergen ID Allergen Name Allergen Category Reaction Reaction Severity Criticality Documentation Date Start Date Code Code System Note Provider Name and Address Organization Details Recorded Time 559647 hydrocodo ne Not available palpitati ons mild Not available 09/11/20202019 5489 RxNorm Radha Greenwood APN, P[employer]ER [employer]-C Attn: Erick ritika,[address] [facility], [place], [address], [facility] 5 11:23:48 477362 ibuprofen medicatio n Not available Not available Not available 09/11/20202019 5640 RxNorm Other react ions and sever ities : 'Swel ling - Moder ate'. Radha Greenwood APN, PULLER OUT-C Attn: Tiffaniesadie ritika,[address] [facility], [place], [address], [place] - [facility] 5 11:23:48 913517 Product containin g penicilli n (product) medicatio n tachycard ia Not available Not available 06/23/2023 69150 8001 SNOMED Ursula Montes null, [place] - [facility] 3 09:33:55 401925 cephalexi n medicatio n other Not available unabletoasse ss 11/29/20242024 2231 RxNorm pt repor elida ma and yobani Rabago LPN null, [place] - [facility] 5 17:19:39 Medications Name Sig Start Date Stop Date Status Note LastModified by Organization Details LastModified Time Prescript ion - Prior Authoriza tion Request 01/11 completed Not Available Not Available Not Available clindamyc in HCl 300 mg capsule TAKE 1 CAPSULE BY MOUTH EVERY 6 HOURS FOR 7 DAYS 03/11 completed Not Available Not Available Not Available azithromy ky 250 mg tablet TK 2 TS PO ON DAY 1, THEN TK 1 T PO D FOR 4 DAYS 08/05 completed Not Available Not Available Not Available Lidocaine Viscous 2 % mucosal solution APPLY 1 APPLICAT ION TO AFFECTED MUCOSAL AREA TWICE DAILY NEEDED PAIN FOR 3 DAYS 11/22 completed Not Available Not Available Not Available fluconazo le 150 mg tablet TAKE 1 TABLET BY MOUTH 1 TIME 06/23 completed Not Available Not Available Not Available prednison e 20 mg tablet TAKE 2 TABLETS BY MOUTH DAILY FOR 4 DAYS active Not Available Not Available No t Available Lantus U-100 Insulin 100 unit/mL subcutane [...] completed Not Available Not Available Not Available OneTouch Ultra Test strips TEST FOUR TIMES DAILY [...] active Not Available Not Available Not Available OneTouch Ultra Blue Test Strip USE TO TEST FIVE TIMES DAILY 06/23 completed Not Available Not Available Not Available FreeStyle Snehal 2 Sensor kit CHANGE EVERY 14 DAYS DIRECTED active Not Available Not Available No t Available Dexcom G7 Studio Artist CHECK BLOOD GLUCOSE BEFORE EACH MEAL AND AT BEDTIME active Not Available Not Available No t Available Dexcom G7 Sensor device CHANGE EVERY 10 DAYS active Not Available Not Available No t Available Vitals Date Recorded Body height Body mass index (BMI) Body weight Oxygen saturation Body temperature Heart rate Respiratory rate Systolic And Diastolic Provider Name and Address Organization Details Last Updated DateTime 5 162.56 cm 25.5 kg/m2 50110.4 2 g 98 % 97.7 [degF] 96 /min 16 /min 125/84 mm[Hg] Jelena Lopez MA [facility] 5 16:43:11 Social History Question Answer Notes LastModified by Organizat ion Details LastModified Time Tobacco Smoking Status Former Smoker quit 10/2023 GABRIELA Gotti, [place] - [facility] 01/12/2024 10:21:45 Do You Have An Advance [...] Have You Had Close Contact With A Laboratory-jim bansal COVID-19 While That Case Was Ill? No [...] Smoke? 0.25 PPD 6 Cigs A Day. [email or web address] Information not available 06/23/2023 General Stress Level Low Information not available 09/11/2020 Do You Use Sunscreen Routinely? Yes Information not available 09/11/2020 Has Tobacco Cessation Counseling Been Provided? Yes [email or web address] Information not available 06/23/2023 On What Date Was Tobacco Cessation Counseling Provided? 03/11/2025 Information not available 03/11/2025 How Many Years Have You Smoked Tobacco? 12 06/23/23 [email or web address] Information not available 06/23/2023 How Many Years Have You Used E-cigarettes Or Vape? 2024 Information not available 11/22/2024 Sex: Female Functional Status Question Answer Note LastModified by Organization Details LastModified Time Do you use any illicit or recreational drugs? Yes aline [email or web address] Information not available 06/23/2023 Do you or [...] 03/11/2025 Are you able to care for yourself independently? Yes Information not available 06/24/2021 What is [...] anxious, or unable to sleep at night)? [id number] Information not available 03/11/2025 Family History Relationship [...] 2019 15:34:23 Mother Malignant neoplasm of skin [email or web address] Not available 06/23 09:36:07 Medical History Condition Response Coronary Artery Disease N Other N Atrial Fibrillation N High Blood Pressure N Kidney or Bladder Problems N Thyroid Problems N GI Problems N Depression N COPD N Blood Clots N Eating Disorder N Skin Problems N Anemia N Heart Attack (CA) N Anxiety Disorder Y Diabetes Y Muscle, Joint, or Bone Problems N Seizures/Epilepsy N Acid Reflux (GERD) N Cancer N Stroke N Asthma N Allergies Y ADHD N Substance Abuse N High Cholesterol [...] Address Organization Details Recorded Time Tdap 03/11/2025 fermin Lentz MA [facility] 03/11/2025 11:34:09 Past Encounters Encounter ID Performer Location Encounter Start Date Encounter Closed Date Diagnosis/Indication Diagnosis SNOMED-CT Code Diagnosis ICD10 Code Diagnosis IMO Codes Diagnosis Note [id number] MD [facility] ([facility]ult [facility] [address] [place] [address] 08/05/2025 16:33:36 08/07/2025 17:35:09 Foot pain 72067385 M79.671 81210646 Bruising to lateral aspect of foot/ankle , also on top of foot-advis ed patient to get x-rays, avoid weight-kirti ring until confirmed no fracture-O TC ibuprofen or Tylenol, ice Health Concerns Section Related Observation LastModified by Organization Detai ls LastModified Time None Recorded Concern Status LastModified by Organization Details LastModified Time None Recorded Payers Encounter Date Sequence Insurance Name Policy Number Policy De La Cruz Covered Member ID De La Cruz Member ID Guarantor Name 08/05/2025 1 [facility] - DOS ON OR AFTER 2025 (MEDICAID REPLACEMENT - HMO) [id number] Eugenia Hopson [id number] Eugenia Skyler Notes Date Note Type Note Provider Name and Address Organization Details Recorded Time 08/05/2025 text/html ROS as noted in the HPI Fell on Tuesday at work - no swelling but painful - RT outer foot pain. Patient is here with complaints of right foot/ankle pain, last week on Tuesday tripped over a piece of furniture and twisted her ankle. Was able to bear weight over the weekend however when she woke this morning, noticed that her foot had turned color and was experiencing more pain. Did not seek medical care over the weekend or through workman's comp provider.Has not used ice, heat or any [id number] medications Radha Greenwood APN, PULLER [employer]-C Attn: Accounting[address] [facility], [place], [address], [facility] - [facility] 08/06/2025 08:57:40 OBGyn Episode No OBEpisode recorded.
--- OUTSIDE RECORDS SUMMARY | 2025-10-12 10:19 | XMS_ITS | Clinical Summary ---
Author Organization [facility] Address [address] [place] [address] Care Team Providers Care Correctional Guard Name Role Phone Radha Lisa APRN-RESIDENT IN DIAGNOSTIC RADIOLOGY Primary Care Provider [phone] Source Comments [facility],non-owned Affiliates and Associated Physician Practices is amultiple site organization consisting of ambulatory clinics and hospital sitesin [place], [place], [place] and [place]. This disclosure is being madepursuant to the Care Everywhere program and may not contain all information available regarding this patient. Last updated 18.[facility] Allergies Active Allergy Reactions Criticality Noted Date [...] 50 units/day 0 Active TRUEplus 5-Bevel Pen Gamaliel 31G X 8 MM needle USE TO [...] on file Legal Sex Female 10:51 AM FILLER IN Gender Identity Not on file Sexual Orientation Not on file Last Filed Vital Signs Vital Sign Reading Time Taken Comments Blood Pressure 118/74 11/25/2023 1:40 PM FILLER IN Pulse 83 11/25/2023 1:40 PM FILLER IN Temperature - - Respiratory Rate - - Oxygen Saturation - - Inhaled Oxygen Concentration - - Weight 61.1 kg (134 lb 9.6 oz) 11/25/2023 1:40 P M FILLER IN Height 162.6 cm (5' 4) 11/25/2023 1:40 PM FILLER IN Body Mass Index 23.1 11/25/2023 1:40 PM FILLER IN Plan of Treatment Health Maintenance Due Date Last Done Comments COLOGUARD (AGES 45-75) - COL ON CA SCREENING 1975 COLON MONITORING 1975 COLONOSCOPY - COLON CA SCREENING 1975 CT COLONOGRAPHY - COLON CA SCREENING 1975 Colorectal Cancer Screening 1975 FIT - COLON CA SCREENING 1975 FLEX SIG - COLON CA SCREENING 1975 LIPID TESTING 1975 MAMMOGRAM 1975 COVID-19 VACCINE (#1) 1980 HIV SCREENING 1990 HEPATITIS C SCREENING 09/11/1993 DTAP/TDAP/TD VACCINES (1 - Tdap) 1994 HEPATITIS B VACCINE (1 of 3 - 19+ 3-dose series) 1994 Cervical Cancer Screening 1996 PAP SMEAR 1996 PAP with HPV 2005 DEPRESSION SCREENING 11/07/2024 INFLUENZA VACCINE (#1) 2025 PNEUMOCOCCAL VACCINE 50+ (1 of 1 - PCV) 2025 ZOSTER VACCINE (1 of 2) 2025 [...] patient's age to complete this topic [place] [address] MEDICAID Care Teams Correctional Guard Relationship Specialty Start Date End Date Radha Lias APRN-EMMANUEL [address] [place] [address] PCP - General Nurse Practitioner Family 11/25/23
--- OUTSIDE RECORDS SUMMARY | 2025-10-12 10:19 | XMS_ITS | Data Portability ---
Author Organization [facility] Address [address] [place] [address] Care Team Providers Care Pari Mutuel Ticket Seller Name Role Phone TIMO, RADHA Primary Care Provider [phone] RANJANA JORDAN Tender Labor Unavailable Assessment No assessment recorded. Plan of Treatment Reminders Order Date Submit Date Provider Last Modified By Organization Details Last Modified Time Details Appointments None recorded. Lab HbA1c (hemoglobin A1c), blood 2024 025 NATHAN [facility], [address] [facility], [place], [address], 12:12:32 microalbumi n/creatinin e, mass ratio, urine 2024 025 NATHAN [facility], [address] [facility], [place], [address], 12:12:29 TSH, ultra-sensi tive, serum 2024 025 NATHAN [facility], [address], [place], [address], 12:12:31 CMP, serum or plasma 2024 025 NATHAN [facility], [address], [place], [address], 12:12:24 lipid panel, serum 2024 025 NATHAN [facility], [address], [place], [address], 5 12:12:23 CBC 2024 025 NATHAN [facility], [address], [place], [address], 5 12:12:26 vaginal pathogens panel, ILIR+probe, vaginal fluid 2023 024 NATHAN [facility], [address], [place], [address], 4 18:35:49 Hepatitis C IgG Ab, qual, serum 2023 024 eemeryma [facility], [address], [place], [address], 4 16:13:54 HIV 1 + 2, meaningful use set 2023 024 eemeryma [facility], [address] [facility], [place], [address], 4 10:01:45 cytology report, thin prep, smear or scraping, cervical or vaginal 2023 024 NATHAN [facility], [address], [place], [address], 4 14:36:26 HbA1c (hemoglobin A1c), blood 2023 024 In-Office Order, Internal Use Only DO Not Attach Compendium DO Not Attach Compendium, Do Not Delete/merge, [id number] 4 10:47:48 Referral gastroenter ologist referral 2023 024 [email or web address] Augustine Jung MD, [address] [place], [address], 4 11:35:19 Procedures None recorded. Surgeries None recorded. Imaging XR, foot, 3 or more view 2024 025 NATHAN Not available 5 18:21:33 XR, ankle, 2 view 2024 025 NATHAN Not available 5 11:23:50 MAMMO, screening, digital, bilateral 2023 024 linnette Os ([facility]) Scheduling, [address] [place], [address], 4 17:03:03 Medication Orders cephalexin 500 mg capsule 2024 025 VIENNA [facility] #[id number], [address], [place], [place], [id number], 5 09:44:27 estradiol 0.01% (0.1 mg/gram) vaginal cream 2023 025 VIENNA [facility] #[id number], [address], [place], [place], [id number], 5 11:11:35 gabapentin 100 mg capsule 2023 024 [facility] #[id number], [address], [place], [place], [id number], 5 09:44:47 Patient TargetsNo targets recorded. Patient Instructions Encounter Date Encounter Id Patient Instructions Last Modified By Organization Details Last Modified Time 01/12/2024 [id number] tailbone injury: care instructions Not available 01/12/2024 [...] care: none Not available 01/12/2024 10:48:35 11/22/2024 [id number] Quitting Tobacco : Care Instructions Not available [...] with provider Not available 11/22/2024 11:37:12 03/11/2025 [id number] learning about type 1 diabetes Not available 03/11/2025 09:59:56 type 1 diabetes: care instructions [email or web address] Not available 03/11/2025 09:59:56 Continue all medications as prescribed. 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 bowel function Referring Physician: Radha Lisa, Family Medicine, Encounter Date: 01/12/2024 Results Created Date Observation Date Name Description Value Unit Range Abnormal Flag Note LastModifiedBy Organization Detail LastModifiedTime 01/12/20 24 01/12/2024 HbA1c (hemo globi n A1c), blood HbA1c 10.2 Not Available In-Office Order Internal Use Only DO Not Attach Compendium DO Not Attach Compendium, Do Not Delete/merge, [id number] 01/12/2024 10:37:38 03/01/20 24 03/03/2024 NUSWA B VAGIN ITIS PLUS (VG+) atopobium vaginae Low - 0 score Not Available [facility] ([facility]) [address] [place], [address], 03/04/2024 18:35:49 03/01/20 24 03/03/2024 NUSWA B VAGIN ITIS PLUS (VG+) bvab 2 Low - 0 score Not Available [facility] ([facility]) [address] [place], [address], 03/04/2024 18:35:49 03/01/20 24 03/03/2024 NUSWA B VAGIN ITIS PLUS (VG+) megasphaera 1 [...] Drug Admin istra tion. Not Available [facility] ([facility]) [address] [place], [address], 03/04/2024 18:35:49 03/01/20 24 03/03/2024 NUSWA B VAGIN ITIS PLUS (VG+) valeria albicans, ILIR Negati ve negati ve Not Available [facility] ([facility]) [address] [place], [address], 03/04/2024 18:35:49 03/01/20 24 03/03/2024 NUSWA B VAGIN ITIS PLUS (VG+) valeria glabrata, ILIR Negati ve negati ve Not Available [facility] ([facility]) [address] [place], [address], 03/04/2024 18:35:49 03/01/20 24 03/04/2024 NUSWA B VAGIN ITIS PLUS (VG+) trich vag by ILIR Negati ve negati ve Not Available [facility] ([facility]) [address] [place], [address], 03/04/2024 18:35:49 03/01/20 24 03/04/2024 NUSWA B VAGIN ITIS PLUS (VG+) chlamydia trachomatis, ILIR Negati ve negati ve Not Available [facility] ([facility]) [address] [place], [address], 03/04/2024 18:35:49 03/01/20 24 03/04/2024 NUSWA B VAGIN ITIS PLUS (VG+) neisseria gonorrhoeae, ILIR Negati ve negati ve Not Available [facility] ([facility]) [address] [place], [address], 03/04/2024 18:35:49 03/01/20 24 03/03/2024 IGP, APTIM A HPV, RFX 16/18 ,45 HPV aptima Negati ve negati ve This nucle ic acid ampli ficat ion test detec ts fourt een high- risk HPV types (16,1 8,31, 33,35 ,39,4 5,51, 52,56 ,58,5 9,66, 68) witho ut diffe renti ation . Not Available [facility] ([facility]) [address] [facility], [place], [address], 03/05/2024 14:36:26 03/01/20 24 03/05/2024 IGP, APTIM A HPV, RFX 16/18 ,45 diagnosis: Commen t NEGAT LUCRECIA FOR INTRA EPITH ELIAL LESIO N OR DORA TURPIN . CELLU TIA AVELAR ES ASSOC IATED WITH INFLA MMATI ON ARE PRESE NT. Not Available [facility] ([facility]) [address] [facility], [place], [address], 03/05/2024 14:36:26 03/01/20 24 03/05/2024 IGP, APTIM A HPV, RFX 16/18 ,45 specimen adequacy: Commen t Satis facto ry for evalu ation . Endoc ervic al and/o r squam ous metap lasti c cells (endo cervi prasanth compo nent) are prese nt. Not Available [facility] ([facility]) [address] [place], [address], 03/05/2024 14:36:26 03/01/20 24 03/05/2024 IGP, APTIM A HPV, RFX 16/18 ,45 clinician provided ICD10: Yessy de la garza L29.3 Z11.5 9 Z11.4 Z12.4 Not Available [facility] ([facility]) [address] [facility], [place], [address], 03/05/2024 14:36:26 03/01/20 24 03/05/2024 IGP, APTIM A HPV, RFX 16/18 ,45 performed by: Yessy Frank and-Sylvia Murrieta (ASCP ) Not Available [facility] ([facility]) [address] [place], [address], 03/05/2024 14:36:26 03/01/20 24 03/05/2024 IGP, APTIM A HPV, RFX 16/18 ,45 . . Not Available [facility] ([facility]) [address] [facility], [place], [address], 03/05/2024 14:36:26 03/01/20 24 03/05/2024 IGP, APTIM A HPV, RFX 16/18 ,45 note: Yessy de la garza The Pap smear is a scree josse [...] ts do occur . Not Available [facility] ([facility]) [address] [facility], [place], [address], 03/05/2024 14:36:26 03/01/20 24 03/05/2024 IGP, APTIM A HPV, RFX 16/18 ,45 test methodology: Yessy de la garza This liqui d based ThinP rep(R ) pap test was scree macy with the use of an image guide alivia systsandra m. Not Available [facility] ([facility]) [address] [facility], [place], [address], 03/05/2024 14:36:26 03/01/20 24 03/05/2024 IGP, APTIM A HPV, RFX 16/18 ,45 HPV genotype reflex Commen t Crite gudelia not met, HPV Genot ype not perfo rmed. Not Available [facility] ([facility]) [address] [facility], [place], [address], 03/05/2024 14:36:26 06/08/20 24 06/08/2024 Gluco se [Mass /volu me] in Blood glucose [mass/volume ] in blood 202 mg/dL low: 70mg/d Lhigh: 99mg/d L high GLUCO SE,BE DSIDE POCT 202 (H) 70 - 99 mg/dL 06/08 11:57 AM CDT [facility] Not Available Not Available 02/21/2025 13:18:02 [...] ate HCV infec tion. Not Available [facility] ([facility]) [address] [facility], [place], [address], 11/23/2024 07:37:47 11/22/19 25 11/23/2024 HCV ANTIB JOSE RFX TO QUANT PCR HCV Ab Non Reacti ve nonrea ctive Not Available [facility] ([facility]) [address] [facility], [place], [address], 11/23/2024 07:37:48 11/22/19 25 11/23/2024 HIV AB/P2 4 AG WITH REFLE X HIV Ab/P24 Ag screen Non Reacti ve nonrea ctive HIV-1 /HIV- 2 antib odies and HIV-1 p24 antig en were NOT detec elida. There is no labor atory evide nce of HIV infec tion. HIV Negat lucrecia Not Available [facility] ([facility]) [address] [facility], [place], [address], 11/23/2024 07:37:49 11/22/19 25 11/23/2024 LIPID PANEL cholesterol, total 194 mg/dL 100-19 9 Not Available [facility] ([facility]) [address] [facility], [place], [address], 11/23/2024 12:12:23 11/22/19 25 11/23/2024 LIPID PANEL triglyceride s 65 mg/dL 0-149 Not Available [facility] ([facility]) [address] [place], [address], 11/23/2024 12:12:23 11/22/19 25 11/23/2024 LIPID PANEL HDL cholesterol 85 mg/dL >39 Not Available [facility] ([facility]) [address] [facility], [place], [address], 11/23/2024 12:12:23 11/22/19 25 11/23/2024 LIPID PANEL VLDL cholesterol prasanth 12 mg/dL 5-40 Not Available [facility] ([facility]) [address] [facility], [place], [address], 11/23/2024 12:12:23 11/22/19 25 11/23/2024 LIPID PANEL LDL chol calc ([facility]) 97 mg/dL 0-99 Not Available [facility] ([facility]) [address] [facility], [place], [address], 11/23/2024 12:12:23 11/22/19 25 11/23/2024 COMP. METAB OLIC PANEL (14) glucose 90 mg/dL 70-99 Not Available [facility] ([facility]) [address] [facility] [place], [address], 11/23/2024 12:12:24 11/22/19 25 11/23/2024 COMP. METAB OLIC PANEL (14) BUN 17 mg/dL 6-24 Not Available [facility] ([facility]) [address] [facility], [place], [address], 11/23/2024 12:12:24 11/22/19 25 11/23/2024 COMP. METAB OLIC PANEL (14) creatinine 0.65 mg/dL 0.57-1 .00 Not Available [facility] ([facility]) [address] [facility] [place], [address], 11/23/2024 12:12:24 11/22/19 25 11/23/2024 COMP. METAB OLIC PANEL (14) eGFR 108 mL/mi n/1.7 3 >59 Not Available [facility] ([facility]) [address] [facility] [place], [address], 11/23/2024 12:12:24 11/22/19 25 11/23/2024 COMP. METAB OLIC PANEL (14) BUN/creatini ne ratio 26 9-23 above high normal Not Available [facility] ([facility]) [address] [place], [address], 11/23/2024 12:12:24 11/22/19 25 11/23/2024 COMP. METAB OLIC PANEL (14) sodium 141 mmol/ L 134-14 4 Not Available [facility] ([facility]) [address] [facility] [place], [address], 11/23/2024 12:12:24 11/22/19 25 11/23/2024 COMP. METAB OLIC PANEL (14) potassium 4.0 mmol/ L 3.5-5. 2 Not Available [facility] ([facility]) [address] [facility] [place], [address], 11/23/2024 12:12:24 11/22/19 25 11/23/2024 COMP. METAB OLIC PANEL (14) chloride 99 mmol/ L 96-106 Not Available [facility] ([facility]) [address] [facility] [place], [address], 11/23/2024 12:12:24 11/22/19 25 11/23/2024 COMP. METAB OLIC PANEL (14) carbon dioxide, total 28 mmol/ L 20-29 Not Available [facility] ([facility]) [address] [facility] [place], [address], 11/23/2024 12:12:24 11/22/19 25 11/23/2024 COMP. METAB OLIC PANEL (14) calcium 9.6 mg/dL 8.7-10 .2 Not Available [facility] ([facility]) [address] [place], [address], 11/23/2024 12:12:24 11/22/19 25 11/23/2024 COMP. METAB OLIC PANEL (14) protein, total 7.1 g/dL 6.0-8. 5 Not Available [facility] ([facility]) [address] [facility] [place], [address], 11/23/2024 12:12:24 11/22/19 25 11/23/2024 COMP. METAB OLIC PANEL (14) albumin 4.5 g/dL 3.9-4. 9 Not Available [facility] ([facility]) [address] [facility], [place], [address], 11/23/2024 12:12:24 11/22/19 25 11/23/2024 COMP. METAB OLIC PANEL (14) globulin, total 2.6 g/dL 1.5-4. 5 Not Available [facility] ([facility]) [address] [place], [address], 11/23/2024 12:12:24 11/22/19 25 11/23/2024 COMP. METAB OLIC PANEL (14) bilirubin, total 0.3 mg/dL 0.0-1. 2 Not Available [facility] ([facility]) [address] [facility], [place], [address], 11/23/2024 12:12:24 11/22/19 25 11/23/2024 COMP. METAB OLIC PANEL (14) alkaline phosphatase 84 IU/L 44-121 Not Available [facility] ([facility]) [address] [facility], [place], [address], 11/23/2024 12:12:24 11/22/19 25 11/23/2024 COMP. METAB OLIC PANEL (14) AST (SGOT) 25 IU/L 0-40 Not Available [facility] ([facility]) [address] [facility], [place], [address], 11/23/2024 12:12:24 11/22/19 25 11/23/2024 COMP. METAB OLIC PANEL (14) ALT (SGPT) 23 IU/L 0-32 Not Available [facility] ([facility]) [address] [facility], [place], [address], 11/23/2024 12:12:24 11/22/19 25 11/23/2024 CBC, PLATE LET, NO DIFFE RENTI AL WBC 6.3 x10e3 /uL 3.4-10 .8 Not Available [facility] ([facility]) [address] [facility], [place], [address], 11/23/2024 12:12:26 11/22/1911/23/2024 CBC, PLATE LET, NO DIFFE RENTI AL RBC 4.12 x10e6 /uL 3.77-5 .28 Not Available [facility] ([facility]) [address] [facility], [place], [address], 11/23/2024 12:12:26 11/22/19 25 11/23/2024 CBC, PLATE LET, NO DIFFE RENTI AL hemoglobin 12.6 g/dL 11.1-1 5.9 Not Available [facility] ([facility]) [address] [facility], [place], [address], 11/23/2024 12:12:26 11/22/1911/23/2024 CBC, PLATE LET, NO DIFFE RENTI AL hematocrit 39.9 % 34.0-4 6.6 Not Available [facility] ([facility]) [address] [facility], [place], [address], 11/23/2024 12:12:26 11/22/1911/23/2024 CBC, PLATE LET, NO DIFFE RENTI AL MCV 97 fL 79-97 Not Available [facility] ([facility]) [address] [facility], [place], [address], 11/23/2024 12:12:26 11/22/1911/23/2024 CBC, PLATE LET, NO DIFFE RENTI AL MCH 30.6 pg 26.6-3 3.0 Not Available [facility] ([facility]) [address] [facility], [place], [address], 11/23/2024 12:12:26 11/22/19 25 11/23/2024 CBC, PLATE LET, NO DIFFE RENTI AL MCHC 31.6 g/dL 31.5-3 5.7 Not Available [facility] ([facility]) [address] [facility], [place], [address], 11/23/2024 12:12:26 11/22/19 25 11/23/2024 CBC, PLATE LET, NO DIFFE RENTI AL RDW 12.2 % 11.7-1 5.4 Not Available [facility] ([facility]) [address] [facility], [place], [address], 11/23/2024 12:12:26 11/22/19 25 11/23/2024 CBC, PLATE LET, NO DIFFE RENTI AL platelets 371 x10e3 /uL 150-45 0 Not Available [facility] ([facility]) [address] [facility], [place], [address], 11/23/2024 12:12:26 11/22/19 25 11/23/2024 ALBUM IN/CR EAT RATIO , RANDO M UR creatinine, urine 74.7 mg/dL notest ab. Not Available [facility] ([facility]) [address] [facility], [place], [address], 11/23/2024 12:12:29 11/22/19 25 11/23/2024 ALBUM IN/CR EAT RATIO , RANDO M UR albumin, urine 4.2 ug/mL notest ab. Not Available [facility] ([facility]) [address] [facility], [place], [address], 11/23/2024 12:12:29 11/22/19 25 11/23/2024 ALBUM IN/CR EAT RATIO , RANDO M UR alb/creat ratio 6 mg/g_ creat 0-29 Sabina l: 0 - 29 Moder ately incre ased: 30 - 300 Sever phu incre ased: >300 Not Available [facility] ([facility]) [address] [facility], [place], [address], 11/23/2024 12:12:29 11/22/19 25 11/23/2024 TSH RFX ON ABNOR MAL TO FREE T4 TSH 3.260 uIU/m L 0.450- 4.500 Not Available [facility] ([facility]) [address] [facility], [place], [address], 11/23/2024 12:12:31 11/22/1911/23/2024 HEMOG LOBIN A1C hemoglobin A1C 8.3 % 4.8-5. 6 above high normal Predi abete s: 5.7 - 6.4 Diabe marty: >6.4 Glyce kika contr ol for adult s with diabe marty: <7.0 Not Available [facility] ([facility]) [address] [facility], [place], [address], 11/23/2024 12:12:32 03/01/2003/02/2025 MEASL ES/MU MPS/R UBELL A IMMUN ITY rubella antibodies, IgG 20.10 index immune >0.99 Non-i mmune <0.90 Equiv ocal 0.90 - 0.99 Immun e >0.99 Not Available [facility] ([facility]) [address] [facility], [place], [address], 03/02/2025 09:36:16 03/01/2003/02/2025 MEASL ES/MU MPS/R UBELL A IMMUN ITY measles antibodies, IgG 140.0 AU/mL immune >16.4 Negat lucrecia <13.5 Equiv ocal 13.5 - 16.4 Posit lucrecia >16.4 Prese nce of antib odies to Rubeo la is presu mptiv e evide nce of immun ity excep t when acute infec tion is suspe cted. Not Available [facility] ([facility]) [address] [facility], [place], [address], 03/02/2025 09:36:16 03/01/2003/02/2025 MEASL ES/MU MPS/R UBELL A IMMUN ITY mumps abs, IgG 207.0 AU/mL immune >10.9 Negat lucrecia <9.0 Equiv ocal 9.0 - 10.9 Posit lucrecia >10.9 A posit lucrecia resul t gener ally indic ates past expos ure to Mumps virus or previ ous vacci natio n. Not Available [facility] ([facility]) [address] [facility], [place], [address], 03/02/2025 09:36:16 03/01/2003/02/2025 VARIC RAJINDER- ZOSTE R [...] not been acqui red. Not Available [facility] ([facility]) [address] [facility], [place], [address], 03/02/2025 09:36:17 03/01/20 25 03/02/2025 QUANT IFERO N-TB GOLD PLUS quantiferon incubation INCUBA TION PERFOR MED. Not Available [facility] ([facility]) [address] [facility], [place], [address], 03/05/2025 14:28:17 03/01/2003/02/2025 QUANT IFERO N-TB GOLD [...] ol for the test. Not Available [facility] ([facility]) [address] [place], [address], 03/05/2025 14:28:17 03/01/20 25 03/05/2025 QUANT IFERO N-TB GOLD PLUS quantiferon- TB gold plus NEGATI VE negati ve No respo nse to M lissette salazaros is antig ens detec elida. Infec tion with M tuber marieos is is unlik phu, but high risk indiv idual s shoul d be consi dered for addit ional testi ng (ATS/ IDSA/ CDC Clini prasanth Pract ice Guide lines , 2017) . The refer ence range is an Antig en minus Nil resul t of <0.35 IU/mL . Chemi lumin escen ce immun oassa y metho dolog y Not Available [facility] ([facility]) [address] [facility], [place], [address], 03/05/2025 14:28:17 03/01/20 25 03/05/2025 QUANT IFERO N-TB GOLD PLUS quantiferon TB1 Ag value 0.02 IU/mL Not Available [facility] ([facility]) [address] [place], [address], 03/05/2025 14:28:17 03/01/20 25 03/05/2025 QUANT IFERO N-TB GOLD PLUS quantiferon TB2 Ag value 0.04 IU/mL Not Available [facility] ([facility]) [address] [place], [address], 03/05/2025 14:28:17 03/01/20 25 03/05/2025 QUANT IFERO N-TB GOLD PLUS quantiferon nil value 0.02 IU/mL Not Available [facility] ([facility]) [address] [place], [address], 03/05/2025 14:28:17 03/01/20 25 03/05/2025 QUANT IFERO N-TB GOLD PLUS quantiferon mitogen value 7.02 IU/mL Not Available [facility] ([facility]) [address], [place], [address], 03/05/2025 14:28:17 04/04/20 25 04/04/2025 Hemog lobin A1c/H emogl obin. total in Blood hemoglobin A1C/hemoglob in.total in blood 8.2 % low: 4%high : 6% abnormal Not Available Not Available 06/14/2025 10:11:06 04/04/20 25 04/04/2025 Hemog lobin A1c/H emogl obin. total in Blood interpretati on and review of laboratory results Abnorm al Not Available Not Available 10:11:06 06/14/2006/13/2025 XR, ankle No observ ation record ed. [email or web address] [facility] [address], [place], [address], 06/14/2025 10:06:28 06/26/20 25 06/25/2025 XR, ankle , 3 or more view No observ ation record ed. [facility] [address], [place], [address], 07/02/2025 16:16:12 08/05/20 25 08/05/2025 XR, foot, 3 or more view No observ ation record ed. NATHAN [facility] [address], [place], [address], 08/06/2025 14:07:10 08/06/20 25 08/05/2025 XR, ankle , 2 view No observ ation record ed. NATHAN [facility] [address], [place], [address], 08/07/2025 13:21:24 Result Notes None recorded. Problems Name Problem SNOMED Code Status Onset Date Resolution Date Notes Provider Name and Address Organization Details Recorded Time Neuropathy due to diabetes mellitus 758399142 Active 020 Radha Lisa APN, DIVIDING MACHINE OPERATOR HELPER-C Attn: Erick yost,[address] [facility], [place], [address], [facility] 5 11:24:49 Type 1 diabetes mellitus 94511903 Active 020 Radha Lisa, PCB DESIGNER, DIVIDING MACHINE OPERATOR HELPER-C Attn: Erick yost,[address] [facility], [place], [address], [facility] - [place] 5 11:24:49 Tobacco user [id number] Active 020 Radha Lisa, PCB DESIGNER, DIVIDING MACHINE OPERATOR HELPER-C Attn: Erick yost,[address] [facility], [place], [address], [facility] - [facility] 5 11:24:49 Pain of multiple joints 25773262 Active 020 [facility], PCB DESIGNER, DIVIDING MACHINE OPERATOR HELPER-C Attn: Erick yost,[address] [facility], [place], [address], [facility] - [facility] 5 11:24:49 Anti-nuclear factor detected 647885862 Active 020 [facility], PCB DESIGNER, DIVIDING MACHINE OPERATOR HELPER-C Attn: Erick yost,[address] [facility], [place], [address], [facility] - [facility] 5 11:24:49 Problem Notes None recorded. Procedures Surgical History Date Name Laterality Status Provider Name and Address Organization Details Recorded Time 06/08/20 24 colonoscopy completed GABRIELA Gotti [facility] 11/22/2024 11:14:25 delivery completed Lucero Burnett MA [facility] 09/11/2020 15:32:14 Carpal tunnel surgery completed Lucero Burnett MA [facility] 09/11/2020 15:32:35 Cholecystectomy completed Lucero Burnett MA [facility] 09/11/2020 15:32:42 release of trigger finger completed Lucero Burnett MA [facility] 09/11/2020 15:32:53 Imaging Results None recorded. Procedure Notes None recorded. Medical Equipment None Reported. Allergies Allergen ID Allergen Name Allergen Category Reaction Reaction Severity Criticality Documentation Date Start Date Code Code System Note Provider Name and Address Organization Details Recorded Time 587329 hydrocodo ne Not available palpitati ons mild Not available 09/11/20202019 5489 RxNorm Radha Lisa APN, DIVIDING MACHINE OPERATOR HELPER-C Attn: Accountin g,[address] [facility], [place], [address], [facility] 5 11:23:48 717115 ibuprofen medicatio n Not available Not available Not available 09/11/20202019 5640 RxNorm Other react ions and sever ities : 'Swel ling - Moder ate'. Radha Lisa APN, DIVIDING MACHINE OPERATOR HELPER-C Attn: Accountin g,[address] [facility], [place], [address], [facility] - [facility] 5 11:23:48 665217 Product containin g penicilli n (product) medicatio n tachycard ia Not available Not available 06/23/2023 77384 8001 SNOMED Ursula Jyoti null, [facility] 3 09:33:55 531378 cephalexi n medicatio n other Not available unabletoasse ss 11/29/20242024 2231 RxNorm pt repor elida ma and yobani Rabago LPN [facility] 5 17:19:39 Medications Name Sig Start Date [...] TAKE 1 TABLET BY MOUTH 1 TIME 08/17 /2023 completed Not Available Not Available Not Available [...] Not Available No t Available Dexcom G7 [employer] Infrastructure Consultant CHECK BLOOD GLUCOSE BEFORE EACH MEAL AND AT BEDTIME active Not Available Not Available No t Available Dexcom G7 Sensor device CHANGE EVERY 10 DAYS active Not Available Not Available No t Available Vitals Date Recorded Body height Body mass index (BMI) Body weight Oxygen saturation Respiratory rate Body temperature Heart rate Systolic And Diastolic Provider Name and Address Organization Details Last Updated DateTime 5 162.56 cm 23.9 kg/m2 12835.3 4 g 98 % 16 /min 97.5 [degF] 82 /min 120/68 mm[Hg] GABRIELA Gotti [place] - [facility] 5 11:16:26 Date Recorded Body height Body mass index (BMI) Body weight Oxygen saturation Heart rate Respiratory rate Body temperature Systolic And Diastolic Provider Name and Address Organization Details Last Updated DateTime 4 162.56 cm 22.7 kg/m2 34651.1 9 g 96 % 108 /min 16 /min 97.3 [degF] 128/72 mm[Hg] GABRIELA Gotti [facility] 4 10:24:50 Date Recorded Body height Body mass index (BMI) Body weight Oxygen saturation Heart rate Body temperature Systolic And Diastolic Provider Name and Address Organization Details Last Updated DateTime 4 162.56 cm 23.5 kg/m2 38534.1 5 g 98 % 78 /min 97.6 [degF] 108/72 mm[Hg] Eugenia Blanca MA [facility] 4 14:00:48 Date Recorded Body height Body mass index (BMI) Body weight Oxygen saturation Heart rate Respiratory rate Body temperature Systolic And Diastolic Provider Name and Address Organization Details Last Updated DateTime 5 162.56 cm 24.8 kg/m2 59719.8 2 g 98 % 90 /min 16 /min 98 [degF] 127/77 mm[Hg] Annalise Lentz MA [facility] 5 09:49:23 Date Recorded Body height Body mass index (BMI) Body weight Oxygen saturation Body temperature Heart rate Respiratory rate Systolic And Diastolic Provider Name and Address Organization Details Last Updated DateTime 5 162.56 cm 25.5 kg/m2 83141.4 2 g 98 % 97.7 [degF] 96 /min 16 /min 125/84 mm[Hg] Jelena Lopez MA [facility] 5 16:43:11 Social History Question Answer Notes LastModified by Organizat ion Details LastModified Time Tobacco Smoking Status Former Smoker quit 10/2023 GABRIELA Gotti, [facility] 01/12/2024 10:21:45 Do You Have An [...] Smoke? 0.25 PPD 6 Cigs A Day. [email or web address] Information not available 06/23/2023 General Stress Level Low Information not available 09/11/2020 Do You Use Sunscreen Routinely? Yes Information not available 09/11/2020 Has Tobacco Cessation Counseling Been Provided? Yes [email or web address] Information not available 06/23/2023 On What Date Was Tobacco Cessation Counseling Provided? 03/11/2025 Information not available 03/11/2025 How Many Years Have You Smoked Tobacco? 12 06/23/23 [email or web address] Information not available 06/23/2023 How Many Years Have You Used E-cigarettes Or Vape? 2024 Information not available 11/22/2024 Sex: Female Functional Status Question Answer Note LastModified by Organization Details LastModified Time Do you use any illicit or recreational drugs? Yes aline [email or web address] Information not available 06/23/2023 Do you or [...] anxious, or unable to sleep at night)? [id number] Information not available 03/11/2025 Family History Relationship [...] 2019 15:34:23 Mother Malignant neoplasm of skin [email or web address] Not available 06/23 09:36:07 Medical History Condition Response Coronary Artery Disease N Other N High Blood Pressure N Atrial Fibrillation N Kidney or Bladder Problems N Thyroid Problems N Blood Clots N COPD N Depression N GI Problems N Skin Problems N Eating Disorder N Anemia N Heart Attack ([place]) N Anxiety Disorder Y Diabetes Y Muscle, Joint, or Bone Problems N Seizures/Epilepsy N Acid Reflux (GERD) N Cancer N Stroke N Asthma N Allergies Y ADHD N Substance Abuse N High Cholesterol N Hepatitis N Liver Disease N Schizophrenia N Headaches N Heart Failure N Osteoporosis N Gynecological History Statement/Question Response Age at Menarche 14 Current Control Method Menopause Age at First Child 22 Obstetrics History GPAL:G 1 P 1 0 0 1 Type Value Full Term 1 Induced 0 Spontaneous 0 Living 1 Total 1 Immunizations Vaccine Type Date Status Note Provider Nam e and Address Organization Details Recorded Time Tdap 03/11/2025 completed Annalise Lentz MA [place], [place] - [place] 03/11/2025 11:34:09 Past Encounters Encounter ID Performer Location Encounter Start Date Encounter Closed Date Diagnosis/Indication Diagnosis SNOMED-CT Code Diagnosis ICD10 Code Diagnosis IMO Codes Diagnosis Note [id number] MD Adrián Arriaga (Adult Med) [address] [place] [address] 09/11/2020 09:09:20 09/12/2020 08:33:08 Adult health examination 259807568 Z00.01 Encouraged routine SORORITY MOTHER, vision, dental exams, well balanced diet. Type 1 lucita betes mellitus 32577938 E10.9 lantus 17 u q hsHumalog 1 unit for every 10 grams, andcorrect lucrecia dosing- gives 1 unit for every 50 over 150 based on bs readingsus es one touch ultra meterhas not had endocrine in a while Neuropathy due to diabetes mellitus 840457559 E13.42 dwp starting lower dose of gabapentin and will also refer to podiatry Tobacco user 567415745 Z 72.0 Smoking cessation encouraged . Pain of mu ltiple joints 33143707 M25.50 pain in todd hands and feet, knees; mother has RA, dwp will check labs as well [id number] Rachel scherer MD [facility] (Adult Med) [address] [place] [address] 10/10/2020 08:22:36 10/13/2020 11:52:07 Upper respiratory infection 32238481 J06.9 over two weeks of bronchial cough, now moving phlegm, will send amy and sanchez wattswp to increase fluids, OTC cold med prn, rest, good handwashin g Dyspnea 904072390 R06.00 prn albuterol Vaginal discharge 338078 006 N89.8 increased sugars since being sick, vaginal itching, dwp antifungal , increase fluids [id number] Radha Lisa APN, DIVIDING MACHINE OPERATOR HELPER-C [facility] (Adult Med) [address] [place] [address] 06/24/2021 13:41:39 06/29/2021 13:35:47 Candidiasis of vagina 51863120 B37.3 prone to yeast infections with abx use Fever 580624453 R50.9 advised pt to get covid test and follow cdc precaution s Dysuria 92615469 R30.9 will treat for bacterial infection, will need culture if not improving Type 1 lucita betes mellitus 36570154 E10.9 lantus 17 u q hsHumalog 1 [...] while, will refer to endocrine and podiatry [id number] MD Adrián Arriaga (Adult Med) [address] [place] [address] 06/23/2023 09:17:47 06/28/2023 11:59:35 Adult health examination 497484949 Z00.01 Encouraged routine SORORITY MOTHER, vision, dental exams, well balanced diet. Type 1 lucita betes mellitus 47791242 E10.9 since age 15 lantus 17 u [...] to podiatry Neuropathy due to diabetes mellitus 473578130 E13.42 dwp starting lower dose of gabapentin and will also refer to podiatry Pain of mu ltiple joints 70170994 M25.50 pain in todd hands and feet, knees; mother has RA, dwp will check labs as well Tobacco user 903932206 Z 72.0 Smoking cessation encouraged . Anti-nucle ar factor detected 006839829 R76.8 will get new testing Feeling stressed 5207984 06 Z73.3 not working Altered oscar wel function 57923986 R19.4 varies from constipati on and diarrhea, hx of gallbladde r removed, no prior scope, will refer to GI,advised diet/sympt om log [id number] MD Adrián Arriaga (Adult Med) [address] [place] [address] 01/12/2024 10:09:53 01/17/2024 16:07:56 Type 1 diabetes mellitus 45422618 E10.9 since age 15Cont with endocrineu ses one touch ultra meterrefer to podiatry Neuropathy due to diabetes mellitus 314450906 E13.42 dwp starting lower dose of gabapentin and will also refer to podiatry Altered oscar wel function 35824280 R19.4 varies from constipati on and diarrhea, hx of gallbladde r removed, no prior scope, will refer to GI,advised diet/sympt om log Fall W19.XXXA fell on buttocks recently hx of tailbone fx years ago, feels the same, sitting on pillow,adv ised pt to call if not improving [id number] MD Adrián WHITAKER (SCHEDULE CLERK) [address] [place] [address] 03/01/2024 13:37:53 03/05/2024 12:14:16 Routine gynecologic examination done 4234409928 9101 Z01.419 - Reviewed risks for infection and cancer; ordered screening tests as appropriat e Screening for malignant neoplasm of cervix 527752686 Z12.4 - Due for co-testing ; collected today Screening for malignant neoplasm of breast 842050273 Z12.31 - Due for screening mammogram; ordered today HIV screening 122778852 Z11.4 - Once in lifetime screening per USPSTF recommenda tions Hepatitis C screening 41 6117879 Z11.59 - Once in lifetime screening per USPSTF recommenda tions Pruritus of vagina 26129 003 L29.3 - f/u NuSwab; will treat as indicated by results Atrophic vaginitis 41002 000 N95.2 - Exam as well as history of vaginal dryness with superficia l dyspareuni a concerning for atrophic vaginitis in setting of menopause- Will treat with vaginal estrogen - 2g nightly x2 weeks, then 1g M/W/F thereafter - RTC as needed if symptoms not adequately controlled with vaginal estrogen alone [id number] MD Adrián Arriaga (Adult Med) [address] [place] [address] 11/22/2024 11:03:17 11/26/2024 13:13:26 Adult health examination 629044419 Z00.01 Encouraged routine S[employer]OR[employer] MOTHER, vision, dental exams, well balanced diet. Type 1 lucita betes mellitus 27074538 E10.9 since age 15Cont with endocrineu ses one touch ultra metersees podiatry Tobacco user 956343095 Z 72.0 Smoking cessation encouraged . Infection of tooth 27316 8007 K04.7 bottom molars, will send abjhoan, [facility] [id number] MD Adrián Arriaga (Adult Med) [address] [place] [address] 03/11/2025 09:24:36 03/12/2025 09:50:18 Requires diphtheria, tetanus and pertussis vaccination 221335445 Z23 016907 [facility] provided Health exa mination of sub-group 160128315 Z02.89 801187 form completed Type 1 lucita betes mellitus 38867050 E10.9 since age 15Cont with endocrine- Sees Dr Balderrama, has apt next week;uses one touch ultra metersees podiatry [id number] MD Adrián Arriaga (Adult Med) [address] [place] [address] 08/05/2025 16:33:36 08/07/2025 17:35:09 Foot pain 39577357 M79.671 [id number] Bruising to lateral aspect of foot/ankle , [...] Cruz Member ID Guarantor Name 08/05/2025 1 [facility] - MusicIP [facility] - DOS PRIOR TO 2025 (MEDICAID REPLACEMENT - HMO) [id number] Eugenia Hopson [id number] Eugenia Holland 08/05/2025 1 [place] Eugenia Hopson [id number] Eugenia Holland 08/05/2025 1 *SELF PAY* Stone Holland 06/23/2023 SLIDING FEE SCHEDULE - DISCOUNT Eugenia Holland 08/07/[address] [facility] - Music[facility] - DOS ON OR AFTER 2025 (MEDICAID REPLACEMENT - HMO) [id number] Eugenia Hopson [id number] Eugenia MooreKenzie Notes Date Note Type Note Provider Name and Address Organization Details Recorded Time 01/12/2024 text/html ER f/u from 10/2023. and her had the flu which make [...] worked in 2 years Radha Lisa APN, DIVIDING MACHINE OPERATOR HELPER-C Attn: Accounting, [address] [place], [address], [facility] 01/12/2024 10:52:11 03/01/2024 text/html ROS as noted in the [facility] Annual well woman- PCP: JULIA Mascorro Concerns today- Has a [...] 48). RANJANA JORDAN MD Attn: Accounting,[address] [place], [address], [place] [facility] 03/01/2024 16:25:25 11/22/2024 text/html here for annual exam,currently looking for dental insurance. pt has been having a lot of teeth pain. requesting abx. Radha Lisa APN, FNP-C Attn: Accounting,[address] [facility], [place], [address], [facility] - [facility] 11/22/2024 11:39:20 03/11/2025 text/html Patient is here for a work physical, no complaints today,Needs Tdap, has records from [facility] with Endocrine for type 1 diabetes, had appointment for tomorrow but had to reschedule for next week Radha Lisa APN, FNP-C Attn: Accounting,[address] [facility], [place], [address], [facility] - [facility] 03/11/2025 10:22:44 08/05/2025 text/html ROS as noted in the [...] provider.Has not used ice, heat or any [id number] medications Radha Lisa APN, FNP-C Attn: Accounting,[address] [facility], [place], [address], [facility] 08/06/2025 08:57:40 OBGyn Episode Ob Episode Information Episode Created Date Number of Fetuses Patient Bloodtype Patient rh Status Prepregnancy Weight lbs Domestic Partner Domestic Partner Phone Father Name Accountant Property Status 09/11/20 20 1 CLOSED Fetus Data First Name Last Name Admitted to NICU Weight (g) Sex Living Outcome Pediatric Complications Fetus ID Race Codes Race Delivery Type M Full Term [id number] Reuben Calculation Initial Reuben Date Initial Exam [...]
[2025-10-12 10:21] VITALS: BP 116/65; PULSE 96; RESP 16; TEMP 36.7; O2SAT 99
--- NOTE | 2025-10-12 10:43 | ED.EAR ---
HPI - Ear Problem General Chief complaint: Ear Stated complaint: Ear Pain Time Seen by Provider: 10/12/25 10:43 Source: patient Mode of arrival: ambulatory Limitations: no limitations History of Present Illness HPI Narrative: 50 yo F presents with c/o fullness and decreased hearing to both ears. Hx of cerumen impaction. All systems reviewed and negative except as noted above. Related Data Home Medications ?Medication ?Instructions ?Recorded ?Confirmed ?Last Taken ?Type blood-glucose sensor (Dexcom G7 09/08/24 09/08/24 Unknown History Sensor device) gabapentin 100 mg capsule mg 09/08/24 Unknown History insulin pump cartridge 05/26/25 Unknown History Allergies Allergy/AdvReac Type Severity Reaction Status Date / Time hydrocodone Allergy Anxiety Verified 10/12/25 10:43 ibuprofen Allergy Swelling Verified 10/12/25 10:43 of Lip/Tongue/Throat Penicillins Allergy Rash Verified 10/12/25 10:43 PMFSH Past Medical History Medical History Diabetes Surgical History Surgical History History of hand surgery History of Family History Family History Mother Family history non-contributory Social History Social History Living arrangements: with family Gender identity (if verbalized by the patient): Female Sexual Orientation (if Verbalized by the Patient): Straight or Heterosexual Spiritual care concerns: No Comments At time of signature, agree with nursing past medical, surgical, social and family history. There is no relevant family history pertinent to the presenting complaint. Exam Narrative: GENERAL: This is a well-nourished, well-developed patient, in no apparent distress. HEAD: normocephalic, atraumatic. EYES: PERRL. Sclera clear/white. Vision is grossly intact. EARS: External ears normal, Cerumen impaction to bilateral ear canals. After irrigation TMs normal without perforation. Hearing grossly intact. NOSE: External nose normal NECK: Neck supple, non-tender without lymphadenopathy, masses or thyromegaly. CARDIOVASCULAR: Regular rate and rhythm without murmurs, gallops, or rubs. RESPIRATORY: Clear to auscultation. Breath sounds equal bilaterally. No wheezes, rales, or rhonchi. SKIN: warm, Dry, intact with no suspicious lesions or rash, good texture and turgor. NEURO: awake, alert, and oriented to person, place and time. There were no obvious focal neurologic abnormalities. EXTREMITIES: No joint tenderness, effusion, or edema noted. Course Course Level of Care: Express Care Visit Vital Signs Vital signs: Vital Signs Temperature 36.7 C 10/12/25 10:21 Pulse Rate 96 10/12/25 10:21 Respiratory Rate 16 10/12/25 10:21 Blood Pressure 116/65 10/12/25 10:21 Pulse Oximetry 99 10/12/25 10:21 Oxygen Delivery Room Air 10/12/25 10:21 Temperature 36.7 C 10/12/25 10:21 Pulse Rate 96 10/12/25 10:21 Respiratory Rate 16 10/12/25 10:21 Blood Pressure 116/65 10/12/25 10:21 Pulse Oximetry 99 10/12/25 10:21 Oxygen Delivery Room Air 10/12/25 10:21 reviewed Procedures Ear Wax Removal Both Ears: Ear Wax Removal Date: 10/12/25 Ear Wax Removal Time: 10:45 Cerumenolytic Used: other ( warm water) Results: Re-examined: cerumen removed completely TM Examination: TM(s) intact, normal appearance Ear Canal Exam: atraumatic Patient Tolerated Procedure: well Complications: no problems Technique: ear canal irrigated MDM Differential Diagnosis Differential Diagnosis: serous otitis media, otitis media, otitis externa, cerumen impaction Discharge Plan Discharge Clinical Impression: Bilateral hearing loss due to cerumen impaction Patient Disposition: Home Condition: Stable Additional Instructions: Use antibiotic ear drops as prescribed. These are a preventative to prevent ear infection due to amount of water use today for irrigation. Patient Language: Cambodian Prescriptions: New ofloxacin 0.3 % drops 10 drp EACH EAR DAILY 7 Days Qty: 10 0RF No Action gabapentin 100 mg capsule (DME) Dexcom G7 Sensor Device MISCELLANEOUS insulin pump cartridge Follow-up/Referrals: Lisa,Radha Freire APN [Primary Care Provider, Unknown] Time of Disposition: 10:58
== END 2025-10-12 10:59 | disposition home or self-care (01) ==
PROVIDERS: Emergency Provider Nurse Practitioner Family; PCP Nurse Practitioner Family
DX: H61.23 Impacted cerumen, bilateral (principal); E11.9 Type 2 diabetes mellitus without complications
CPT/HCPCS: 69209; 99213; G0463